=== PATIENT | male | born 1970 | race Caucasian/White ===

== ENCOUNTER 2019-03-28 12:51 | Emergency (ER) | payer OTHER ==
--- NOTE | 2019-03-28 12:56 | ERPHSYRPT ---
- History of Present Illness Time Seen by Provider: 03/28/19 12:56 Source: patient Exam Limitations: no limitations Physician History: 48 y/o white male with h/o multiple sclerosis fell onto to his feet from height of step ladder. pt complains of left lateral lower left pain. hurts to bear weight Method of Injury: fell Occurred: yesterday Quality: constant, aching Severity of Pain-Max: moderate Severity of Pain-Current: moderate Lower Extremities Pain: leg: left Modifying Factors: Improves With: movement Associated Symptoms: other (hurts to bear weight) Allergies/Adverse Reactions: No Known Drug Allergies Allergy (Unverified 03/28/19 13:03) Home Medications: Amlodipine Besylate 10 mg PO DAILY 03/28/19 [History] Dextroamphetamine/Amphetamine [Dextroamp-Amphetamin 15 mg Tab] 15 mg PO DAILY [History] Duloxetine HCl 60 mg PO DAILY 03/28/19 [History] Gabapentin 300 mg PO DAILY 03/28/19 [History] Glatiramer Acetate 40 mg IM WEEKLY 03/28/19 [History] Zolpidem Tartrate 10 mg PO HS 03/28/19 [History] - Review of Systems Constitutional: No Symptoms Eyes: No Symptoms Ears, Nose, & Throat: No Symptoms Respiratory: No Symptoms Cardiac: No Symptoms Abdominal/Gastrointestinal: No Symptoms Genitourinary Symptoms: No Symptoms Musculoskeletal: No Symptoms Skin: No Symptoms Neurological: No Symptoms Psychological: No Symptoms Endocrine: No Symptoms Hematologic/Lymphatic: No Symptoms Immunological/Allergic: No Symptoms All Other Systems: Reviewed and Negative - Past Medical History Pertinent Past Medical History: Yes Neurological History: No Pertinent History ENT History: No Pertinent History Cardiac History: No Pertinent History Respiratory History: No Pertinent History Endocrine Medical History: No Pertinent History Musculoskeletal History: No Pertinent History GI Medical History: No Pertinent History History: No Pertinent History - Past Surgical History Past Surgical History: No Neuro Surgical History: No Pertinent History Cardiac: No Pertinent History Respiratory: No Pertinent History Gastrointestinal: No Pertinent History Genitourinary: No Pertinent History Musculoskeletal: No Pertinent History Male Surgical History: No Pertinent History - Nursing Vital Signs Nursing Vital Signs: Initial Vital Signs Temperature 97.7 F 03/28/19 12:58 Pulse Rate 85 03/28/19 12:58 Respiratory Rate 20 03/28/19 12:58 Blood Pressure 134/85 03/28/19 12:58 O2 Sat by Pulse Oximetry 100 03/28/19 12:58 Pain Scale Pain Intensity 0 - Physical Exam General Appearance: mild distress, alert, anxiety Eyes, Ears, Nose, Throat Exam: normal ENT inspection, moist mucous membranes Neck Exam: normal inspection, non-tender, supple, full range of motion Cardiovascular/Respiratory Exam: chest non-tender Gastrointestinal/Abdominal Exam: non-tender Back Exam: normal inspection, normal range of motion, No CVA tenderness, No vertebral tenderness Hips Exam: bilateral: non-tender, normal inspection, normal range of motion, no evidence of injury Legs Exam: right leg: non-tender, left leg: bone tenderness, soft tissue tenderness, bilateral leg: normal inspection, normal range of motion, no evidence of injury Knees Exam: bilateral knee: non-tender, normal inspection, normal range of motion, no evidence of injury Ankle Exam: bilateral ankle: non-tender, normal inspection, normal range of motion, no evidence of injury Foot Exam: bilateral foot: non-tender, normal inspection, normal range of motion , no evidence of injury Neuro/Tendon Exam: normal sensation, normal motor functions, normal tendon functions, responds to pain Mental Status Exam: alert, oriented x 3, cooperative Skin Exam: normal color, warm, dry SpO2 Interpretation: normal O2 Delivery: Room Air - Course Nursing assessment & vital signs reviewed: Yes Ordered Tests: Active Orders 24 hr Category Date Time Status Crutches STAT Care 03/28/19 14:21 Ordered LOWER LEG Stat Exams 03/28/19 13:11 Completed - Progress Progress: unchanged Progress Note: 03/28/19 14:28 xray left lower leg-no acute fx or dislocation Counseled pt/family regarding: diagnosis, need for follow-up, rad results - Departure Departure Disposition: Home Clinical Impression: Left leg pain Condition: Stable Critical Care Time: No Referrals: DOCTOR,NO FAMILY [Primary Care Provider] - Additional Instructions: ice pack to area 3 times daily for 2 days. ibuprofen 600mg orall tid with food. follow up with primary doctor for persistent symptoms. crutches for comfort but weight bearing as tolerated. Prescriptions: Oxycodone HCl/Acetaminophen [Percocet 5-325 mg Tablet] 1 each PO Q12H PRN PRN # 6 tablet MDD 2 PRN Reason: Pain
--- NOTE | 2019-03-28 13:45 | XRAY ---
Indication: Pain following fall. Comparison: None 2 views of the left lower leg demonstrates spurring of the patella, proximal tibia, and posterior calcaneus. No other bony, articular, or soft tissue abnormalities.
[2019-03-28 14:21] VITALS: BP 108/82; PULSE 82; O2SAT 99
[2019-03-28] MEDS ORDERED: PERCOCET TABLET 5/325MG PO STA (14:21)
[2019-03-28] MEDS ORDERED: PERCOCET TABLET 5/325MG ONE (14:45)
== END 2019-03-28 15:05 | disposition home or self-care (01) ==
LOC: ED 12:51
DX: M79.605 Pain in left leg (principal); G35 Multiple sclerosis; W17.89XA Other fall from one level to another, initial encounter; W11.XXXA Fall on and from ladder, initial encounter
CPT/HCPCS: 73590; 99283; A9270-GY

== ENCOUNTER 2019-09-06 11:31 | Emergency (ER) | payer MEDICARE ==
[2019-09-06] MEDS ORDERED: TORAdol 30 mg Injection IV ONE (11:45)
[2019-09-06] MEDS ORDERED: TORAdol 30 mg Injection ONE (12:05)
[2019-09-06 12:12] LABS: Absolute Neutrophil Ct (ANC) 4.19 (1.4-6.9); BASOPHIL % 0.6 % (0.0-0.4); Basophil (Absolute #) 0.04 (0-0.4); Eosinophil (Absolute #) 0.07 (0-0.5); Hematocrit 42.8 % (42-50); Hemoglobin 14.4 gm/dl (12.5-18.0); Lymphocyte (Absolute #) 1.97 (1.0-4.6); Mean Cell Volume 98.8 fl (78-100); Mean Corpuscular Hemoglobin 33.3 pg (26-32); Mean Corpuscular Hgb Concent. 33.6 g/dl (32-36); Mean Platelet Volume 8.7 fl (7.5-11.0); Monocyte (Absolute #) 0.77 (0.0-1.3); Monocytes % 10.9 % (0.0-12.0); Neutrophil % 59.5 % (36.0-66.0); Platelet Count 379 K/mm3 (150-450); Red Blood Count 4.33 M/mm3 (4.1-5.6); Red Cell Distribution Width 12.7 % (11.5-14.0)
[2019-09-06 12:21] LABS: ALBUMIN 4.5 g/dL (3.5-5.0); ALKALINE PHOSPHATASE 102 U/L (38-126); ANION GAP 12.4 MEQ/L (5-15); BLOOD UREA NITROGEN 14 mg/dL (9-20); CHLORIDE 105 mmol/L (98-107); Carbon Dioxide 29 mmol/L (22-30); Creatinine 1 0.84 mg/dL (0.66-1.25); Glucose 97 mg/dL (74-106); Potassium 5.2 mmol/L (3.5-5.1); SGOT/AST 22 U/L (17-59); SGPT/ALT 16 U/L (0-50); SODIUM 141 mmol/L (137-145); Total Protein 8.1 g/dL (6.3-8.2)
--- NOTE | 2019-09-06 12:37 | XRAY ---
Indication: Right hip pain 6 weeks. No known injury. Comparison: None AP pelvis and 2 views of the right hip demonstrates mild bilateral superior acetabular sclerosis/spurring and a few pelvic phleboliths. No other bony, articular, or soft tissue abnormalities.
--- NOTE | 2019-09-06 12:47 | ERPHSYRPT ---
- History of Present Illness Time Seen by Provider: 09/06/19 12:00 Source: patient Exam Limitations: no limitations Patient Subjective Stated Complaint: Pt has been seeing a neurologist for 2 years and they think he has MS but hasn't given a fore sure diagnosis as of this time, pt has been going to physical therapy for the past 6 weeks and it has caused his right hip to have severe pain that radiates down his entire leg, unable to have a bowel movement due to the leg pain, hx of chemo cancer and did do chemo and radiation in 2013 in the colon, Triage Nursing Assessment: Pt came to the ER from PT, in a hospital wheelchair, unable to get up or ambulate without help, severe pain from his right hip when standing, vitals wnl, pulses normal, krys strength normal, rates pain while laying as 3/10 but upon standing it is a 10/10, pain to right hip with palpatation Physician History: Patient is a 49-year-old male presents to our ED for evaluation of acute on chronic right hip pain. Patient states that he is currently being worked up for multiple sclerosis. The diagnosis has not been confirmed. However patient has been experiencing right hip pain which they believe is related to his possible multiple sclerosis. Patient's hip pain has been becoming more intense and frequent. Patient is currently in physical therapy for his right hip pain pain described as a sharp pain that tends to radiate down his right leg. Pain worse with weightbearing, movement, prolonged sitting posture and Valsalva maneuvers while having a bowel movement. Of note patient has a history of colon cancer previously treated with chemo and radiation. Last chemo was in 2013. Patient denies interval trauma. No fever. No nausea or vomiting. No diarrhea. No abdominal pain. Patient voices no other complaints at this time., Method of Injury: unknown Quality: sharpness Severity of Pain-Max: severe Severity of Pain-Current: severe Lower Extremities Pain: hip: right Modifying Factors: Improves With: immobilization, movement Associated Symptoms: No dizzy, No fainted, No seizure, No snapping sensation, No popping sensation Allergies/Adverse Reactions: No Known Drug Allergies Allergy (Verified 09/06/19 11:56) Home Medications: Amlodipine Besylate 10 mg PO DAILY 03/28/19 [History] Dextroamphetamine/Amphetamine [Dextroamp-Amphetamin 15 mg Tab] 15 mg PO DAILY [History] Duloxetine HCl 60 mg PO DAILY 03/28/19 [History] Gabapentin 900 mg PO TID 03/28/19 [History] Glatiramer Acetate 40 mg IM WEEKLY 03/28/19 [History] Buspirone HCl [Buspar] 15 mg PO TID 09/06/19 [History] Hx Tetanus, Diphtheria Vaccination/Date Given: Yes Hx Influenza Vaccination/Date Given: Yes Hx Pneumococcal Vaccination/Date Given: No - Review of Systems Constitutional: No Fever, No Chills Eyes: No Symptoms Ears, Nose, & Throat: No Symptoms Respiratory: No Cough, No Dyspnea Cardiac: No Symptoms, No Chest Pain, No Edema, No Syncope Abdominal/Gastrointestinal: No Symptoms, No Abdominal Pain, No Nausea, No Vomiting, No Diarrhea Genitourinary Symptoms: No Symptoms, No Dysuria Musculoskeletal: No Symptoms, No Back Pain, No Neck Pain Skin: No Symptoms, No Rash Neurological: No Dizziness, No Focal Weakness, No Sensory Changes Psychological: No Symptoms Endocrine: No Symptoms All Other Systems: Reviewed and Negative - Past Medical History Pertinent Past Medical History: Yes Neurological History: Other ENT History: No Pertinent History Cardiac History: High Cholesterol, Hypertension Respiratory History: No Pertinent History Endocrine Medical History: No Pertinent History Musculoskeletal History: Fibromyalgia, Osteoarthritis GI Medical History: No Pertinent History History: No Pertinent History Other Medical History: History of Colon CA, 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 meningitis - Past Surgical History Past Surgical History: No Neuro Surgical History: No Pertinent History Cardiac: No Pertinent History Respiratory: No Pertinent History Gastrointestinal: Appendectomy Genitourinary: No Pertinent History Musculoskeletal: Orthopedic Surgery Male Surgical History: No Pertinent History Other Surgical History: rt leg. colon. hernia. appendix - Social History Smoking Status: Former smoker Exposure to second hand smoke: No Drug Use: none Patient Lives Alone: Yes - Nursing Vital Signs Nursing Vital Signs: Initial Vital Signs Temperature 98.0 F 09/06/19 11:43 Pulse Rate 77 09/06/19 11:43 Blood Pressure 130/84 09/06/19 11:43 O2 Sat by Pulse Oximetry 99 09/06/19 11:43 Pain Scale Pain Intensity 8 - Physical Exam General Appearance: alert Eyes, Ears, Nose, Throat Exam: moist mucous membranes Neck Exam: non-tender, supple Cardiovascular/Respiratory Exam: chest non-tender, normal breath sounds, regular rate/rhythm, no respiratory distress Gastrointestinal/Abdominal Exam: non-tender, guarding Back Exam: normal inspection, No vertebral tenderness Hips Exam: right: pain, other (Muscular tenderness palpation at the anterolateral aspect of the right hip.) Neuro/Tendon Exam: normal sensation, normal motor functions Mental Status Exam: alert, oriented x 3, cooperative Skin Exam: normal color, warm, dry SpO2 Interpretation: normal SpO2: 99 O2 Delivery: Room Air - Course Nursing assessment & vital signs reviewed: Yes - Radiology Exams Hip X-ray Interpretation: Teleradiologist Report (No acute pathology) - CT Exams Lower Extremity CT Interpretation: Tele-radiologist Report (suggestive of AVN, Rt. hip) Ordered Tests: Active Orders 24 hr Category Date Time Status IV Insertion STAT Care 09/06/19 11:44 Active HIP UNI (2V) INCL PEL IF DONE Stat Exams 09/06/19 11:42 Completed LOWER EXTREMITY WO CONTRAST [CT] Stat Exams 09/06/19 12:57 Completed CBC W DIFF Stat Lab 09/06/19 12:00 Completed CMP Stat Lab 09/06/19 12:00 Completed Erythrocyte Sedimentation Rate Stat Lab 09/06/19 12:00 Completed Medication Summary Discontinued Medications Generic Name Dose Route Start Last Admin Trade Name Freq PRN Reason Stop Dose Admin Dexamethasone Sodium Phosphate 10 mg 09/06/19 14:15 09/06/19 14:26 Decadron 10mg Inj. IV 09/06/19 14:16 Not Given STAT ONE Dexamethasone Sodium Phosphate Confirm 09/06/19 14:21 Decadron 10mg Inj. Administered 09/06/19 14:22 Dose 10 mg .ROUTE .STK-MED ONE Ketorolac Tromethamine 30 mg 09/06/19 11:45 09/06/19 12:08 Toradol 30 Mg Injection IV 09/06/19 11:46 30 mg STAT ONE Administration Ketorolac Tromethamine Confirm 09/06/19 12:05 Toradol 30 Mg Injection Administered 09/06/19 12:06 Dose 30 mg .ROUTE .STK-MED ONE Morphine Sulfate 2 mg 09/06/19 12:58 09/06/19 13:22 Morphine Sulfate 2 Mg Inj IV 09/06/19 12:59 2 mg STAT ONE Administration Morphine Sulfate Confirm 09/06/19 13:21 Morphine Sulfate 2 Mg Inj Administered 09/06/19 13:22 Dose 2 mg .ROUTE .K-MED ONE Lab/Rad Data: Laboratory Result Diagrams 09/06/19 12:00 09/06/19 12:00 Laboratory Results 09/06/19 09/06/19 09/06/19 Range/Units 12:00 12:00 12:00 WBC 7.0 (4.0-10.5) K/mm3 RBC 4.33 (4.1-5.6) M/mm3 Hgb 14.4 (12.5-18.0) gm/dl Hct 42.8 (42-50) % MCV 98.8 (78-100) fl MCH 33.3 H (26-32) pg MCHC 33.6 (32-36) g/dl RDW 12.7 (11.5-14.0) % Plt Count 379 (150-450) K/mm3 MPV 8.7 (7.5-11.0) fl Gran % 59.5 (36.0-66.0) % Eos # (Auto) 0.07 (0-0.5) Absolute Lymphs (auto) 1.97 (1.0-4.6) Absolute Monos (auto) 0.77 (0.0-1.3) Lymphocytes % 28.0 (24.0-44.0) % Monocytes % 10.9 (0.0-12.0) % Eosinophils % 1.0 (0.00-5.0) % Basophils % 0.6 (0.0-0.4) % Absolute Granulocytes 4.19 (1.4-6.9) Basophils # 0.04 (0-0.4) ESR 42 H (0-15) mm/hr Sodium 141 (137-145) mmol/L Potassium 5.2 H (3.5-5.1) mmol/L Chloride 105 (98-107) mmol/L Carbon Dioxide 29 (22-30) mmol/L Anion Gap 12.4 (5-15) MEQ/L BUN 14 (9-20) mg/dL Creatinine 0.84 (0.66-1.25) mg/dL Estimated GFR > 60.0 ML/MIN Glucose 97 (74-106) mg/dL Calcium 10.0 (8.4-10.2) mg/dL Total Bilirubin 0.60 (0.2-1.3) mg/dL AST 22 (17-59) U/L ALT 16 (0-50) U/L Alkaline Phosphatase 102 (38-126) U/L Serum Total Protein 8.1 (6.3-8.2) g/dL Albumin 4.5 (3.5-5.0) g/dL - Progress Progress: improved Progress Note: 09/06/19 14:29 Patient reassessed. Pain much improved after ministration of morphine. CT suggestive of AVN of the right hip. Patient referred to orthopedic clinic. 09/06/19 14:31 Will prescribe a short course of norco Counseled pt/family regarding: lab results, diagnosis, need for follow-up, rad results - Departure Departure Disposition: Home Clinical Impression: AVN (avascular necrosis of bone), Hip pain Condition: Stable Critical Care Time: No Referrals: HARLEEN GO MD [Primary Care Provider] - Additional Instructions: Discharge/Care Plan JALEN MORA was seen on 09/06/19 in the Emergency Room. The patient was counseled regarding Diagnosis,Lab results, Imaging studies, need for follow up and when to return to the Emergency Room. Prescriptions given: Discharge Note I have spoken with the patient and/or caregivers. I have explained the patient' s condition, diagnosis and treatment plan based on the information available to me at this time. I have answered the patient's and/or caregiver's questions and addressed any concerns. The patient and/or caregivers have as good understanding of the patient's diagnosis, condition and treatment plan as can be expected at this point. The vital signs have been stable. The patient's condition is stable and appropriate for discharge from the emergency department. The patient will pursue further outpatient evaluation with the primary care physician or other designated or consulting physician as outlined in the discharge instructions. The patient and/or caregivers are agreeable to this plan of care and follow-up instructions have been explained in detail. The patient and/or caregivers have received these instruction. The patient/and or caregivers are aware that any significant change in condition or worsening of symptoms should prompt an immediate return to this or the closest emergency department or call 911. Prescriptions: Hydrocodone/APAP 5-325 Tab^^^ [Hiram 5-325 Tablet^^^] 1 tab PO Q6HPRN PRN #10 tablet MDD 6 PRN Reason: Pain Outpatient Orders: Ortho Referral Time Frame: 1 Day, Location: ORTHO CLINIC
[2019-09-06] MEDS ORDERED: MORPHINE SULFATE 2 MG INJ IV ONE (12:58)
[2019-09-06] MEDS ORDERED: MORPHINE SULFATE 2 MG INJ ONE (13:21)
--- NOTE | 2019-09-06 13:49 | XRAY ---
Indication: Right hip pain 6 weeks. No known injury. Multiple contiguous axial images obtained through the right hip. Two-dimensional sagittal and coronal reformatted images obtained. Comparison: None Right hip articulation intact without large effusion. Joint space preserved. Anterior superior aspect of the femur head demonstrates subtle subcortical serpiginous sclerotic line as seen in avascular necrosis. No bony remodeling or osseous destructive process. Femur head also demonstrated 8 mm subcortical cyst anteriorly. Superior acetabulum demonstrates mild bony spurring. Minimal vascular calcifications. Remaining visualized noncontrasted soft tissues unremarkable. Impression: 1. Femur head subcortical serpiginous sclerotic line. Rule out avascular necrosis. 2. Tiny femur head subcortical cyst and superior acetabulum bony spurring both presumed degenerative.
[2019-09-06] MEDS ORDERED: DECADRON 10MG INJ. ONE (14:21)
[2019-09-06] MEDS: DECADRON 10MG INJ. IV ONE ×2 (14:23→14:26)
[2019-09-06 14:50] VITALS: BP 157/78; PULSE 88; O2SAT 97
== END 2019-09-06 14:51 | disposition home or self-care (01) ==
LOC: ED 11:31
DX: M87.9 Osteonecrosis, unspecified (principal); M25.551 Pain in right hip; Z85.038 Personal history of other malignant neoplasm of large intestine; Z79.899 Other long term (current) drug therapy; E78.00 Pure hypercholesterolemia, unspecified; I10 Essential (primary) hypertension; M79.7 Fibromyalgia
CPT/HCPCS: 36415; 73502; 73700; 80053; 85025; 85652; 86140; 96374; 96375; 99284; J1100; J1885; J2270

== ENCOUNTER 2021-04-17 05:45 | Day surgery (SDC) | payer MEDICARE ==
[2021-04-17] MEDS ORDERED: Lactated Ringers 1,000 ML IV SCH (07:00)
[2021-04-17] MEDS ORDERED: DIPRIVAN 200 MG/20 ML IV ONE ×2 (07:25→07:56)
--- NOTE | 2021-04-17 09:19 | OP ---
SURGERY DATE/TIME: 04/17/2021 0745 PREOPERATIVE DIAGNOSIS: Prior history of colon cancer. POSTOPERATIVE DIAGNOSIS: Normal colon. PROCEDURE: Diagnostic colonoscopy. SURGEON: Stuart Jones M.D. ANESTHESIA: MAC by Rambo Yepez CRNA. ESTIMATED BLOOD LOSS: None. SPECIMENS: None. DESCRIPTION OF PROCEDURE: After informed written consent was obtained, the patient was taken to the endoscopy suite. He was placed in the left lateral decubitus position. Anesthesia was titrated to desired level of consciousness. Digital rectal exam showed normal sphincter tone and no internal lesions. The scope was inserted into the rectum and sequentially the entire colonic mucosa was traversed. The level of cecum was reached and verified with direct visualization of the ileocecal valve. Upon withdrawal careful mucosal inspection revealed no gross abnormalities, prep was noted to be good. Prior to withdrawal retroflexion was performed and showed no internal lesions. The scope was removed and the patient was transferred to the recovery room in good condition.
[2021-04-17 09:20] VITALS: BP 152/79; PULSE 71; O2SAT 98
== END 2021-04-17 08:57 | disposition home or self-care (01) ==
LOC: SDC 05:45
PROVIDERS: ATTEND Family Medicine
DX: Z08 Encounter for follow-up examination after completed treatment for malignant neoplasm (principal); Z85.038 Personal history of other malignant neoplasm of large intestine; I10 Essential (primary) hypertension; E78.5 Hyperlipidemia, unspecified; F90.9 Attention-deficit hyperactivity disorder, unspecified type; Z79.899 Other long term (current) drug therapy
CPT/HCPCS: J2704

== ENCOUNTER 2021-11-24 12:20 | Observation (INO) | payer MEDICARE ==
[2021-11-24] MEDS ORDERED: Sodium Chloride 0.9% 1000 ML 1,000 ML ONE ×3 (12:45→17:36)
[2021-11-24] MEDS ORDERED: Sodium Chloride 0.9% 1000 ML 1,000 ML IV STA ×2 (12:54→14:55)
[2021-11-24] MEDS ORDERED: Zofran 4 MG/2 ML VIAL IV ONE (12:54)
[2021-11-24] MEDS ORDERED: Hydromorphone 1 mg/ml Injection IV ONE ×2 (12:54→14:55)
[2021-11-24] MEDS ORDERED: PROTONIX 40 MG IV IV ONE ×2 (12:54→12:57)
[2021-11-24] MEDS ORDERED: Zofran 4 MG/2 ML VIAL ONE (12:57)
[2021-11-24] MEDS ORDERED: Hydromorphone 1 mg/ml Injection ONE ×2 (12:58→15:02)
--- NOTE | 2021-11-24 13:07 | ERPHSYRPT ---
- History of Present Illness Time Seen by Provider: 11/24/21 12:29 Historian: patient Exam Limitations: no limitations Patient Subjective Stated Complaint: to er c/o excessive diarrhea/abd pain and back pain with severe weakness noted. Triage Nursing Assessment: pt arrives pale/w/d resp easy, a@ox3. pt denies any vomiting. pt has had 2 moderate diarrhea movements since arrival all clear liquid no blood noted Physician History: 51 years old male presented in the ER with 3 days history of abdominal pain with nausea and multiple episodes of loose stool. Patient reports initially it was dark stool followed by loose watery. Multiple episodes. Not able to hold anything down. He took [id number] Imodium with no significant relief. Pain is more in the left lower quadrant, aggravated with palpation movements and bowel movement. No fever or chills reported. Patient reports generalized weakness fatigue tiredness etc. prior Timing/Duration: day(s) (3), constant, gradual onset, worse Activities at Onset: rest Quality: sharpness Abdominal Pain Onset Location: LLQ, generalized abdomen Pain Radiation: no radiation Severity of Pain-Max: moderate Severity of Pain-Current: moderate Modifying Factors: Worsens With: palpation Associated Symptoms: diarrhea, nausea, No vomiting Previous symptoms: no prior history Allergies/Adverse Reactions: No Known Drug Allergies Allergy (Verified 09/06/19 11:56) Home Medications: Duloxetine HCl 30 mg PO BID 03/28/19 [History] Gabapentin 900 mg PO BID 03/28/19 [History] Atorvastatin Calcium [Lipitor] 40 mg PO DAILY 04/14/21 [History] Lisinopril 20 mg [Zestril 20 MG] 20 mg PO DAILY 04/14/21 [History] Meloxicam 15 mg [Meloxicam 15 MG] 15 mg PO BID 11/24/21 [History] Modafinil 100 mg [Provigil 100MG Tablet] 200 mg PO BID 11/24/21 [History] Hx Tetanus, Diphtheria Vaccination/Date Given: Yes Hx Influenza Vaccination/Date Given: Yes Hx Pneumococcal Vaccination/Date Given: No Travel Risk - International Travel Have you traveled outside of the country in past 3 weeks: No - Coronavirus Screening Are you exhibiting any of the following symptoms?: No Close contact with a COVID-19 positive Pt in past 14-21 Days: No - Vaccine Status Have you recieved a Covid-19 vaccination: Yes [employer]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: [employer] - Review of Systems Constitutional: No Symptoms Eyes: No Symptoms Ears, Nose, & Throat: No Symptoms Respiratory: No Symptoms Cardiac: No Symptoms Abdominal/Gastrointestinal: Abdominal Pain, Nausea, Diarrhea Genitourinary Symptoms: No Symptoms Musculoskeletal: No Symptoms Skin: No Symptoms Neurological: No Symptoms Psychological: No Symptoms Endocrine: No Symptoms Hematologic/Lymphatic: No Symptoms Immunological/Allergic: No Symptoms - Past Medical History Pertinent Past Medical History: Yes Neurological History: Peripheral Neuropathy ENT History: No Pertinent History Cardiac History: High Cholesterol, Hypertension Respiratory History: No Pertinent History Endocrine Medical History: No Pertinent History Musculoskeletal History: Fibromyalgia, Osteoarthritis GI Medical History: Colorectal Cancer History: No Pertinent History Psycho-Social History: No Pertinent History Male Reproductive Disorders: No Pertinent History Other Medical History: History of Colon CA remission, MS - Past Surgical History Past Surgical History: No Neuro Surgical History: No Pertinent History Cardiac: No Pertinent History Respiratory: No Pertinent History Gastrointestinal: Appendectomy, Colon Resection, Hernia Repair Genitourinary: No Pertinent History Musculoskeletal: Joint Replacement, Orthopedic Surgery Male Surgical History: No Pertinent History Other Surgical History: open repair right femur. right hip replacement - Social History Smoking Status: Former smoker Exposure to second hand smoke: No Drug Use: none Patient Lives Alone: Yes - Nursing Vital Signs Nursing Vital Signs: Initial Vital Signs Temperature 98.1 F 11/24/21 12:27 Pulse Rate 73 11/24/21 12:27 Respiratory Rate 16 11/24/21 12:27 Blood Pressure 171/97 11/24/21 12:27 O2 Sat by Pulse Oximetry 99 11/24/21 12:27 Pain Scale Pain Intensity 8 - Physical Exam General Appearance: no apparent distress, alert Eye Exam: PERRL/EOMI Ears, Nose, Throat Exam: normal ENT inspection, pharynx normal Neck Exam: normal inspection, supple, full range of motion Respiratory Exam: normal breath sounds, lungs clear Cardiovascular Exam: regular rate/rhythm, normal heart sounds Gastrointestinal/Abdomen Exam: soft, normal bowel sounds, tenderness (Left lower quadrant), guarding Back Exam: normal inspection, normal range of motion Extremity Exam: normal inspection, normal range of motion, pelvis stable Neurologic Exam: alert, oriented x 3, cooperative Skin Exam: normal color SpO2 Interpretation: normal SpO2: 99 O2 Delivery: Room Air - Course EKG Interpreted by Me: RATE (72), Sinus Rhythm, NORMAL AXIS, NORMAL INTERVALS, NORMAL QRS Ordered Tests: Active Orders 24 hr Category Date Time Status IV Insertion STAT Care 11/24/21 12:54 Active NPO (ED) STAT Care 11/24/21 12:54 Active ABDOMEN AND PELVIS W/0 CONTRAS [CT] Stat Exams 11/24/21 13:18 Taken CBC W DIFF Stat Lab 11/24/21 12:54 Completed CMP Stat Lab 11/24/21 12:54 Completed LIPASE Stat Lab 11/24/21 12:54 Completed Lactic Acid Stat Lab 11/24/21 13:14 Completed UA W/RFX CULTURE Stat Lab 11/24/21 16:02 Ordered Transfer Order Routine Transfer 11/24/21 Ordered Medication Summary Discontinued Medications Generic Name Dose Route Start Last Admin Trade Name Freq PRN Reason Stop Dose Admin Hydromorphone HCl 0.5 mg 11/24/21 12:54 11/24/21 13:03 Hydromorphone 1 Mg/1ml Inj 1 Mg/Ml Syringe IV 11/24/21 12:55 0.5 mg STAT ONE Administration Hydromorphone HCl Confirm 11/24/21 12:58 Hydromorphone 1 Mg/1ml Inj 1 Mg/Ml Syringe Administered 11/24/21 12:59 Dose 1 mg .ROUTE .STK-MED ONE Hydromorphone HCl 1 mg 11/24/21 14:55 11/24/21 15:05 Hydromorphone 1 Mg/1ml Inj 1 Mg/Ml Syringe IV 11/24/21 14:56 1 mg STAT ONE Administration Hydromorphone HCl Confirm 11/24/21 15:02 Hydromorphone 1 Mg/1ml Inj 1 Mg/Ml Syringe Administered 11/24/21 15:03 Dose 1 mg .ROUTE .STK-MED ONE Sodium Chloride Confirm 11/24/21 12:45 Sodium Chloride 0.9% 1000 Ml Administered 11/24/21 12:46 Dose 1,000 mls @ ud .ROUTE .STK-MED ONE Sodium Chloride 1,000 mls @ 999 mls/hr 11/24/21 12:54 11/24/21 14:16 Sodium Chloride 0.9% 1000 Ml IV 11/24/21 13:54 Infused .Q1H1M STA Infusion Sodium Chloride 1,000 mls @ 999 mls/hr 11/24/21 14:55 11/24/21 15:04 Sodium Chloride 0.9% 1000 Ml IV 11/24/21 15:55 999 mls/hr .Q1H1M STA Administration Sodium Chloride Confirm 11/24/21 15:02 Sodium Chloride 0.9% 1000 Ml Administered 11/24/21 15:03 Dose 1,000 mls @ ud .ROUTE .STK-MED ONE Ondansetron HCl 4 mg 11/24/21 12:54 11/24/21 13:04 Ondansetron Hcl 4 Mg/2 Ml Vial IV 11/24/21 12:55 4 mg STAT ONE Administration Ondansetron HCl Confirm 11/24/21 12:57 Ondansetron Hcl 4 Mg/2 Ml Vial Administered 11/24/21 12:58 Dose 4 mg .ROUTE .STK-MED ONE Pantoprazole Sodium 40 mg 11/24/21 12:54 11/24/21 13:03 Pantoprazole 40 Mg Vial IV 11/24/21 12:55 40 mg STAT ONE Administration Pantoprazole Sodium Confirm 11/24/21 12:57 Pantoprazole 40 Mg Vial Administered 11/24/21 12:58 Dose 40 mg IV .STK-MED ONE Lab/Rad Data: Laboratory Result Diagrams 11/24/21 12:54 11/24/21 12:54 Laboratory Results 11/24/21 11/24/21 11/24/21 Range/Units 13:35 13:14 12:54 WBC (4.0-10.5) x10^3/uL RBC (4.1-5.6) x10^6/uL Hgb (12.5-18.0) g/dL Hct (42-50) % MCV (78-100) fL MCH (26-32) pg MCHC (32-36) g/dL RDW (11.5-14.0) % Plt Count (150-450) x10^3/uL MPV (7.5-11.0) fL Gran % (36.0-66.0) % Immature Gran % (Auto) (0.00-0.4) % Nucleat RBC Rel Count (0.00-0.1) % Eos # (Auto) (0-0.5) x10^3/uL Immature Gran # (Auto) (0.00-0.03) x10^3u/L Absolute Lymphs (auto) (1.0-4.6) x10^3/uL Absolute Monos (auto) (0.0-1.3) x10^3/uL Absolute Nucleated RBC (0.00-0.01) x10^3u/L Lymphocytes % (24.0-44.0) % Monocytes % (0.0-12.0) % Eosinophils % (0.00-5.0) % Basophils % (0.0-0.4) % Absolute Granulocytes (1.4-6.9) x10^3/uL Basophils # (0-0.4) x10^3/uL Sodium 140 (137-145) mmol/L Potassium 4.1 (3.5-5.1) mmol/L Chloride 108 H (98-107) mmol/L Carbon Dioxide 25 (22-30) mmol/L Anion Gap 10.6 (5-15) MEQ/L BUN 16 (9-20) mg/dL Creatinine 0.79 (0.66-1.25) mg/dL Estimated GFR > 60.0 ML/MIN Glucose 104 (74-106) mg/dL Lactic Acid 0.8 (0.4-2.0) Calcium 9.3 (8.4-10.2) mg/dL Total Bilirubin 0.30 (0.2-1.3) mg/dL AST 28 (17-59) U/L ALT 27 (0-50) U/L Alkaline Phosphatase 72 (38-126) U/L Serum Total Protein 6.3 (6.3-8.2) g/dL Albumin 3.6 (3.5-5.0) g/dL Lipase 140 (23-300) U/L C. difficile Screen NEGATIVE (NEGATIVE) C.difficile 027-NAP1-B1 PRESUMPTIVE NEGATIVE (NEGATIVE) 11/24/21 Range/Units 12:54 WBC 7.2 (4.0-10.5) x10^3/uL RBC 3.47 L (4.1-5.6) x10^6/uL Hgb 11.5 L (12.5-18.0) g/dL Hct 34.7 L (42-50) % MCV 100.0 (78-100) fL MCH 33.1 H (26-32) pg MCHC 33.1 (32-36) g/dL RDW 13.0 (11.5-14.0) % Plt Count 333 (150-450) x10^3/uL MPV 8.7 (7.5-11.0) fL Gran % 63.5 (36.0-66.0) % Immature Gran % (Auto) 0.3 (0.00-0.4) % Nucleat RBC Rel Count 0.0 (0.00-0.1) % Eos # (Auto) 0.22 (0-0.5) x10^3/uL Immature Gran # (Auto) 0.02 (0.00-0.03) x10^3u/L Absolute Lymphs (auto) 1.83 (1.0-4.6) x10^3/uL Absolute Monos (auto) 0.52 (0.0-1.3) x10^3/uL Absolute Nucleated RBC 0.00 (0.00-0.01) x10^3u/L Lymphocytes % 25.3 (24.0-44.0) % Monocytes % 7.2 (0.0-12.0) % Eosinophils % 3.0 (0.00-5.0) % Basophils % 0.7 (0.0-0.4) % Absolute Granulocytes 4.60 (1.4-6.9) x10^3/uL Basophils # 0.05 (0-0.4) x10^3/uL Sodium (137-145) mmol/L Potassium (3.5-5.1) mmol/L Chloride (98-107) mmol/L Carbon Dioxide (22-30) mmol/L Anion Gap (5-15) MEQ/L BUN (9-20) mg/dL Creatinine (0.66-1.25) mg/dL Estimated GFR ML/MIN Glucose (74-106) mg/dL Lactic Acid (0.4-2.0) Calcium (8.4-10.2) mg/dL Total Bilirubin (0.2-1.3) mg/dL AST (17-59) U/L ALT (0-50) U/L Alkaline Phosphatase (38-126) U/L Serum Total Protein (6.3-8.2) g/dL Albumin (3.5-5.0) g/dL Lipase (23-300) U/L C. difficile Screen (NEGATIVE) C.difficile 027-NAP1-B1 (NEGATIVE) - Progress Progress: improved, pain not gone completely, re-examined Progress Note: 11/24/21 14:54 51 years old is evaluated for abdominal pain with intractable diarrhea for the last 3 days. Patient has multiple episodes of diarrhea while in the ER. Lab work grossly unremarkable, CT finding consistent with enteritis. Given fluids along with symptomatic treatment on reevaluation feeling better. Has negative C. difficile. Discussed with Dr. Soni and patient is being admitted. Plan discussed with patient who understand and agrees with it. Will see patient in: hospital (observation) Counseled pt/family regarding: lab results, diagnosis, rad results - Departure Departure Disposition: Observation Clinical Impression: Acute gastroenteritis Condition: Stable Critical Care Time: No Referrals: NELDA CASTRO MD [Primary Care Provider] - Follow up/PCP as directed
[2021-11-24 13:17] LABS: Basophil (Absolute #) 0.05 x10^3/uL (0-0.4); Eosinophil (Absolute #) 0.22 x10^3/uL (0-0.5); Hematocrit 34.7 % (42-50); Hemoglobin 11.5 g/dL (12.5-18.0); Lymphocyte (Absolute #) 1.83 x10^3/uL (1.0-4.6); Lymphocytes % 25.3 % (24.0-44.0); Mean Corpuscular Hemoglobin 33.1 pg (26-32); Mean Corpuscular Hgb Concent. 33.1 g/dL (32-36); Mean Platelet Volume 8.7 fL (7.5-11.0); Monocyte (Absolute #) 0.52 x10^3/uL (0.0-1.3); Monocytes % 7.2 % (0.0-12.0); Neutrophil % 63.5 % (36.0-66.0); Platelet Count 333 x10^3/uL (150-450); Red Blood Count 3.47 x10^6/uL (4.1-5.6); White Blood Count 7.2 x10^3/uL (4.0-10.5)
[2021-11-24 13:22] LABS: ALBUMIN 3.6 g/dL (3.5-5.0); ALKALINE PHOSPHATASE 72 U/L (38-126); ANION GAP 10.6 MEQ/L (5-15); BLOOD UREA NITROGEN 16 mg/dL (9-20); CHLORIDE 108 mmol/L (98-107); Calcium 9.3 mg/dL (8.4-10.2); Carbon Dioxide 25 mmol/L (22-30); Creatinine 1 0.79 mg/dL (0.66-1.25); EST GLOMERULAR FILTRATION RATE > 60.0 ML/MIN; Glucose 104 mg/dL (74-106); LIPASE 140 U/L (23-300); Potassium 4.1 mmol/L (3.5-5.1); SGOT/AST 28 U/L (17-59); SGPT/ALT 27 U/L (0-50); SODIUM 140 mmol/L (137-145); Total Protein 6.3 g/dL (6.3-8.2)
[2021-11-24 14:27] LABS: 027 TOX PROD PRESUMPTIVE NEGATIVE (NEGATIVE); TOXIGENIC C. DIFF ORG NEGATIVE (NEGATIVE)
[2021-11-24 16:30] LABS: Appearance CLEAR (CLEAR); Bilirubin NEGATIVE (NEGATIVE); Dipstick done @ ? MAIN LAB; Glucose NEGATIVE (NEGATIVE); Ketones NEGATIVE (NEGATIVE); Nitrite NEGATIVE (NEGATIVE); Ph 5.5 (5-6); Protein,Urine Dip NEGATIVE (Negative); RBC NEGATIVE Ery/ul (0-5); Specific Gravity 1.015 (1.005-1.025); Urobilinogen 0.2 mg/dL (0-1)
[2021-11-24 16:34] LABS: RBC NONE SEEN /HPF (0-2); WBC NONE SEEN /HPF (0-5)
[2021-11-24 16:35] LABS: Bacteria NONE SEEN /HPF (NEGATIVE); Urine Cultured Indicated? NO
[2021-11-24] MEDS ORDERED: IMODIUM 2 MG PO ONE (17:04)
[2021-11-24 17:16] LABS: INFLUENZA A NEGATIVE (NEGATIVE); INFLUENZA B NEGATIVE (NEGATIVE); RESPIRATORY SYNCTIAL VIRUS NEGATIVE (Negative); SARS-CoV-2 Xpert Express NEGATIVE (NEGATIVE)
[2021-11-24] MEDS ORDERED: DUONEB 0.5-3 MG/3 ml Neb IH PRN (17:37)
[2021-11-24] MEDS ORDERED: MORPHINE SULFATE 4 MG INJ IV PRN (17:37)
[2021-11-24] MEDS ORDERED: Zofran 4 MG/2 ML VIAL IV PRN (17:37)
[2021-11-24] MEDS: Lomotil PO PRN ×2 (17:50→21:24)
[2021-11-24] MEDS: NEURONTIN PO SCH (18:29)
--- NOTE | 2021-11-24 19:40 | XRAY ---
Indication: Abdomen pain, nausea, and diarrhea. History colon cancer with resection 2013. Multiple contiguous axial images obtained through the abdomen and pelvis without contrast. Comparison: None Lung bases clear. Heart not enlarged. Intact right hip bipolar prosthesis produces beam artifact. Stomach is mildly distended with food/fluid. Noncontrasted stomach and bowel loops appear nonobstructed. Nonvisualization appendix. Intact sigmoid anastomosis. No free fluid/air. Nonobstructing 3 mm left renal calculus. Remaining liver, gallbladder, pancreas, spleen, adrenal glands, kidneys, ureters, and bladder appear unremarkable for noncontrast exam. Minimal aortoiliac calcifications without AAA. Osseous structures intact with minimal degenerative changes throughout the spine and mild levoscoliosis centered at L3. Impression: 1. Right total hip arthroplasty producing beam artifact. Chronic bony findings. 2. Nonobstructing left renal micro-calculus. 3. Remaining CT abdomen/pelvis without contrast exam is negative. Comment: Preliminary interpretation made by [facility]. No critical discrepancy.
[2021-11-24] MEDS: Cymbalta 30 MG Capsule PO SCH (21:24)
[2021-11-24] MEDS ORDERED: Provigil 100MG Tablet PO SCH (22:00)
[2021-11-24] MEDS: Hydromorphone 1 mg/ml Injection IV PRN (22:22)
[2021-11-24] MEDS: Sodium Chloride 0.9% W/ 20 mEq KCl/LITER 1,000 ML IV SCH (23:44)
[2021-11-25] MEDS: Hydromorphone 1 mg/ml Injection IV PRN ×4 (04:32→23:10)
[2021-11-25 05:23] LABS: Basophil (Absolute #) 0.04 x10^3/uL (0-0.4); Eosinophil % 3.9 % (0.00-5.0); Eosinophil (Absolute #) 0.25 x10^3/uL (0-0.5); Hematocrit 30.8 % (42-50); Hemoglobin 10.1 g/dL (12.5-18.0); Lymphocyte (Absolute #) 1.77 x10^3/uL (1.0-4.6); Lymphocytes % 27.8 % (24.0-44.0); Mean Corpuscular Hemoglobin 32.8 pg (26-32); Mean Corpuscular Hgb Concent. 32.8 g/dL (32-36); Mean Platelet Volume 8.7 fL (7.5-11.0); Monocyte (Absolute #) 0.58 x10^3/uL (0.0-1.3); Monocytes % 9.1 % (0.0-12.0); Neutrophil % 58.1 % (36.0-66.0); Platelet Count 285 x10^3/uL (150-450); Red Blood Count 3.08 x10^6/uL (4.1-5.6); White Blood Count 6.4 x10^3/uL (4.0-10.5)
[2021-11-25 05:58] LABS: ALBUMIN 3.1 g/dL (3.5-5.0); ALKALINE PHOSPHATASE 64 U/L (38-126); ANION GAP 7.9 MEQ/L (5-15); BLOOD UREA NITROGEN 13 mg/dL (9-20); CHLORIDE 110 mmol/L (98-107); Calcium 8.4 mg/dL (8.4-10.2); Carbon Dioxide 25 mmol/L (22-30); EST GLOMERULAR FILTRATION RATE > 60.0 ML/MIN; Glucose 85 mg/dL (74-106); Potassium 4.2 mmol/L (3.5-5.1); SGOT/AST 43 U/L (17-59); SGPT/ALT 26 U/L (0-50); SODIUM 139 mmol/L (137-145); Total Protein 5.6 g/dL (6.3-8.2)
[2021-11-25] MEDS: Sodium Chloride 0.9% W/ 20 mEq KCl/LITER 1,000 ML IV SCH ×3 (06:45→20:47)
[2021-11-25] MEDS: Provigil 100MG Tablet PO SCH ×2 (06:46→12:59)
[2021-11-25] MEDS ORDERED: LIPITOR 40MG PO SCH (10:00)
[2021-11-25] MEDS: Lomotil PO PRN (10:21)
[2021-11-25] MEDS: Cymbalta 30 MG Capsule PO SCH ×2 (10:21→21:11)
[2021-11-25] MEDS: ZOCOR 20MG PO SCH (10:21)
[2021-11-25] MEDS: Zestril 20 MG PO SCH (10:21)
[2021-11-25] MEDS: NEURONTIN PO SCH ×2 (10:22→21:11)
[2021-11-25] MEDS: PROTONIX 40 MG IV IV SCH (10:22)
--- NOTE | 2021-11-25 11:04 | PCM.HP ---
History of Present Illness - Chief Complaint Chief Complaint: Acute gastroenteritis History of Present Illness: is a 51 year old male pt of Dr. Jones (sees Adelina Warner) with hx colon ca (2013), MS, peripheral neuropathy, HTN, hyperlipidemia, and OA who was admitted through ER with enteritis. He had 4d of diarrhea, back/abd pain, and weakness. CT showed enteritis. He was neg for c. diff. He has been tolerating full liquid diet; did have episodes of diarrhea in the ER, but none overnight or this morning. Initially he says his stools were very dark, then became light colored. Denies any nausea/vomiting this morning. Right now c/o 7/10 low back pain, approx L4 midline, worse with movement. - Review of Systems Ears, Nose, & Throat: Nose Congestion Abdominal/Gastrointestinal: Abdominal Pain, Nausea, Vomiting, Diarrhea Musculoskeletal: Back Pain Neurological: Dizziness (x 4d), Parasthesia (chronic) All Other Systems: Reviewed and Negative Medications & Allergies Home Medications: Home Medication List Duloxetine HCl 30 mg PO BID 03/28/19 [History Confirmed 11/24/21] Gabapentin 900 mg PO BID 03/28/19 [History Confirmed 11/24/21] Atorvastatin Calcium [Lipitor] 40 mg PO DAILY 04/14/21 [History Confirmed 11/24/21] Lisinopril 20 mg [Zestril 20 MG] 20 mg PO DAILY 04/14/21 [History C onfirmed 11/24/21] Meloxicam 15 mg [Meloxicam 15 MG] 15 mg PO BID 11/24/21 [History Confirmed 11/24/21] Modafinil 100 mg [Provigil 100MG Tablet] 200 mg PO 0700,1300 11/24/21 [History Confirmed 11/24/21] Allergies/Adverse Reactions: Allergies Allergy/AdvReac Type Severity Reaction Status Date / Time No Known Drug Allergies Allergy Verified 09/06/19 11:56 - Past Medical History Past Medical History: Yes Neurological History: Peripheral Neuropathy ENT History: No Pertinent History Cardiac History: High Cholesterol, Hypertension Respiratory History: No Pertinent History Endocrine Medical History: No Pertinent History Musculoskelatal History: Fibromyalgia, Osteoarthritis GI Medical History: Colorectal Cancer History: No Pertinent History Pyscho-Social History: No Pertinent History Male Reproductive Disorders: No Pertinent History Comment: History of Colon CA remission, MS - Past Surgical History Past Surgical History: No Neuro Surgical History: No Pertinent History Cardiac History: No Pertinent History Respiratory Surgery: No Pertinent History GI Surgical History: Appendectomy, Colon Resection, Hernia Repair Genitourinary Surgical Hx: No Pertinent History Musculskeletal Surgical Hx: Joint Replacement, Orthopedic Surgery Male Surgical History: No Pertinent History Other Surgical History: open repair right femur. right hip replacement - Social History Smoking Status: Former smoker Exposure to second hand smoke: No Alcohol: Weekly Drug Use: none - Physical Exam Vital Signs: Vital Signs - 24 hr Temp Pulse Resp BP Pulse Ox 11/25/21 04:00 97.8 F 74 18 134/77 94 L 11/24/21 23:15 97.6 F 64 18 133/61 91 L 11/24/21 19:40 97.9 F 78 18 159/91 97 11/24/21 17:53 97.9 F 78 18 159/91 97 11/24/21 17:04 88 18 127/89 98 11/24/21 16:20 99 11/24/21 14:18 73 19 129/74 97 11/24/21 13:31 73 14 148/141 99 11/24/21 12:27 98.1 F 73 16 171/97 99 General Appearance: no apparent distress, alert Neurologic Exam: oriented x 3, cooperative Eye Exam: eyes nml inspection Ears, Nose, Throat Exam: moist mucous membranes Neck Exam: normal inspection Respiratory Exam: normal breath sounds, lungs clear, No crackles/rales, No rhonchi, No wheezing Cardiovascular Exam: regular rate/rhythm, normal heart sounds, No murmur Gastrointestinal/Abdomen Exam: soft, normal bowel sounds, tenderness (lower abdomen bilat), No distention, No mass, No guarding, No rebound Back Exam: normal inspection, other (the lumbar spine and paraspinal muscles are nttp throughout, no crepitus or lesions.) Extremity Exam: normal inspection, No swelling Skin Exam: normal color, warm, dry, No rash Results - Labs Lab/Micro Results: Lab Results-Last 24 Hours 11/24/21 11/24/21 11/24/21 Range/Units 12:54 12:54 13:14 WBC 7.2 (4.0-10.5) x10^3/uL RBC 3.47 L (4.1-5.6) x10^6/uL Hgb 11.5 L (12.5-18.0) g/dL Hct 34.7 L (42-50) % MCV 100.0 (78-100) fL MCH 33.1 H (26-32) pg MCHC 33.1 (32-36) g/dL RDW 13.0 (11.5-14.0) % Plt Count 333 (150-450) x10^3/uL MPV 8.7 (7.5-11.0) fL Gran % 63.5 (36.0-66.0) % Immature Gran % (Auto) 0.3 (0.00-0.4) % Nucleat RBC Rel Count 0.0 (0.00-0.1) % Eos # (Auto) 0.22 (0-0.5) x10^3/uL Immature Gran # (Auto) 0.02 (0.00-0.03) x10^3u/L Absolute Lymphs (auto) 1.83 (1.0-4.6) x10^3/uL Absolute Monos (auto) 0.52 (0.0-1.3) x10^3/uL Absolute Nucleated RBC 0.00 (0.00-0.01) x10^3u/L Lymphocytes % 25.3 (24.0-44.0) % Monocytes % 7.2 (0.0-12.0) % Eosinophils % 3.0 (0.00-5.0) % Basophils % 0.7 (0.0-0.4) % Absolute Granulocytes 4.60 (1.4-6.9) x10^3/uL Basophils # 0.05 (0-0.4) x10^3/uL Sodium 140 (137-145) mmol/L Potassium 4.1 (3.5-5.1) mmol/L Chloride 108 H (98-107) mmol/L Carbon Dioxide 25 (22-30) mmol/L Anion Gap 10.6 (5-15) MEQ/L BUN 16 (9-20) mg/dL Creatinine 0.79 (0.66-1.25) mg/dL Estimated GFR > 60.0 ML/MIN Glucose 104 (74-106) mg/dL Lactic Acid 0.8 (0.4-2.0) Calcium 9.3 (8.4-10.2) mg/dL Total Bilirubin 0.30 (0.2-1.3) mg/dL AST 28 (17-59) U/L ALT 27 (0-50) U/L Alkaline Phosphatase 72 (38-126) U/L Serum Total Protein 6.3 (6.3-8.2) g/dL Albumin 3.6 (3.5-5.0) g/dL Lipase 140 (23-300) U/L Urinalys Dipstick Clnc Urine Color (YELLOW) Urine Appearance (CLEAR) Urine pH (5-6) Ur Specific [place] (1.005-1.025) POC Urine Protein Conf (Negative) Urine Ketones (NEGATIVE) Urine Nitrite (NEGATIVE) Urine Bilirubin (NEGATIVE) Urine Urobilinogen (0-1) mg/dL Urine Leukocytes (NEGATIVE) Urine WBC (Auto) (0-5) /HPF Urine RBC (Auto) (0-2) /HPF U Epithel Cells (Auto) (FEW) /HPF Urine Bacteria (Auto) (NEGATIVE) /HPF Urine RBC (0-5) Jonny/ul Ur Culture Indicated? Urine Glucose (NEGATIVE) mg/dL C. difficile Screen (NEGATIVE) C.difficile 027-NAP1-B1 (NEGATIVE) Influenza Type A Ag (NEGATIVE) Influenza Type B Ag (NEGATIVE) RSV (PCR) (Negative) SARS-CoV-2 (PCR) (NEGATIVE) 11/24/21 11/24/21 11/24/21 Range/Units 13:35 16:02 Unknown WBC (4.0-10.5) x10^3/uL RBC (4.1-5.6) x10^6/uL Hgb (12.5-18.0) g/dL Hct (42-50) % MCV (78-100) fL MCH (26-32) pg MCHC (32-36) g/dL RDW (11.5-14.0) % Plt Count (150-450) x10^3/uL MPV (7.5-11.0) fL Gran % (36.0-66.0) % Immature Gran % (Auto) (0.00-0.4) % Nucleat RBC Rel Count (0.00-0.1) % Eos # (Auto) (0-0.5) x10^3/uL Immature Gran # (Auto) (0.00-0.03) x10^3u/L Absolute Lymphs (auto) (1.0-4.6) x10^3/uL Absolute Monos (auto) (0.0-1.3) x10^3/uL Absolute Nucleated RBC (0.00-0.01) x10^3u/L Lymphocytes % (24.0-44.0) % Monocytes % (0.0-12.0) % Eosinophils % (0.00-5.0) % Basophils % (0.0-0.4) % Absolute Granulocytes (1.4-6.9) x10^3/uL Basophils # (0-0.4) x10^3/uL Sodium (137-145) mmol/L Potassium (3.5-5.1) mmol/L Chloride (98-107) mmol/L Carbon Dioxide (22-30) mmol/L Anion Gap (5-15) MEQ/L BUN (9-20) mg/dL Creatinine (0.66-1.25) mg/dL Estimated GFR ML/MIN Glucose (74-106) mg/dL Lactic Acid (0.4-2.0) Calcium (8.4-10.2) mg/dL Total Bilirubin (0.2-1.3) mg/dL AST (17-59) U/L ALT (0-50) U/L Alkaline Phosphatase (38-126) U/L Serum Total Protein (6.3-8.2) g/dL Albumin (3.5-5.0) g/dL Lipase (23-300) U/L Urinalys Dipstick Clnc MAIN LAB Urine Color YELLOW (YELLOW) Urine Appearance CLEAR (CLEAR) Urine pH 5.5 (5-6) Ur Specific [place] 1.015 (1.005-1.025) POC Urine Protein Conf NEGATIVE (Negative) Urine Ketones NEGATIVE (NEGATIVE) Urine Nitrite NEGATIVE (NEGATIVE) Urine Bilirubin NEGATIVE (NEGATIVE) Urine Urobilinogen 0.2 (0-1) mg/dL Urine Leukocytes NEGATIVE (NEGATIVE) Urine WBC (Auto) NONE SEEN (0-5) /HPF Urine RBC (Auto) NONE SEEN (0-2) /HPF U Epithel Cells (Auto) NONE (FEW) /HPF Urine Bacteria (Auto) NONE SEEN (NEGATIVE) /HPF Urine RBC NEGATIVE (0-5) Jonny/ul Ur Culture Indicated? NO Urine Glucose NEGATIVE (NEGATIVE) mg/dL C. difficile Screen NEGATIVE (NEGATIVE) C.difficile 027-NAP1-B1 PRESUMPTIVE NEGATIVE (NEGATIVE) Influenza Type A Ag NEGATIVE (NEGATIVE) Influenza Type B Ag NEGATIVE (NEGATIVE) RSV (PCR) NEGATIVE (Negative) SARS-CoV-2 (PCR) NEGATIVE (NEGATIVE) 11/25/21 11/25/21 Range/Units 04:20 04:20 WBC 6.4 (4.0-10.5) x10^3/uL RBC 3.08 L (4.1-5.6) x10^6/uL Hgb 10.1 L (12.5-18.0) g/dL Hct 30.8 L (42-50) % MCV 100.0 (78-100) fL MCH 32.8 H (26-32) pg MCHC 32.8 (32-36) g/dL RDW 13.0 (11.5-14.0) % Plt Count 285 (150-450) x10^3/uL MPV 8.7 (7.5-11.0) fL Gran % 58.1 (36.0-66.0) % Immature Gran % (Auto) 0.5 H (0.00-0.4) % Nucleat RBC Rel Count 0.0 (0.00-0.1) % Eos # (Auto) 0.25 (0-0.5) x10^3/uL Immature Gran # (Auto) 0.03 (0.00-0.03) x10^3u/L Absolute Lymphs (auto) 1.77 (1.0-4.6) x10^3/uL Absolute Monos (auto) 0.58 (0.0-1.3) x10^3/uL Absolute Nucleated RBC 0.00 (0.00-0.01) x10^3u/L Lymphocytes % 27.8 (24.0-44.0) % Monocytes % 9.1 (0.0-12.0) % Eosinophils % 3.9 (0.00-5.0) % Basophils % 0.6 (0.0-0.4) % Absolute Granulocytes 3.70 (1.4-6.9) x10^3/uL Basophils # 0.04 (0-0.4) x10^3/uL Sodium 139 (137-145) mmol/L Potassium 4.2 (3.5-5.1) mmol/L Chloride 110 H (98-107) mmol/L Carbon Dioxide 25 (22-30) mmol/L Anion Gap 7.9 (5-15) MEQ/L BUN 13 (9-20) mg/dL Creatinine 0.80 (0.66-1.25) mg/dL Estimated GFR > 60.0 ML/MIN Glucose 85 (74-106) mg/dL Lactic Acid (0.4-2.0) Calcium 8.4 (8.4-10.2) mg/dL Total Bilirubin 0.30 (0.2-1.3) mg/dL AST 43 (17-59) U/L ALT 26 (0-50) U/L Alkaline Phosphatase 64 (38-126) U/L Serum Total Protein 5.6 L (6.3-8.2) g/dL Albumin 3.1 L (3.5-5.0) g/dL Lipase (23-300) U/L Urinalys Dipstick Clnc Urine Color (YELLOW) Urine Appearance (CLEAR) Urine pH (5-6) Ur Specific [place] (1.005-1.025) POC Urine Protein Conf (Negative) Urine Ketones (NEGATIVE) Urine Nitrite (NEGATIVE) Urine Bilirubin (NEGATIVE) Urine Urobilinogen (0-1) mg/dL Urine Leukocytes (NEGATIVE) Urine WBC (Auto) (0-5) /HPF Urine RBC (Auto) (0-2) /HPF U Epithel Cells (Auto) (FEW) /HPF Urine Bacteria (Auto) (NEGATIVE) /HPF Urine RBC (0-5) Jonny/ul Ur Culture Indicated? Urine Glucose (NEGATIVE) mg/dL C. difficile Screen (NEGATIVE) C.difficile 027-NAP1-B1 (NEGATIVE) Influenza Type A Ag (NEGATIVE) Influenza Type B Ag (NEGATIVE) RSV (PCR) (Negative) SARS-CoV-2 (PCR) (NEGATIVE) - Radiology Impressions Radiology Exams & Impressions: Radiology Procedures Category Date Time Status ABDOMEN AND PELVIS W/0 CONTRAS [CT] Stat Exams 11/24/21 13:18 Completed Assessment/Plan (1) Enteritis Current Visit: Yes Status: Acute Assessment & Plan: unsure etiology, but he is responding well to tx, including antibiotics, so will continue current course. C. diff was neg. Try advancing diet slowly. Code(s): K52.9 - NONINFECTIVE GASTROENTERITIS AND COLITIS, UNSPECIFIED (2) Low back pain Current Visit: Yes Status: Acute Qualifiers: Chronicity: acute Back pain laterality: midline Sciatica presence: unspecified whether sciatica present Qualified Code(s): M54.50 - Low back pain, unspecified Assessment & Plan: will try lidoderm patch. Code(s): M54.50 - LOW BACK PAIN, UNSPECIFIED (3) HTN (hypertension) Current Visit: Yes Status: Chronic Qualifiers: Hypertension type: primary hypertension Qualified Code(s): I10 - Essential (primary) hypertension Code(s): I10 - ESSENTIAL (PRIMARY) HYPERTENSION (4) History of colon cancer Current Visit: Yes Status: Chronic Assessment & Plan: 2013 Code(s): Z85.038 - PERSONAL HISTORY OF MALIGNANT NEOPLASM OF LARGE INTESTINE (5) Multiple sclerosis Current Visit: Yes Status: Chronic Code(s): G35 - MULTIPLE SCLEROSIS
[2021-11-25] MEDS: Lidoderm Patch 5% TOP SCH (14:00)
[2021-11-25] MEDS: Acidophilus TABLET PO SCH ×2 (14:05→21:11)
[2021-11-26] MEDS: Hydromorphone 1 mg/ml Injection IV PRN ×2 (03:12→08:22)
[2021-11-26] MEDS: Provigil 100MG Tablet PO SCH (07:19)
[2021-11-26] MEDS: Sodium Chloride 0.9% W/ 20 mEq KCl/LITER 1,000 ML IV SCH ×2 (07:39→10:18)
[2021-11-26 08:12] VITALS: BP 160/99; PULSE 75; O2SAT 95
[2021-11-26] MEDS: ZOCOR 20MG PO SCH (08:57)
[2021-11-26] MEDS: Zestril 20 MG PO SCH (08:57)
[2021-11-26] MEDS: Cymbalta 30 MG Capsule PO SCH (08:57)
[2021-11-26] MEDS: PROTONIX 40 MG IV IV SCH (08:58)
[2021-11-26] MEDS: Acidophilus TABLET PO SCH (08:58)
[2021-11-26] MEDS: NEURONTIN PO SCH (08:58)
[2021-11-26] MEDS: Lidoderm Patch 5% TOP SCH ×2 (08:58→09:00)
--- NOTE | 2021-11-26 09:40 | PCM.DS ---
Discharge Summary Date of Admission: 11/24/21 17:33 Admitting Physician: GABE PARIS DO Primary Care Provider: NELDA CASTRO Allergies Allergies No Known Drug Allergies Allergy (Verified 09/06/19 11:56) Hospital Summary - Hospital Course Hospital Course: patient admitted with diarrhea, abd pain and back pain. he has spent a great deal of time in bed due to his back pain. he is now tolerating regular diet with no diarrhea. will be discharged to home - Vitals & Intake/Output Vital Signs: Vital Signs Temperature 97.9 F 11/26/21 08:00 Pulse Rate 75 11/26/21 08:00 Respiratory Rate 16 11/26/21 08:00 Blood Pressure 160/99 11/26/21 08:00 O2 Sat by Pulse Oximetry 95 11/26/21 08:00 Intake & Output: Intake & Output 11/23/21 11/24/21 11/25/21 11/26/21 11:59 11:59 11:59 11:59 Intake Total 2338 1901 Output Total 900 2150 Balance 1438 -249 Weight 90.9 kg 91.1 kg - Lab Result Diagrams: 11/25/21 04:20 11/25/21 04:20 - Radiology Exams Ordered Rad Exams-Entire Visit: Radiology Procedures Category Date Time Status ABDOMEN AND PELVIS W/0 CONTRAS [CT] Stat Exams 11/24/21 13:18 Completed Discharge Exam General Appearance: no apparent distress, alert Neurologic Exam: alert, oriented x 3 Respiratory Exam: normal breath sounds, lungs clear, No respiratory distress Cardiovascular Exam: regular rate/rhythm, normal heart sounds Gastrointestinal/Abdomen Exam: soft, No tenderness, No mass Skin Exam: normal color, warm, dry Final Diagnosis/Problem List - Final Discharge Diagnosis/Problem (1) Acute gastroenteritis Current Visit: Yes Status: Acute Assessment & Plan: recommend bland diet at home, push fluids Code(s): K52.9 - NONINFECTIVE GASTROENTERITIS AND COLITIS, UNSPECIFIED (2) Low back pain Current Visit: Yes Status: Acute Assessment & Plan: gave norco 5/325 12 tabs for home due to pain in back Code(s): M54.50 - LOW BACK PAIN, UNSPECIFIED - Discharge Disposition: Home, Self-Care Condition: Stable Prescriptions: New Hydrocodone/Acetaminophen [Hydrocodone-Acetamin 5-325 mg] 1 tab PO Q6HPRN PRN #12 tablet MDD 4 PRN Reason: Pain Continue Gabapentin 900 mg PO BID Duloxetine HCl 30 mg PO BID Lisinopril 20 mg [Zestril 20 MG] 20 mg PO DAILY Atorvastatin Calcium [Lipitor] 40 mg PO DAILY Modafinil 100 mg [Provigil 100MG Tablet] 200 mg PO 0700,1300 Meloxicam 15 mg [Meloxicam 15 MG] 15 mg PO BID Follow up with: NELDA CASTRO MD [Primary Care Provider] -
== END 2021-11-26 10:25 | disposition home or self-care (01) ==
LOC: ED 12:20 → MED SURG 17:33
PROVIDERS: ADMIT Family Medicine; ATTEND Family Medicine
DX: K52.9 Noninfective gastroenteritis and colitis, unspecified (principal); M54.50 Low back pain, unspecified; G35 Multiple sclerosis; I10 Essential (primary) hypertension; E78.5 Hyperlipidemia, unspecified; Z85.038 Personal history of other malignant neoplasm of large intestine; Z79.899 Other long term (current) drug therapy; Z20.828 Contact with and (suspected) exposure to other viral communicable diseases
CPT/HCPCS: 0241U; 36415; 74176; 80053; 81015; 83605; 83690; 85025; 87493; 96360; 96374; 96375; 96376; 99285; G0378; J1170; J2270; J2405; A9270-GY

== ENCOUNTER 2022-02-23 21:51 | Emergency (ER) | payer MEDICARE ==
[2022-02-23] MEDS ORDERED: Sodium Chloride 0.9% 1000 ML 1,000 ML ONE ×3 (22:17→23:32)
--- NOTE | 2022-02-23 22:24 | ERPHSYRPT ---
- History of Present Illness Time Seen by Provider: 02/23/22 22:24 Historian: patient Exam Limitations: no limitations Physician History: This is a 51-year-old white male patient of Dr. Castro who complains of 2 days of nausea diarrhea intermittently and bilateral lower quadrant abdominal pain. Prior to the abdominal pain occurring he had constipation but since that time he has had diarrhea. Patient has a history of colorectal cancer. He has a history of hypertension, peripheral neuropathy, multiple sclerosis hyperlipidemia as well as history of spinal cord issues in the distant past which have resolved. Patient denies chest pain. He denies abdominal pain. He is felt nauseated but no vomiting. Timing/Duration: day(s) Activities at Onset: none Quality: aching Abdominal Pain Onset Location: RLQ, LLQ Pain Radiation: no radiation Severity of Pain-Max: moderate Severity of Pain-Current: moderate Modifying Factors: Improves With: nothing Associated Symptoms: diarrhea, nausea, No vomiting Previous symptoms: same symptoms as today (In the distant past) Allergies/Adverse Reactions: No Known Drug Allergies Allergy (Verified 02/23/22 22:28) Home Medications: Duloxetine HCl 30 mg PO BID 03/28/19 [History] Gabapentin 900 mg PO BID 03/28/19 [History] Atorvastatin Calcium [Lipitor] 40 mg PO DAILY 04/14/21 [History] Lisinopril 20 mg [Zestril 20 MG] 20 mg PO DAILY 04/14/21 [History] Meloxicam 15 mg [Meloxicam 15 MG] 15 mg PO BID 11/24/21 [History] Modafinil 100 mg [Provigil 100MG Tablet] 200 mg PO 0700,1300 11/24/21 [History] Hx Tetanus, Diphtheria Vaccination/Date Given: Yes Hx Influenza Vaccination/Date Given: Yes Hx Pneumococcal Vaccination/Date Given: No Travel Risk - International Travel Have you traveled outside of the country in past 3 weeks: No - Coronavirus Screening Are you exhibiting any of the following symptoms?: No Close contact with a COVID-19 positive Pt in past 14-21 Days: No - Vaccine Status Have you recieved a Covid-19 vaccination: Yes Sponge Maker: [place] - Review of Systems Constitutional: No Symptoms Eyes: No Symptoms Ears, Nose, & Throat: No Symptoms Respiratory: No Symptoms Cardiac: No Symptoms Abdominal/Gastrointestinal: Abdominal Pain (Bilateral lower quadrant), Nausea, Diarrhea, No Vomiting, No Constipation Genitourinary Symptoms: No Symptoms Musculoskeletal: No Symptoms Skin: No Symptoms Neurological: No Symptoms Psychological: No Symptoms Endocrine: No Symptoms Hematologic/Lymphatic: No Symptoms Immunological/Allergic: No Symptoms All Other Systems: Reviewed and Negative - Past Medical History Pertinent Past Medical History: Yes Neurological History: Peripheral Neuropathy, Other ENT History: No Pertinent History Cardiac History: High Cholesterol Respiratory History: No Pertinent History Endocrine Medical History: Other Musculoskeletal History: Arthritis, Fractures GI Medical History: Colorectal Cancer History: No Pertinent History Psycho-Social History: No Pertinent History Male Reproductive Disorders: No Pertinent History Other Medical History: MS-Relapse Remitting. 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 Pt notes complete loss of LE motor and sensation as well as bowel and bladder. Pt notes doctors were not able to definitively dx this issue. Pt also notes colon CA in remission curerntly. R MAY 2019 - Past Surgical History Past Surgical History: No Neuro Surgical History: No Pertinent History Cardiac: No Pertinent History Respiratory: No Pertinent History Gastrointestinal: Appendectomy, Colon Resection, Hernia Repair Genitourinary: No Pertinent History Musculoskeletal: Joint Replacement, Orthopedic Surgery Male Surgical History: No Pertinent History Other Surgical History: open repair right femur. right hip replacement - Social History Smoking Status: Former smoker Exposure to second hand smoke: No Drug Use: none Patient Lives Alone: Yes - Nursing Vital Signs Nursing Vital Signs: Initial Vital Signs Temperature 98.1 F 02/23/22 22:13 Pulse Rate 116 H 02/23/22 22:13 Respiratory Rate 22 02/23/22 22:13 Blood Pressure 82/45 02/23/22 22:13 O2 Sat by Pulse Oximetry 97 02/23/22 22:13 Pain Scale Pain Intensity 6 - Physical Exam General Appearance: mild distress, alert, anxiety Eye Exam: PERRL/EOMI, eyes nml inspection Ears, Nose, Throat Exam: normal ENT inspection, moist mucous membranes, tonsillar exudate Neck Exam: normal inspection, non-tender, supple Respiratory Exam: normal breath sounds, lungs clear, airway intact, other, No chest tenderness, No respiratory distress Cardiovascular Exam: normal heart sounds, normal peripheral pulses, tachycardia Gastrointestinal/Abdomen Exam: soft, normal bowel sounds, tenderness (Bilateral lower quadrants), guarding (Bilateral lower quadrants), rebound (Bilateral lower quadrants) Rectal Exam: not done Back Exam: normal inspection, normal range of motion, No CVA tenderness, No vertebral tenderness Extremity Exam: normal inspection Neurologic Exam: alert, oriented x 3, cooperative, manager 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-XII nml as tested, nor mal mood/affect, nml cerebellar function, nml station & gait, sensation nml Skin Exam: normal color, warm, dry Lymphatic Exam: No adenopathy SpO2 Interpretation: normal O2 Delivery: Room Air - Course Nursing assessment & vital signs reviewed: Yes EKG Interpreted by Me: RATE (104), Sinus Tach, NORMAL AXIS, NORMAL INTERVALS, NORMAL QRS, NORMAL ST-T, Other Ordered Tests: Active Orders 24 hr Category Date Time Status EKG-ER Only STAT Care 02/24/22 00:55 Active Godinez [Catheter-[place] Godinez] STAT Care 02/23/22 22:43 Active IV Insertion STAT Care 02/23/22 22:28 Active IV Insertion-2nd Peripheral STAT Care 02/23/22 22:28 Active ABDOMEN AND PELVIS W/0 CONTRAS [CT] Stat Exams 02/23/22 22:44 Taken AMYLASE Stat Lab 02/23/22 22:30 Completed BLOOD CULTURE Stat Lab 02/23/22 22:55 Received BMP Stat Lab 02/24/22 00:23 Ordered CBC W DIFF Stat Lab 02/23/22 22:30 Completed CMP Stat Lab 02/23/22 22:30 Completed LIPASE Stat Lab 02/23/22 22:30 Completed Lactic Acid Stat Lab 02/23/22 22:43 Completed TROPONIN Q4H Lab 02/24/22 01:00 Ordered TROPONIN Q4H Lab 02/24/22 05:00 Ordered TROPONIN Q4H Lab 02/24/22 09:00 Ordered UA W/RFX CULTURE Stat Lab 02/23/22 22:57 Completed Medication Summary Generic Name Dose Route Start Last Admin Trade Name Freq PRN Reason Stop Dose Admin Sodium Chloride 1,000 mls @ 999 mls/hr 02/24/22 00:32 02/24/22 00:38 Sodium Chloride 0.9% 1000 Ml IV 02/24/22 01:32 999 mls/hr .Q1H1M STA Administration Norepinephrine/Dextrose 8 mg in 250 mls @ 15 mls/hr 02/24/22 00:46 02/24/22 01:02 Norepinephrine 8 Mg/250 Ml-D5w IV 03/26/22 00:45 5 mcg/min .[id number] PRN 9.375 mls/hr HYPOTENSION Administration Protocol 8 MCG/MIN Discontinued Medications Generic Name Dose Route Start Last Admin Trade Name Nikki PRN Reason Stop Dose Admin Acetaminophen 650 mg 02/24/22 00:32 02/24/22 00:38 Acetaminophen 325 Mg Tablet PO 02/24/22 00:33 650 mg STAT STA Administration Acetaminophen Confirm 02/24/22 00:36 Acetaminophen 325 Mg Tablet Administered 02/24/22 00:37 Dose 650 mg .ROUTE .STK-MED ONE Sodium Chloride Confirm 02/23/22 22:17 Sodium Chloride 0.9% 1000 Ml Administered 02/23/22 22:18 Dose 1,000 mls @ ud .ROUTE .STK-MED ONE Sodium Chloride 1,000 mls @ 999 mls/hr 02/23/22 22:42 02/23/22 23:31 Sodium Chloride 0.9% 1000 Ml IV 02/23/22 23:42 Infused .Q1H1M STA Infusion Sodium Chloride 1,000 mls @ 999 mls/hr 02/23/22 22:43 02/24/22 00:21 Sodium Chloride 0.9% 1000 Ml IV 02/23/22 23:43 Infused .Q1H1M STA Infusion Sodium Chloride Confirm 02/23/22 22:47 Sodium Chloride 0.9% 1000 Ml Administered 02/23/22 22:48 Dose 1,000 mls @ ud .ROUTE .STK-MED ONE Sodium Chloride 1,000 mls @ 999 mls/hr 02/23/22 23:24 02/23/22 23:35 Sodium Chloride 0.9% 1000 Ml IV 02/24/22 00:24 999 mls/hr .Q1H1M STA Administration Piperacillin Sod/Tazobactam 100 mls @ 200 mls/hr 02/23/22 23:24 02/23/22 23: 35 Sod 3.375 gm/ Sodium Chloride IV 02/23/22 23:53 200 mls/hr STAT ONE Administration Sodium Chloride Confirm 02/23/22 23:32 Sodium Chloride 0.9% 1000 Ml Administered 02/23/22 23:33 Dose 1,000 mls @ ud .ROUTE .STK-MED ONE Sodium Chloride Confirm 02/23/22 23:33 Sodium Chloride 100ml Mini-Bag Plus Administered 02/23/22 23:34 Dose 100 mls @ ud IV .STK-MED ONE Sodium Chloride Confirm 02/24/22 00:36 Sodium Chloride 0.9% 1000 Ml Administered 02/24/22 00:37 Dose 1,000 mls @ ud .ROUTE .STK-MED ONE Lidocaine HCl Confirm 02/23/22 22:32 Lidocaine Hcl 20 Mg/Ml Jelly Uro-Jet Administered 02/23/22 22:33 Dose 200 mg .ROUTE .STK-MED ONE Lidocaine HCl 200 mg 02/23/22 22:42 02/23/22 22:45 Lidocaine Hcl 20 Mg/Ml Jelly Uro-Jet TOP 02/23/22 22:43 200 mg STAT ONE Administration Ondansetron HCl 4 mg 02/23/22 22:43 02/23/22 22:49 Ondansetron Hcl 4 Mg/2 Ml Vial IV 02/23/22 22:44 4 mg STAT ONE Administration Ondansetron HCl Confirm 02/23/22 22:47 Ondansetron Hcl 4 Mg/2 Ml Vial Administered 02/23/22 22:48 Dose 4 mg .ROUTE .STK-MED ONE Piperacillin Sod/Tazobactam Sod Confirm 02/23/22 23:32 Piperacillin/Tazobactam Sodium 3.375 Gm Vial Administered 02/23/22 23:33 Dose 3.375 gm IV .STK-MED ONE Lab/Rad Data: Laboratory Result Diagrams 02/23/22 22:30 02/23/22 22:30 Laboratory Results 02/23/22 02/23/22 02/23/22 Range/Units 22:57 22:43 22:30 WBC (4.0-10.5) x10^3/uL RBC (4.1-5.6) x10^6/uL Hgb (12.5-18.0) g/dL Hct (42-50) % MCV (78-100) fL MCH (26-32) pg MCHC (32-36) g/dL RDW (11.5-14.0) % Plt Count (150-450) x10^3/uL MPV (7.5-11.0) fL Gran % (36.0-66.0) % Immature Gran % (Auto) (0.00-0.4) % Nucleat RBC Rel Count (0.00-0.1) % Eos # (Auto) (0-0.5) x10^3/uL Immature Gran # (Auto) (0.00-0.03) x10^3u/L Absolute Lymphs (auto) (1.0-4.6) x10^3/uL Absolute Monos (auto) (0.0-1.3) x10^3/uL Absolute Nucleated RBC (0.00-0.01) x10^3u/L Lymphocytes % (24.0-44.0) % Monocytes % (0.0-12.0) % Eosinophils % (0.00-5.0) % Basophils % (0.0-0.4) % Absolute Granulocytes (1.4-6.9) x10^3/uL Basophils # (0-0.4) x10^3/uL Sodium 132 L (137-145) mmol/L Potassium 3.8 (3.5-5.1) mmol/L Chloride 95 L (98-107) mmol/L Carbon Dioxide 18 L (22-30) mmol/L Anion Gap 23.2 H (5-15) MEQ/L BUN 55 H (9-20) mg/dL Creatinine 6.82 H (0.66-1.25) mg/dL Estimated GFR 9.1 ML/MIN Glucose 124 H (74-106) mg/dL Lactic Acid 1.7 (0.4-2.0) Calcium 9.6 (8.4-10.2) mg/dL Total Bilirubin 0.90 (0.2-1.3) mg/dL AST 81 H (17-59) U/L ALT 40 (0-50) U/L Alkaline Phosphatase 96 (38-126) U/L Serum Total Protein 8.4 H (6.3-8.2) g/dL Albumin 5.0 (3.5-5.0) g/dL Amylase 97 (30-110) U/L Lipase 60 (23-300) U/L Urinalys Dipstick Clnc MAIN LAB Urine Color JOSEPH (YELLOW) Urine Appearance SLIGHTLY CLOUDY (CLEAR) Urine pH 5.0 (5-6) Ur Specific [place] >=1.030 (1.005-1.025) POC Urine Protein Conf 30 (Negative) Urine Ketones TRACE (NEGATIVE) Urine Nitrite NEGATIVE (NEGATIVE) Urine Bilirubin SMALL (NEGATIVE) Urine Urobilinogen 0.2 (0-1) mg/dL Urine Leukocytes NEGATIVE (NEGATIVE) Urine WBC (Auto) 6-10 (0-5) /HPF Urine RBC (Auto) 6-10 (0-2) /HPF U Epithel Cells (Auto) NONE (FEW) /HPF Urine Bacteria (Auto) NONE (NEGATIVE) /HPF Urine RBC TRACE NON-HEM (0-5) Jonny/ul Unidentified Crystals 2-5 (NEGATIVE) /HPF Urine Mucus (Auto) SLIGHT (NEGATIVE) /HPF Urine Sperm (Auto) PRESENT (NEGATIVE) /HPF Ur Culture Indicated? NO Urine Glucose NEGATIVE (NEGATIVE) mg/dL Slides for Path Review 02/23/22 Range/Units 22:30 WBC 18.4 H (4.0-10.5) x10^3/uL RBC 3.70 L (4.1-5.6) x10^6/uL Hgb 12.2 L (12.5-18.0) g/dL Hct 36.5 L (42-50) % MCV 98.6 (78-100) fL MCH 33.0 H (26-32) pg MCHC 33.4 (32-36) g/dL RDW 13.8 (11.5-14.0) % Plt Count 392 (150-450) x10^3/uL MPV 9.1 (7.5-11.0) fL Gran % 78.5 H (36.0-66.0) % Immature Gran % (Auto) 0.7 H (0.00-0.4) % Nucleat RBC Rel Count 0.0 (0.00-0.1) % Eos # (Auto) 0.03 (0-0.5) x10^3/uL Immature Gran # (Auto) 0.12 H (0.00-0.03) x10^3u/L Absolute Lymphs (auto) 2.02 (1.0-4.6) x10^3/uL Absolute Monos (auto) 1.72 H (0.0-1.3) x10^3/uL Absolute Nucleated RBC 0.00 (0.00-0.01) x10^3u/L Lymphocytes % 11.0 L (24.0-44.0) % Monocytes % 9.3 (0.0-12.0) % Eosinophils % 0.2 (0.00-5.0) % Basophils % 0.3 (0.0-0.4) % Absolute Granulocytes 14.47 H (1.4-6.9) x10^3/uL Basophils # 0.05 (0-0.4) x10^3/uL Sodium (137-145) mmol/L Potassium (3.5-5.1) mmol/L Chloride (98-107) mmol/L Carbon Dioxide (22-30) mmol/L Anion Gap (5-15) MEQ/L BUN (9-20) mg/dL Creatinine (0.66-1.25) mg/dL Estimated GFR ML/MIN Glucose (74-106) mg/dL Lactic Acid (0.4-2.0) Calcium (8.4-10.2) mg/dL Total Bilirubin (0.2-1.3) mg/dL AST (17-59) U/L ALT (0-50) U/L Alkaline Phosphatase (38-126) U/L Serum Total Protein (6.3-8.2) g/dL Albumin (3.5-5.0) g/dL Amylase (30-110) U/L Lipase (23-300) U/L Urinalys Dipstick Clnc Urine Color (YELLOW) Urine Appearance (CLEAR) Urine pH (5-6) Ur Specific [place] (1.005-1.025) POC Urine Protein Conf (Negative) Urine Ketones (NEGATIVE) Urine Nitrite (NEGATIVE) Urine Bilirubin (NEGATIVE) Urine Urobilinogen (0-1) mg/dL Urine Leukocytes (NEGATIVE) Urine WBC (Auto) (0-5) /HPF Urine RBC (Auto) (0-2) /HPF U Epithel Cells (Auto) (FEW) /HPF Urine Bacteria (Auto) (NEGATIVE) /HPF Urine RBC (0-5) Jonny/ul Unidentified Crystals (NEGATIVE) /HPF Urine Mucus (Auto) (NEGATIVE) /HPF Urine Sperm (Auto) (NEGATIVE) /HPF Ur Culture Indicated? Urine Glucose (NEGATIVE) mg/dL Slides for Path Review YES - Progress Progress: unchanged Progress Note: 02/24/22 01:07 CAT scan of the abdomen pelvis shows sigmoid colitis. There is no evidence of free air or intra-abdominal fluid. Medical decision making: This patient has sepsis and and colitis. There is evidence of dehydration. Patient has leukocytosis and hypotension. I reviewed the patient history and the results of the patient's lab work-up and CAT scan of the abdomen pelvis with Dr. Almaraz. Patient was started on low-dose Levophed. No other recommendations were given by Dr. Almaraz who I am transferring care of this patient to at [facility] in [facility]. Counseled pt/family regarding: lab results, diagnosis, need for follow-up, rad results - Departure Departure Disposition: Transfer Clinical Impression: Sepsis, Hypotension, Colitis, Dehydration, Tachycardia, Leukocytosis, Acute renal failure Condition: Serious Critical Care Time: Yes Critical Care Time(excluding separately billable procedures): Critical 30-74 mins (45 minutes) Referrals: NELDA CASTRO MD [Primary Care Provider] - Follow up/PCP as directed
[2022-02-23] MEDS ORDERED: XYLOCAINE 2% Uro-Jet ONE (22:32)
[2022-02-23] MEDS ORDERED: XYLOCAINE 2% Uro-Jet TOP ONE (22:42)
[2022-02-23] MEDS ORDERED: Sodium Chloride 0.9% 1000 ML 1,000 ML IV STA ×3 (22:42→23:24)
[2022-02-23] MEDS ORDERED: Zofran 4 MG/2 ML VIAL IV ONE (22:43)
[2022-02-23] MEDS ORDERED: Zofran 4 MG/2 ML VIAL ONE (22:47)
[2022-02-23 22:50] LABS: Absolute Neutrophil Ct (ANC) 14.47 x10^3/uL (1.4-6.9); Basophil (Absolute #) 0.05 x10^3/uL (0-0.4); Eosinophil % 0.2 % (0.00-5.0); Eosinophil (Absolute #) 0.03 x10^3/uL (0-0.5); Hematocrit 36.5 % (42-50); Hemoglobin 12.2 g/dL (12.5-18.0); Lymphocyte (Absolute #) 2.02 x10^3/uL (1.0-4.6); Mean Cell Volume 98.6 fL (78-100); Mean Corpuscular Hgb Concent. 33.4 g/dL (32-36); Mean Platelet Volume 9.1 fL (7.5-11.0); Monocyte (Absolute #) 1.72 x10^3/uL (0.0-1.3); Monocytes % 9.3 % (0.0-12.0); Neutrophil % 78.5 % (36.0-66.0); Platelet Count 392 x10^3/uL (150-450); Red Cell Distribution Width 13.8 % (11.5-14.0); White Blood Count 18.4 x10^3/uL (4.0-10.5)
[2022-02-23 23:00] LABS: ANION GAP 23.2 MEQ/L (5-15); BILIRUBIN,TOTAL 0.9 mg/dL (0.2-1.3); Calcium 9.6 mg/dL (8.4-10.2); Creatinine 1 6.82 mg/dL (0.66-1.25); EST GLOMERULAR FILTRATION RATE 9.1 ML/MIN; Potassium 3.8 mmol/L (3.5-5.1); Total Protein 8.4 g/dL (6.3-8.2)
[2022-02-23 23:07] LABS: Appearance SLIGHTLY CLOUDY (CLEAR); Bilirubin SMALL (NEGATIVE); Dipstick done @ ? MAIN LAB; Glucose NEGATIVE (NEGATIVE); Ketones TRACE (NEGATIVE); Nitrite NEGATIVE (NEGATIVE); Protein,Urine Dip 30 (Negative); RBC TRACE NON-HEM Ery/ul (0-5); Specific Gravity >=1.030 (1.005-1.025); Urobilinogen 0.2 mg/dL (0-1)
[2022-02-23 23:14] LABS: Mucus SLIGHT /HPF (NEGATIVE); Sperm PRESENT /HPF (NEGATIVE)
[2022-02-23 23:16] LABS: Urine Cultured Indicated? NO
[2022-02-23] MEDS ORDERED: PIPERACILLIN/TAZOBACTAM 3.375 GM in Sodium Chloride 100ML MINI-BAG PLUS 100 ML IV ONE (23:24)
[2022-02-23] MEDS ORDERED: PIPERACILLIN/TAZOBACTAM IV ONE (23:32)
[2022-02-23] MEDS ORDERED: Sodium Chloride 100ML MINI-BAG PLUS 100 ML IV ONE (23:33)
[2022-02-24] MEDS ORDERED: Sodium Chloride 0.9% 1000 ML 1,000 ML IV STA (00:32)
[2022-02-24] MEDS ORDERED: TYLENOL 325 MG PO STA (00:32)
[2022-02-24] MEDS ORDERED: Sodium Chloride 0.9% 1000 ML 1,000 ML ONE (00:36)
[2022-02-24] MEDS ORDERED: TYLENOL 325 MG ONE (00:36)
[2022-02-24] MEDS ORDERED: NOREPINEPHRINE 8 MG/250 ML-D5W 8 MG/250 ML PLAST..BAG IV PRN (00:46)
[2022-02-24] MEDS ORDERED: NOREPINEPHRINE 8 MG/250 ML-D5W 8 MG/250 ML PLAST..BAG IV ONE (00:55)
[2022-02-24 00:58] LABS: Slide Review 1 YES
[2022-02-24 00:59] LABS: ANION GAP 16.5 MEQ/L (5-15); Creatinine 1 5.99 mg/dL (0.66-1.25); EST GLOMERULAR FILTRATION RATE 10.6 ML/MIN; Potassium 3.7 mmol/L (3.5-5.1)
[2022-02-24 01:08] LABS: Calcium 7.7 mg/dL (8.4-10.2)
[2022-02-24 01:17] LABS: INFLUENZA A NEGATIVE (NEGATIVE); INFLUENZA B NEGATIVE (NEGATIVE); RESPIRATORY SYNCTIAL VIRUS NEGATIVE (Negative); SARS-CoV-2 Xpert Express NEGATIVE (NEGATIVE)
[2022-02-24 01:33] VITALS: O2SAT 100
[2022-02-24 02:09] VITALS: BP 74/39; PULSE 108
--- NOTE | 2022-02-24 09:09 | XRAY ---
Indication: Right lower quadrant pain, weakness, and nausea. Multiple contiguous axial images obtained through the abdomen and pelvis without contrast. Comparison: November 24, 2021 Lung bases remain clear. Heart not enlarged. Noncontrasted stomach and bowel loops nonobstructed. Again appendix not visualized. There is now moderate fecal debris predominantly in the ascending and transverse colon. Intact sigmoid anastomosis. Urinary bladder is empty with new Godinez balloon catheter. No free fluid/air. Again nonobstructing left renal micro-calculus. Remaining liver, gallbladder, pancreas, spleen, adrenal glands, kidneys, and ureters appear unremarkable for noncontrast exam. Again minimal scattered aortoiliac calcifications without AAA. Osseous structures intact again with mild degenerative changes throughout the spine, mild levoscoliosis, and right total hip arthroplasty. Impression: 1. New right hemicolon fecal stasis. 2. Chronic findings including nonobstructed left renal micro-calculus, arteriosclerotic disease, and chronic bony findings. Comment: Preliminary interpretation made by [facility] who reports sigmoid colitis which I do not appreciate.
== END 2022-02-24 02:02 | disposition short-term general hospital (02) ==
LOC: ED 21:51
DX: A41.9 Sepsis, unspecified organism (principal); K52.9 Noninfective gastroenteritis and colitis, unspecified; R65.20 Severe sepsis without septic shock; N17.9 Acute kidney failure, unspecified; I95.9 Hypotension, unspecified; E86.0 Dehydration; R00.0 Tachycardia, unspecified; D72.829 Elevated white blood cell count, unspecified; R11.0 Nausea; R10.31 Right lower quadrant pain; R10.32 Left lower quadrant pain; I10 Essential (primary) hypertension; E78.5 Hyperlipidemia, unspecified; Z79.899 Other long term (current) drug therapy
CPT/HCPCS: 0241U; 36000; 36415; 51702; 74176; 80048; 80053; 81015; 82150; 83605; 83690; 84484; 85025; 87040; 93005; 96360; 96361; 96365; 96374; 99285; 99291; J2405; A9270-GY

== ENCOUNTER 2022-04-20 15:45 | Emergency (ER) | payer MEDICARE ==
--- NOTE | 2022-04-20 15:49 | ERPHSYRPT ---
- History of Present Illness Time Seen by Provider: 04/20/22 15:49 Source: patient Exam Limitations: no limitations Physician History: This is a 51-year-old white male patient of Dr. Castro who has frequent headaches. This last headache has been present for over a week. Patient has had prescriptions in the past for hydrocodone. He is out of his hydrocodone. Patient does not have a neurologist. He has no pain specialist that he sees. Patient states that he has been diagnosed with "brain lesions" and might have multiple sclerosis. Patient denies any head trauma recently. Patient also has a history of hypertension, hyperlipidemia and gastroesophageal reflux disease. Timing/Duration: week(s) (Over 1 week) Quality: throbbing Head Pain Location: global Severity of Pain-Max: moderate Severity of Pain-Current: moderate Recent Head Trauma: frequent headaches, chronic headaches Modifying Factors: Improves With: movement. Worsens With: exposure to light, noise Associated Symptoms: nausea/vomiting, No light-headedness, No loss of consciousness, No neck pain, No numbness in legs/feet, No sensitive to light Previous symptoms: same symptoms as today, no recent treatment Allergies/Adverse Reactions: No Known Drug Allergies Allergy (Verified 04/20/22 15:57) Home Medications: Duloxetine HCl 30 mg PO BID 03/28/19 [History] Atorvastatin Calcium [Lipitor] 40 mg PO DAILY 04/14/21 [History] Lisinopril 20 mg [Zestril 20 MG] 40 mg PO DAILY 04/14/21 [History] Dextroamphetamine/Amphetamine [Adderall Xr 30 mg Capsule] 1 ea DAILY 04/20/22 [History] Pantoprazole Sodium [Protonix] 40 mg PO DAILY 04/20/22 [History] Prazosin HCl [Minipress] 20 mg PO DAILY 04/20/22 [History] Tamsulosin HCl 0.4 mg [Flomax 0.4 MG] 0.4 mg PO DAILY 04/20/22 [History] Hx Tetanus, Diphtheria Vaccination/Date Given: Yes Hx Influenza Vaccination/Date Given: Yes Hx Pneumococcal Vaccination/Date Given: No Travel Risk - International Travel Have you traveled outside of the country in past 3 weeks: No - Coronavirus Screening Are you exhibiting any of the following symptoms?: No Close contact with a COVID-19 positive Pt in past 14-21 Days: No - Vaccine Status Have you recieved a Covid-19 vaccination: Yes 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: [place] - Review of Systems Constitutional: No Symptoms Eyes: No Symptoms Ears, Nose, & Throat: No Symptoms Respiratory: No Symptoms Cardiac: No Symptoms Abdominal/Gastrointestinal: No Symptoms Genitourinary Symptoms: No Symptoms Musculoskeletal: No Symptoms Skin: No Symptoms Neurological: Headache Psychological: No Symptoms Endocrine: No Symptoms Hematologic/Lymphatic: No Symptoms Immunological/Allergic: No Symptoms All Other Systems: Reviewed and Negative - Past Medical History Pertinent Past Medical History: Yes Neurological History: Peripheral Neuropathy, Other ENT History: No Pertinent History Cardiac History: High Cholesterol Respiratory History: No Pertinent History Endocrine Medical History: Other Musculoskeletal History: Arthritis, Fractures GI Medical History: Colorectal Cancer History: No Pertinent History Psycho-Social History: No Pertinent History Male Reproductive Disorders: No Pertinent History Other Medical History: MS-Relapse Remitting. 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 Pt notes complete loss of LE motor and sensation as well as bowel and bladder. Pt notes doctors were not able to definitively dx this issue. Pt also notes colon CA in remission curerntly. R MAY 2019 - Past Surgical History Past Surgical History: No Neuro Surgical History: No Pertinent History Cardiac: No Pertinent History Respiratory: No Pertinent History Gastrointestinal: Appendectomy, Colon Resection, Hernia Repair Genitourinary: No Pertinent History Musculoskeletal: Joint Replacement, Orthopedic Surgery Male Surgical History: No Pertinent History Other Surgical History: open repair right femur. right hip replacement - Social History Smoking Status: Former smoker Exposure to second hand smoke: No Drug Use: none Patient Lives Alone: Yes - Nursing Vital Signs Nursing Vital Signs: Initial Vital Signs Temperature 97.2 F 04/20/22 15:52 Pulse Rate 86 04/20/22 15:52 Respiratory Rate 18 04/20/22 15:52 Blood Pressure 138/93 04/20/22 15:52 O2 Sat by Pulse Oximetry 99 04/20/22 15:52 Pain Scale Pain Intensity 7 - Physical Exam General Appearance: no apparent distress, alert, anxiety Eye Exam: PERRL/EOMI, eyes nml inspection Ears, Nose, Throat Exam: normal ENT inspection, moist mucous membranes Neck Exam: normal inspection, non-tender, supple, full range of motion Respiratory Exam: airway intact, No chest tenderness, No respiratory distress Gastrointestinal/Abdominal Exam: No tenderness Back Exam: normal inspection, normal range of motion, No CVA tenderness, No vertebral tenderness Extremity Exam: normal inspection, normal range of motion, pelvis stable Mental Status Exam: alert, oriented x 3, 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 Blood Culture(s) Obtained: No Antibiotics given: No Counseled pt/family regarding: diagnosis, need for follow-up, rad results - Departure Departure Disposition: Home Clinical Impression: Recurrent headache Condition: Stable Critical Care Time: No Referrals: NELDA CASTRO MD [Primary Care Provider] - Follow up/PCP as directed Additional Instructions: Call your primary care doctor's office tomorrow to make arranges for a follow-up appointment for further evaluation and management and for referral to a neurologist and pain specialist for chronic pain control
--- NOTE | 2022-04-20 16:40 | XRAY ---
Indication: Headache, blurred vision, nausea. Multiple contiguous axial images obtained through the head without contrast. Comparison: None Normal appearing brain parenchyma, ventricles, and bony calvarium for patient's age. Visualized paranasal sinuses and mastoid air cells are clear. Impression: Normal CT head without contrast exam.
[2022-04-20] MEDS ORDERED: Hydromorphone 1 mg/ml Injection IM ONE (16:59)
[2022-04-20] MEDS ORDERED: Compazine 10 MG/2 ML IM ONE (17:00)
[2022-04-20] MEDS ORDERED: TORAdol 30 mg Injection IM ONE (17:00)
[2022-04-20] MEDS ORDERED: Compazine 10 MG/2 ML ONE (17:08)
[2022-04-20] MEDS ORDERED: TORAdol 30 mg Injection ONE (17:08)
[2022-04-20] MEDS ORDERED: Hydromorphone 1 mg/ml Injection ONE (17:08)
[2022-04-20 18:12] VITALS: BP 129/85; PULSE 90; O2SAT 97
== END 2022-04-20 18:12 | disposition home or self-care (01) ==
LOC: ED 15:45
DX: R51.9 Headache, unspecified (principal); I10 Essential (primary) hypertension; E78.5 Hyperlipidemia, unspecified; G35 Multiple sclerosis; Z79.899 Other long term (current) drug therapy
CPT/HCPCS: 70450; 96372; 99283; J1170; J1885

== ENCOUNTER 2022-08-25 13:38 | Emergency (ER) | payer MEDICARE ==
--- NOTE | 2022-08-25 14:04 | ERPHSYRPT ---
- History of Present Illness Time Seen by Provider: 08/25/22 14:04 Source: patient Exam Limitations: no limitations Physician History: This a 52-year-old white male who has history of recurrent migraine headaches. This episode of headache is severe and it has been lasting 5 days. Patient states he has seen her neurologist and they have adjusted the medication without any benefit per his report. He stated that Dr. Castro has him on Imitrex and [place] and that does not seem to be touching this pain. Patient did not suffer any head injury. Patient states that noise and bright lights bother him during the current episode Head Pain Location: global Severity of Pain-Max: moderate Severity of Pain-Current: moderate Recent Head Trauma: no recent headache/trauma, frequent headaches Modifying Factors: Improves With: exposure to light, movement, noise Associated Symptoms: No facial pain, No neck pain, No seizures, No stiff neck Previous symptoms: same symptoms as today, no recent treatment Allergies/Adverse Reactions: No Known Drug Allergies Allergy (Verified 08/25/22 14:04) Home Medications: Duloxetine HCl 30 mg PO BID 03/28/19 [History] Atorvastatin Calcium [Lipitor] 40 mg PO DAILY 04/14/21 [History] Lisinopril 20 mg [Zestril 20 MG] 40 mg PO DAILY 04/14/21 [History] Dextroamphetamine/Amphetamine [Adderall Xr 30 mg Capsule] 1 ea PO DAILY 04/20/22 [History] Pantoprazole Sodium [Protonix] 40 mg PO DAILY 04/20/22 [History] Tamsulosin HCl 0.4 mg [Flomax 0.4 MG] 0.4 mg PO DAILY 04/20/22 [History] Hydrocodone/Acetaminophen [Hydrocodone-Acetamin 5-325 mg] 1 tab PO Q6HPRN PRN MDD 4 08/25/22 [History] Sumatriptan Succinate [Imitrex] 100 mg PO DAILY PRN 08/25/22 [History] Hx Tetanus, Diphtheria Vaccination/Date Given: Yes Hx Influenza Vaccination/Date Given: Yes Hx Pneumococcal Vaccination/Date Given: No Travel Risk - International Travel Have you traveled outside of the country in past 3 weeks: No - Coronavirus Screening Are you exhibiting any of the following symptoms?: No Close contact with a COVID-19 positive Pt in past 14-21 Days: No - Vaccine Status Have you recieved a Covid-19 vaccination: Yes [employer]: [place] - Review of Systems Constitutional: No Symptoms Eyes: No Symptoms Ears, Nose, & Throat: No Symptoms Respiratory: No Symptoms Cardiac: No Symptoms Abdominal/Gastrointestinal: No Symptoms Genitourinary Symptoms: No Symptoms Musculoskeletal: No Symptoms Skin: No Symptoms Neurological: Headache Psychological: No Symptoms Endocrine: No Symptoms Hematologic/Lymphatic: No Symptoms Immunological/Allergic: No Symptoms All Other Systems: Reviewed and Negative - Past Medical History Pertinent Past Medical History: Yes Neurological History: Peripheral Neuropathy, Other ENT History: No Pertinent History Cardiac History: High Cholesterol Respiratory History: No Pertinent History Endocrine Medical History: Other Musculoskeletal History: Arthritis, Fractures GI Medical History: Colorectal Cancer History: No Pertinent History Psycho-Social History: No Pertinent History Male Reproductive Disorders: No Pertinent History Other Medical History: MS-Relapse Remitting. 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 Pt notes complete loss of LE motor and sensation as well as bowel and bladder. Pt notes doctors were not able to definitively dx this issue. Pt also notes colon CA in remission curerntly. R MAY 2019 - Past Surgical History Past Surgical History: No Neuro Surgical History: No Pertinent History Cardiac: No Pertinent History Respiratory: No Pertinent History Gastrointestinal: Appendectomy, Colon Resection, Hernia Repair Genitourinary: No Pertinent History Musculoskeletal: Joint Replacement, Orthopedic Surgery Male Surgical History: No Pertinent History Other Surgical History: open repair right femur. right hip replacement - Social History Smoking Status: Former smoker Exposure to second hand smoke: No Drug Use: none Patient Lives Alone: Yes - Nursing Vital Signs Nursing Vital Signs: Initial Vital Signs Temperature 97.7 F 08/25/22 14:10 Pulse Rate 89 08/25/22 14:10 Respiratory Rate 18 08/25/22 14:10 Blood Pressure 170/100 08/25/22 14:10 O2 Sat by Pulse Oximetry 97 08/25/22 14:10 Pain Scale Pain Intensity 9 - Physical Exam General Appearance: no apparent distress, alert, anxiety Eye Exam: PERRL/EOMI, eyes nml inspection Ears, Nose, Throat Exam: normal ENT inspection, moist mucous membranes Neck Exam: normal inspection, non-tender, supple, full range of motion Respiratory Exam: airway intact, No chest tenderness, No respiratory distress Gastrointestinal/Abdominal Exam: No tenderness Back Exam: normal inspection, normal range of motion, No CVA tenderness, No vertebral tenderness Extremity Exam: normal inspection, normal range of motion, pelvis stable Mental Status Exam: alert, oriented x 3, 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 Exam: normal hearing, normal speech, PERRL, tongue midline Coordination/Gait Exam: normal finger to nose, normal gait, normal cerebellar function Motor/Sensory Exam: no motor deficit, no sensory deficit, no pronator drift Skin Exam: normal color, warm, dry Lymphatic Exam: No adenopathy SpO2 Interpretation: normal O2 Delivery: Room Air - Course Nursing assessment & vital signs reviewed: Yes Ordered Tests: Active Orders 24 hr Category Date Time Status HEAD WITHOUT CONTRAST [CT] Stat Exams 08/25/22 14:26 Completed - Progress Progress: improved, re-examined Air Movement: good Progress Note: 08/25/22 15:27 CT scan of the head without contrast shows a normal study without any evidence of intracranial abnormality. This patient has a medical issue that is of low to moderate complexity. Patient has chronic recurring migraine headaches. The work-up was based on review of the patient's past medical history, physical findings on examination. CAT scan of the head without contrast was performed. The results of the study shows no evidence of any intracranial abnormality. We will provide the patient with injections for controlling his acute headache. He is to continue his other medications as an outpatient and follow-up with his primary care provider and neurologist for further evaluation and management Blood Culture(s) Obtained: No Antibiotics given: No Counseled pt/family regarding: diagnosis, need for follow-up, rad results Medical Desision Making - Discussion of managment Reviewed:: Test results Agreed on:: Treatment plan, need for follow-up - Diagnostic Testing Diagnostic test were ordered, analyzed, and reviewed by me: Yes Radiological Interpretation: Reviewed by me, Teleradiologist Report - Risk of complications Low Risk: Low risk of morbidity from additional dx testing or treatment The pt has a mod risk of morbidity or mortality based on: Need for prescription drug management (As an outpatient to be controlled by his outpatient physicians) - Departure Departure Disposition: Home Clinical Impression: Migraine headache Condition: Stable Critical Care Time: No Referrals: NELDA CASTRO MD [Primary Care Provider] - Follow up/PCP as directed Additional Instructions: Follow-up with your prescribing provider and neurologist later today or tomorrow morning for further evaluation and management including management of your pain.
--- NOTE | 2022-08-25 15:17 | XRAY ---
Indication: Headache. Multiple contiguous axial images obtained through the head without contrast. Comparison: April 20, 2022 Normal appearing brain parenchyma, ventricles, and bony calvarium. Visualized paranasal sinuses and mastoid air cells are clear. Impression: Continued normal CT head without contrast exam.
[2022-08-25] MEDS ORDERED: Hydromorphone 1 mg/ml Injection IM ONE (15:31)
[2022-08-25] MEDS ORDERED: BENADRYL 50 MG/ML IM ONE (15:31)
[2022-08-25] MEDS ORDERED: TORAdol 30 mg Injection IM ONE (15:31)
[2022-08-25 15:32] VITALS: PULSE 88
[2022-08-25] MEDS ORDERED: ZOFRAN ODT 4 MG PO ONE (15:32)
[2022-08-25] MEDS ORDERED: Hydromorphone 1 mg/ml Injection ONE (15:34)
[2022-08-25] MEDS ORDERED: BENADRYL 50 MG/ML ONE (15:34)
[2022-08-25] MEDS ORDERED: ZOFRAN ODT 4 MG ONE (15:35)
[2022-08-25] MEDS ORDERED: TORAdol 30 mg Injection ONE (15:35)
[2022-08-25 16:03] VITALS: BP 135/89; O2SAT 97
== END 2022-08-25 16:11 | disposition home or self-care (01) ==
LOC: ED 13:38
DX: G43.909 Migraine, unspecified, not intractable, without status migrainosus (principal); E78.5 Hyperlipidemia, unspecified; G35 Multiple sclerosis; Z79.891 Long term (current) use of opiate analgesic; Z79.899 Other long term (current) drug therapy
CPT/HCPCS: 70450; 96372; 99284; J1170; J1200; J1885; Q0162

== ENCOUNTER 2022-12-09 15:27 | Day surgery (SDC) | payer MEDICARE ==
[2022-12-09] MEDS ORDERED: LIDOCAINE HCL 1% 50 MG/5 ML VL PF IJ ONE (15:28)
[2022-12-09] MEDS ORDERED: BUPIVACAINE 0.5% VIAL IJ ONE (15:28)
[2022-12-09] MEDS ORDERED: Depo-Medrol 40 MG/ML IM ONE (15:28)
--- NOTE | 2022-12-09 19:00 | XRAY ---
Indication: Left knee injection. Intraoperative fluoroscopy provided for 6 seconds. Single digital spot image submitted for interpretation demonstrates needle tip projecting over the left femur intercondylar notch. Small amount of contrast injected for needle tip placement. Correlate with intraoperative findings/report.
--- NOTE | 2022-12-10 09:48 | XRAY ---
6 seconds of fluoroscopy was used in surgery for a left intra-articular knee injection.
== END 2022-12-09 18:08 | disposition home or self-care (01) ==
LOC: SDC-PAIN 15:27
PROVIDERS: ATTEND Psychiatry & Neurology Pain Medicine
DX: M17.12 Unilateral primary osteoarthritis, left knee (principal); Z79.899 Other long term (current) drug therapy
CPT/HCPCS: 20610; 73560; 77002; J1030; J2001; Q9966

== ENCOUNTER 2023-10-18 16:41 | Emergency (ER) | payer MEDICARE ==
[2023-10-18 17:04] VITALS: RESP 18; TEMP 97.9
[2023-10-18] MEDS ORDERED: BENADRYL 50 MG/ML ONE (17:37)
[2023-10-18] MEDS ORDERED: Sodium Chloride 0.9% 1000 ML 1,000 ML ONE (17:38)
[2023-10-18] MEDS ORDERED: Hydromorphone 1 mg/ml Injection ONE (17:38)
[2023-10-18] MEDS ORDERED: Compazine 10 MG/2 ML ONE (17:38)
[2023-10-18] MEDS: BENADRYL 50 MG/ML IM ONE (17:41)
[2023-10-18] MEDS: Compazine 10 MG/2 ML IM ONE (17:42)
[2023-10-18] MEDS: Hydromorphone 1 mg/ml Injection IM ONE (17:43)
[2023-10-18] MEDS: Sodium Chloride 0.9% 1000 ML 1,000 ML IV STA (17:45)
--- NOTE | 2023-10-18 18:18 | ERPHSYRPT ---
- History of Present Illness Time Seen by Provider: 10/18/23 17:00 Source: patient Exam Limitations: no limitations Patient Subjective Stated Complaint: Headache for the last 4 days. Triage Nursing Assessment: Patient reports to ER with complaints of severe headache and neck pain x 4 days. Patient reports he has a history of migraines and that he has taken imitrex and tylenol at home daily the last 3 days which were ineffective. Patient is lying down in bed and requesting the lights be out due to light sensitivity. Patient also reports dizziness, nausea, and feeling off balance. Patient vitals wnl and is a&o x 3. PERRL, no facial droop, hand bankruptcy assistant equal. Physician History: Patient is a 53-year-old white male who has a history of migraine headaches for which he takes Imitrex and Tylenol. He has had this headache however for 4 days and there is no relief with the Imitrex and Tylenol he is also had nausea and vomiting he has severe photophobia he denies any fever chills or sweats. Timing/Duration: day(s) (4) Quality: throbbing Head Pain Location: global Severity of Pain-Max: severe Severity of Pain-Current: mild Modifying Factors: Improves With: exposure to light, noise Associated Symptoms: sensitive to light Previous symptoms: same symptoms as today Allergies/Adverse Reactions: No Known Drug Allergies Allergy (Verified 10/18/23 16:46) Home Medications: Atorvastatin Calcium [Lipitor] 40 mg PO DAILY 04/14/21 [History] Tamsulosin HCl 0.4 mg [Flomax 0.4 MG] 0.4 mg PO DAILY 04/20/22 [History] Sumatriptan Succinate [Imitrex] 100 mg PO DAILY PRN 08/25/22 [History] Amlodipine Besylate 5 mg [Norvasc 5 mg] 5 mg PO BID 10/18/23 [History] Modafinil 100 mg [Provigil 100MG Tablet] 200 mg PO BID 10/18/23 [History] Venlafaxine HCl [Venlafaxine HCl ER] 300 mg PO HS 10/18/23 [History] Hx Tetanus, Diphtheria Vaccination/Date Given: Yes Hx Influenza Vaccination/Date Given: Yes Hx Pneumococcal Vaccination/Date Given: No Immunizations Up to Date: Yes Travel Risk - International Travel Have you traveled outside of the country in past 3 weeks: No - Emerging Infectious Disease Are you exhibiting symptoms associated with any current EIDs: No - Review of Systems Constitutional: No Fever, No Chills Eyes: Photophobia Ears, Nose, & Throat: No Symptoms Respiratory: No Cough, No Dyspnea Cardiac: No Chest Pain, No Edema, No Syncope Abdominal/Gastrointestinal: Nausea, Vomiting, No Abdominal Pain, No Diarrhea Genitourinary Symptoms: No Dysuria Musculoskeletal: No Back Pain, No Neck Pain Skin: No Rash Neurological: Headache, No Dizziness, No Focal Weakness, No Sensory Changes Psychological: No Symptoms Endocrine: No Symptoms All Other Systems: Reviewed and Negative - Past Medical History Pertinent Past Medical History: Yes Neurological History: Migraines ENT History: No Pertinent History Cardiac History: High Cholesterol, Hypertension Respiratory History: No Pertinent History Endocrine Medical History: No Pertinent History Musculoskeletal History: Arthritis, Fractures GI Medical History: Colorectal Cancer History: No Pertinent History Psycho-Social History: Depression Male Reproductive Disorders: No Pertinent History Other Medical History: MS, 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 - Past Surgical History Past Surgical History: Yes Neuro Surgical History: No Pertinent History Cardiac: No Pertinent History Respiratory: No Pertinent History Gastrointestinal: Appendectomy, Colon Resection, Hernia Repair Genitourinary: No Pertinent History Musculoskeletal: Joint Replacement, Orthopedic Surgery Male Surgical History: No Pertinent History Other Surgical History: open repair right femur. right hip replacement - Social History Smoking Status: Former smoker Exposure to second hand smoke: No Drug Use: none Patient Lives Alone: Yes - Nursing Vital Signs Nursing Vital Signs: Initial Vital Signs Temperature 97.9 F 10/18/23 16:51 Pulse Rate 88 10/18/23 16:51 Respiratory Rate 18 10/18/23 16:51 Blood Pressure 138/87 10/18/23 16:51 O2 Sat by Pulse Oximetry 98 10/18/23 16:51 Pain Scale Pain Intensity 10 - Physical Exam General Appearance: moderate distress Eye Exam: PERRL/EOMI Ears, Nose, Throat Exam: normal ENT inspection, moist mucous membranes Neck Exam: normal inspection, supple, full range of motion, No meningismus Respiratory Exam: normal breath sounds, lungs clear Cardiovascular Exam: regular rate/rhythm, normal heart sounds Gastrointestinal/Abdominal Exam: soft, No tenderness, No distention Back Exam: normal inspection, normal range of motion Mental Status Exam: alert, oriented x 3, 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 Exam: normal speech, PERRL, No facial droop Coordination/Gait Exam: normal cerebellar function Motor/Sensory Exam: no motor deficit, no sensory deficit Skin Exam: normal color, warm, dry, No rash SpO2: 98 - Course Nursing assessment & vital signs reviewed: Yes Ordered Tests: Medication Summary Generic Name Dose Route Start Last Admin Trade Name Freq PRN Reason Stop Dose Admin Sodium Chloride 1,000 mls @ 999 mls/hr 10/18/23 17:44 10/18/23 17:45 Sodium Chloride 0.9% 1000 Ml IV 10/18/23 18:44 999 mls/hr .Q1H1M STA Administration Discontinued Medications Generic Name Dose Route Start Last Admin Trade Name Freq PRN Reason Stop Dose Admin Diphenhydramine HCl 50 mg 10/18/23 17:30 10/18/23 17:41 Diphenhydramine Hcl 50 Mg/Ml Vial IM 10/18/23 17:31 50 mg STAT ONE Administration Diphenhydramine HCl Confirm 10/18/23 17:37 Diphenhydramine Hcl 50 Mg/Ml Vial Administered 10/18/23 17:38 Dose 50 mg .ROUTE .STK-MED ONE Hydromorphone HCl 1 mg 10/18/23 17:30 10/18/23 17:43 Hydromorphone 1 Mg/1ml Inj IM 10/18/23 17:31 1 mg STAT ONE Administration Hydromorphone HCl Confirm 10/18/23 17:38 Hydromorphone 1 Mg/1ml Inj Administered 10/18/23 17:39 Dose 1 mg .ROUTE .STK-MED ONE Sodium Chloride Confirm 10/18/23 17:38 Sodium Chloride 0.9% 1000 Ml Administered 10/18/23 17:39 Dose 1,000 mls @ ud .ROUTE .STK-MED ONE Prochlorperazine Edisylate 5 mg 10/18/23 17:30 10/18/23 17:42 Prochlorperazine Edisylate 10 Mg/2 Ml Vial IM 10/18/23 17:31 5 mg ONCE ONE Administration Prochlorperazine Edisylate Confirm 10/18/23 17:38 Prochlorperazine Edisylate 10 Mg/2 Ml Vial Administered 10/18/23 17:39 Dose 10 mg .ROUTE .STK-MED ONE - Progress Progress: improved Air Movement: good Blood Culture(s) Obtained: No Antibiotics given: No Medical Desision Making - Risk of complications Low Risk: Low risk of morbidity from additional dx testing or treatment - Departure Departure Disposition: Home Clinical Impression: Migraine headache Condition: Stable Critical Care Time: No Referrals: NELDA CASTRO MD [Primary Care Provider] - Follow up/PCP as directed Instructions: Headache, Adult (DC)
[2023-10-18 18:49] VITALS: BP 138/82; PULSE 70; O2SAT 97
== END 2023-10-18 18:49 | disposition home or self-care (01) ==
LOC: ED 16:41
DX: G43.909 Migraine, unspecified, not intractable, without status migrainosus (principal); R11.2 Nausea with vomiting, unspecified; H53.149 Visual discomfort, unspecified; E78.5 Hyperlipidemia, unspecified; I10 Essential (primary) hypertension; Z79.899 Other long term (current) drug therapy
CPT/HCPCS: 96372; 99283; J1170; J1200

== ENCOUNTER 2024-03-10 19:12 | Observation (INO) | payer MEDICARE ==
--- NOTE | 2024-03-10 19:46 | ERPHSYRPT ---
- History of Present Illness Time Seen by Provider: 03/10/24 19:35 Historian: patient, family Exam Limitations: no limitations Patient Subjective Stated Complaint: c/o of abdominal pain Triage Nursing Assessment: Pt brought to ED by mother with the c/o of abdominal pain that started last night on 03/09/2024. Rates 9/10 pain in the left lower quad with palpation. Pt states "the pain feels like I pulled an ab." Nausea and diarrhea present, denies bloody stools, bowel sounds present in all 4 quads, last BM today, last oral intake this morning. Vitals wnl, skin w/n/d, brought in by wheelchair, pt doesn't appear to be in any distress at this time. Physician History: 53-year-old male with history of multiple sclerosis not taking any medications, hypertension, hyperlipidemia, anxiety/depression, rectal cancer status post resection and anastomosis/chemoradiation 2013 currently in remission presented in the ER with complaint of increasing pain left abdomen with associated nausea and multiple episodes of loose watery stool. Patient is not able to hold much down. Patient reports 9/10 intensity pain in the left, aggravated with palpation and movements. Denies hematochezia. No fever or chills reported. Feels weak fatigued tired and dehydrated. Allergies/Adverse Reactions: No Known Drug Allergies Allergy (Verified 03/10/24 19:42) Home Medications: Atorvastatin Calcium [Lipitor] 40 mg PO DAILY 04/14/21 [History] Tamsulosin HCl 0.4 mg [Flomax 0.4 MG] 0.4 mg PO DAILY 04/20/22 [History] Sumatriptan Succinate [Imitrex] 100 mg PO DAILY PRN 08/25/22 [History] Amlodipine Besylate 5 mg [Norvasc 5 mg] 5 mg PO BID 10/18/23 [History] Modafinil 100 mg [Provigil 100MG Tablet] 200 mg PO BID 10/18/23 [History] Hx Tetanus, Diphtheria Vaccination/Date Given: Yes Hx Influenza Vaccination/Date Given: Yes Hx Pneumococcal Vaccination/Date Given: No Travel Risk - International Travel Have you traveled outside of the country in past 3 weeks: No - Emerging Infectious Disease Are you exhibiting symptoms associated with any current EIDs: Yes Symptoms: Abdominal Pain, Diarrhea, Headaches/Body Aches/ - Review of Systems Constitutional: Fatigue, Weakness Eyes: No Symptoms Ears, Nose, & Throat: No Symptoms Respiratory: No Symptoms Cardiac: No Symptoms Abdominal/Gastrointestinal: Abdominal Pain, Nausea, Diarrhea Genitourinary Symptoms: No Symptoms Musculoskeletal: No Symptoms Psychological: Anxiety Endocrine: No Symptoms Hematologic/Lymphatic: No Symptoms Immunological/Allergic: No Symptoms - Past Medical History Pertinent Past Medical History: Yes Neurological History: Migraines ENT History: No Pertinent History Cardiac History: High Cholesterol, Hypertension Respiratory History: No Pertinent History Endocrine Medical History: No Pertinent History Musculoskeletal History: Arthritis, Fractures GI Medical History: Colorectal Cancer History: No Pertinent History Psycho-Social History: Depression Male Reproductive Disorders: No Pertinent History Other Medical History: MS, 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 - Past Surgical History Past Surgical History: Yes Neuro Surgical History: No Pertinent History Cardiac: No Pertinent History Respiratory: No Pertinent History Gastrointestinal: Appendectomy, Colon Resection, Hernia Repair Genitourinary: No Pertinent History Musculoskeletal: Joint Replacement, Orthopedic Surgery Male Surgical History: No Pertinent History Other Surgical History: open repair right femur. right hip replacement - Social History Smoking Status: Former smoker Exposure to second hand smoke: No Drug Use: none Patient Lives Alone: Yes - Social Determinants of Health Will the patient participate in the screening: Yes Do you worry about a steady place to live?: No Do you have any problems with any of the following?: No known problems In the past 12 months,have you had to go without utilities?: No Transportation Issues: No Has anyone in your support network made you feel unsafe?: No Have you or anyone in your house had to go without enough: No - Nursing Vital Signs Nursing Vital Signs: Initial Vital Signs Temperature 97.7 F 03/10/24 19:26 Pulse Rate 79 03/10/24 19:26 Blood Pressure 126/79 03/10/24 19:26 Pain Scale Pain Intensity 7 - Physical Exam General Appearance: no apparent distress, alert Eye Exam: PERRL/EOMI Ears, Nose, Throat Exam: normal ENT inspection Neck Exam: normal inspection, supple, full range of motion Respiratory Exam: normal breath sounds, lungs clear Cardiovascular Exam: regular rate/rhythm, normal heart sounds Gastrointestinal/Abdomen Exam: soft, normal bowel sounds, tenderness, guarding (Left half) Back Exam: normal inspection Extremity Exam: normal inspection, normal range of motion Neurologic Exam: alert, oriented x 3, cooperative Skin Exam: normal color SpO2 Interpretation: normal SpO2: 98 O2 Delivery: Room Air Ordered Tests: Active Orders 24 hr Category Date Time Status Bedrest ROUTINE Activity 03/10/24 23:00 Active Up With Assistance ROUTINE Activity 03/10/24 23:00 Active Call Admit Doctor for Orders ON ADMISSION Care 03/10/24 23:00 Active Code Status Order ROUTINE Care 03/10/24 23:00 Active Fall Protocol Q1H Care 03/10/24 23:00 Active IV Insertion STAT Care 03/10/24 19:42 Completed NPO (ED) STAT Care 03/10/24 19:[address] in Observation ROUTINE Care 03/10/24 23:00 Active ABDOMEN AND PELVIS W CONTRAST [CT] Stat Exams 03/10/24 19:43 Completed CBC W DIFF Stat Lab 03/10/24 19:46 Completed CMP Stat Lab 03/10/24 19:46 Completed LIPASE Stat Lab 03/10/24 19:46 Completed Lactic Acid Stat Lab 03/10/24 19:45 Completed UA W/RFX UR CULTURE Stat Lab 03/10/24 21:45 Completed Pulse Oximetry CONTINUOUS RT 03/10/24 23:00 Active Transfer Order Routine Transfer 03/10/24 Completed Medication Summary Generic Name Dose Route Start Last Admin Trade Name Freq PRN Reason Stop Dose Admin Morphine Sulfate 2 mg 03/10/24 23:10 03/10/24 23:13 Morphine Sulfate 2 Mg/Ml Inj IV 03/15/24 23:09 2 mg Q3H PRN PRN Administration PAIN Discontinued Medications Generic Name Dose Route Start Last Admin Trade Name Freq PRN Reason Stop Dose Admin Sodium Chloride 1,000 mls @ 999 mls/hr 03/10/24 19:42 03/10/24 21:07 Sodium Chloride 0.9% 1000 Ml IV 03/10/24 20:42 Infused .Q1H1M STA Infusion Sodium Chloride Confirm 03/10/24 20:00 Sodium Chloride 0.9% 1000 Ml Administered 03/10/24 20:01 Dose 1,000 mls @ ud .ROUTE .STK-MED ONE Morphine Sulfate 4 mg 03/10/24 19:42 03/10/24 20:10 Morphine Sulfate 4 Mg/Ml Injection IV 03/10/24 19:43 4 mg STAT ONE Administration Morphine Sulfate Confirm 03/10/24 20:00 Morphine Sulfate 4 Mg/Ml Injection Administered 03/10/24 20:01 Dose 4 mg .ROUTE .STK-MED ONE Ondansetron HCl 4 mg 03/10/24 19:42 03/10/24 20:08 Ondansetron Hcl 4 Mg/2 Ml Vial IV 03/10/24 19:43 4 mg STAT ONE Administration Ondansetron HCl Confirm 03/10/24 20:00 Ondansetron Hcl 4 Mg/2 Ml Vial Administered 03/10/24 20:01 Dose 4 mg .ROUTE .STK-MED ONE Lab/Rad Data: Laboratory Result Diagrams 03/10/24 19:46 03/10/24 19:46 Laboratory Results 03/10/24 03/10/24 03/10/24 Range/Units 21:45 19:46 19:46 WBC 8.5 (4.23-9.07) x10^3/uL RBC 4.16 L (4.63-6.08) x10^6/uL Hgb 13.5 L (13.7-17.5) g/dL Hct 40.1 (40.1-51.0) % MCV 96.4 H (79.0-92.2) fL MCH 32.5 H (25.7-32.2) pg MCHC 33.7 (32.3-36.5) g/dL RDW 12.7 (11.6-14.4) % Plt Count 357 H (163-337) x10^3/uL MPV 8.4 L (9.4-12.4) fL Gran % 69.6 H (34.0-67.9) % Immature Gran % (Auto) 0.5 H (0.001-0.429) % Nucleat RBC Rel Count 0.0 (0.00-0.2) % Eos # (Auto) 0.10 (0.04-0.54) x10^3/uL Immature Gran # (Auto) 0.04 H (0.001-0.031) x10^3u/L Absolute Lymphs (auto) 1.83 (1.32-3.57) x10^3/uL Absolute Monos (auto) 0.59 (0.30-0.82) x10^3/uL Absolute Nucleated RBC 0.00 (0.00-0.012) x10^3u/L Lymphocytes % 21.4 L (21.8-53.1) % Monocytes % 6.9 (5.3-12.2) % Eosinophils % 1.2 (0.8-7.0) % Basophils % 0.4 (0.2-1.2) % Absolute Granulocytes 5.95 H (1.78-5.38) x10^3/uL Basophils # 0.03 (0.01-0.08) x10^3/uL Sodium 138 (135-145) mmol/L Potassium 3.7 (3.5-5.1) mmol/L Chloride 103 (98-107) mmol/L Carbon Dioxide 29 (22-30) mmol/L Anion Gap 9.7 (5-15) MEQ/L BUN 13 (9-20) mg/dL Creatinine 0.80 (0.66-1.25) mg/dL Estimated GFR 105.2 ML/MIN Glucose 81 (74-106) mg/dL Lactic Acid (0.4-2.0) Calcium 9.3 (8.4-10.2) mg/dL Total Bilirubin 0.10 L (0.2-1.3) mg/dL AST 27 (17-59) U/L ALT 19 (0-50) U/L Alkaline Phosphatase 91 (38-126) U/L Serum Total Protein 6.4 (6.3-8.2) g/dL Albumin 3.8 (3.5-5.0) g/dL Lipase 34 (23-300) U/L Urine Color Yellow (Yellow) Urine Appearance Clear (Clear) Urine pH 7.0 (4.6-8.0) Ur Specific [place] >=1.030 A (1.005-1.030) Urine Protein Negative (Negative) Urine Glucose (UA) Negative (Negative) mg/dL Urine Ketones Negative (Negative) Urine Blood Negative (Negative) Urine Nitrite Negative (Negative) Urine Bilirubin Negative (Negative) Urine Urobilinogen 0.2 (0.2) mg/dL Ur Leukocyte Esterase Negative (Negative) U Hyaline Cast (Auto) NONE SEEN (0-2) /LPF Urine Microscopic RBC 0-2 (0-5) /HPF Urine Microscopic WBC 0-2 (0-5) /HPF Ur Epithelial Cells None Seen (None Seen) /HPF Urine Bacteria None Seen (None Seen) /HPF Urine Culture Reflexed NO (NO) 03/10/24 Range/Units 19:45 WBC (4.23-9.07) x10^3/uL RBC (4.63-6.08) x10^6/uL Hgb (13.7-17.5) g/dL Hct (40.1-51.0) % MCV (79.0-92.2) fL MCH (25.7-32.2) pg MCHC (32.3-36.5) g/dL RDW (11.6-14.4) % Plt Count (163-337) x10^3/uL MPV (9.4-12.4) fL Gran % (34.0-67.9) % Immature Gran % (Auto) (0.001-0.429) % Nucleat RBC Rel Count (0.00-0.2) % Eos # (Auto) (0.04-0.54) x10^3/uL Immature Gran # (Auto) (0.001-0.031) x10^3u/L Absolute Lymphs (auto) (1.32-3.57) x10^3/uL Absolute Monos (auto) (0.30-0.82) x10^3/uL Absolute Nucleated RBC (0.00-0.012) x10^3u/L Lymphocytes % (21.8-53.1) % Monocytes % (5.3-12.2) % Eosinophils % (0.8-7.0) % Basophils % (0.2-1.2) % Absolute Granulocytes (1.78-5.38) x10^3/uL Basophils # (0.01-0.08) x10^3/uL Sodium (135-145) mmol/L Potassium (3.5-5.1) mmol/L Chloride (98-107) mmol/L Carbon Dioxide (22-30) mmol/L Anion Gap (5-15) MEQ/L BUN (9-20) mg/dL Creatinine (0.66-1.25) mg/dL Estimated GFR ML/MIN Glucose (74-106) mg/dL Lactic Acid 2.0 (0.4-2.0) Calcium (8.4-10.2) mg/dL Total Bilirubin (0.2-1.3) mg/dL AST (17-59) U/L ALT (0-50) U/L Alkaline Phosphatase (38-126) U/L Serum Total Protein (6.3-8.2) g/dL Albumin (3.5-5.0) g/dL Lipase (23-300) U/L Urine Color (Yellow) Urine Appearance (Clear) Urine pH (4.6-8.0) Ur Specific [place] (1.005-1.030) Urine Protein (Negative) Urine Glucose (UA) (Negative) mg/dL Urine Ketones (Negative) Urine Blood (Negative) Urine Nitrite (Negative) Urine Bilirubin (Negative) Urine Urobilinogen (0.2) mg/dL Ur Leukocyte Esterase (Negative) U Hyaline Cast (Auto) (0-2) /LPF Urine Microscopic RBC (0-5) /HPF Urine Microscopic WBC (0-5) /HPF Ur Epithelial Cells (None Seen) /HPF Urine Bacteria (None Seen) /HPF Urine Culture Reflexed (NO) - Progress Progress: improved Progress Note: 03/10/24 22:42 53-year-old with history of multiple sclerosis, rectal cancer status post resection and anastomosis is evaluated in the ER for left-sided abdominal pain with nausea and diarrhea since yesterday. Patient has significant tenderness during initial evaluation. He is given fluids and symptomatic treatment, on reevaluation his pain is better but still have tenderness in the left half. Workup showed normal white count, fairly unremarkable chemistries. CT abdomen pelvis with contrast consistent with diffuse enteritis with no free air but small amount of abdominal pelvic fluid. Patient had multiple episodes of loose stool while in the ER where patient gets dizzy lightheaded and as if he is going to pass out. I believe patient is dehydrated and will benefit with IV hydration and symptomatic treatment for pain. Patient has no recent antibiotics intake, diarrhea started yesterday, if it continues may need evaluation for C. difficile. Discussed results of workup with patient and family, recommended observation admission which they agree. I have discussed with Dr. Izaguirre, reviewed history, workup and patient is accepted for admission. Counseled pt/family regarding: lab results, diagnosis, need for follow-up, rad results Medical Desision Making - Independent Historian Additional History obtained from: Mother - Discussion of managment Care discussed with:: hospitalist Reviewed:: Test results Agreed on:: Treatment plan Will see patient: in ED - Diagnostic Testing Diagnostic test were ordered, analyzed, and reviewed by me: Yes Radiological Interpretation: Reviewed by me - Risk of complications The pt has a mod risk of morbidity or mortality based on: Need for prescription drug management The pt has a high risk of morbidity or mortality based on: Decision regarding hospitilization or escalation of hosp level of care - Departure Departure Disposition: Observation Clinical Impression: Enteritis Condition: Stable Critical Care Time: No
[2024-03-10 19:48] LABS: Absolute Neutrophil Ct (ANC) 5.95 x10^3/uL (1.78-5.38); BASOPHIL % 0.4 % (0.2-1.2); Basophil (Absolute #) 0.03 x10^3/uL (0.01-0.08); Eosinophil % 1.2 % (0.8-7.0); Hematocrit 40.1 % (40.1-51.0); Hemoglobin 13.5 g/dL (13.7-17.5); IMMATURE GRAN # 0.04 x10^3u/L (0.001-0.031); IMMATURE GRAN % 0.5 % (0.001-0.429); Lymphocyte (Absolute #) 1.83 x10^3/uL (1.32-3.57); Lymphocytes % 21.4 % (21.8-53.1); Mean Cell Volume 96.4 fL (79.0-92.2); Mean Corpuscular Hemoglobin 32.5 pg (25.7-32.2); Mean Corpuscular Hgb Concent. 33.7 g/dL (32.3-36.5); Mean Platelet Volume 8.4 fL (9.4-12.4); Monocyte (Absolute #) 0.59 x10^3/uL (0.30-0.82); Monocytes % 6.9 % (5.3-12.2); Neutrophil % 69.6 % (34.0-67.9); Platelet Count 357 x10^3/uL (163-337); Red Blood Count 4.16 x10^6/uL (4.63-6.08); Red Cell Distribution Width 12.7 % (11.6-14.4); White Blood Count 8.5 x10^3/uL (4.23-9.07)
[2024-03-10 19:57] LABS: ALBUMIN 3.8 g/dL (3.5-5.0); ANION GAP 9.7 MEQ/L (5-15); BILIRUBIN,TOTAL 0.1 mg/dL (0.2-1.3); Calcium 9.3 mg/dL (8.4-10.2); Creatinine 1 0.8 mg/dL (0.66-1.25); EST GLOMERULAR FILTRATION RATE 105.2 ML/MIN; Potassium 3.7 mmol/L (3.5-5.1); Total Protein 6.4 g/dL (6.3-8.2)
[2024-03-10] MEDS ORDERED: MORPHINE SULFATE 4 MG INJ ONE (20:00)
[2024-03-10] MEDS ORDERED: Sodium Chloride 0.9% 1000 ML 1,000 ML ONE (20:00)
[2024-03-10] MEDS ORDERED: Zofran 4 MG/2 ML VIAL ONE (20:00)
[2024-03-10] MEDS: Sodium Chloride 0.9% 1000 ML 1,000 ML IV STA (20:06)
[2024-03-10] MEDS: Zofran 4 MG/2 ML VIAL IV ONE (20:08)
[2024-03-10] MEDS: MORPHINE SULFATE 4 MG INJ IV ONE (20:10)
[2024-03-10 21:56] LABS: Appearance Clear (Clear); Bacteria None Seen /HPF (None Seen); Bilirubin Negative (Negative); Blood Negative (Negative); Epithelial Cells None Seen /HPF (None Seen); Glucose, Urine Negative (Negative); Hyaline Casts NONE SEEN /LPF (0-2); Ketones Negative (Negative); Leukocyte Esterase Negative (Negative); Nitrite Negative (Negative); Protein,Urine Dip Negative (Negative); RBC 0-2 /HPF (0-5); Specific Gravity >=1.030 (1.005-1.030); Urobilinogen 0.2 mg/dL (0.2); WBC 0-2 /HPF (0-5)
[2024-03-10 21:58] LABS: ADD URINE CULTURE? NO (NO)
--- NOTE | 2024-03-10 22:23 | XRAY ---
Indication: Abdominal pain. Nausea and diarrhea. History rectal cancer. Multiple contiguous axial images obtained through the abdomen and pelvis using 80 cc Isovue 370 contrast. Comparison: February 23, 2022 Lung bases remain clear. Heart is not enlarged. Noncontrasted stomach and bowel loops appear nonobstructed. New mild/moderate diffuse fluid distended small bowel loops with air-fluid leveling and circumferential wall thickening favoring enteritis. Also new small abdominal/pelvic free fluid presumed reactive. No walled off fluid collection or free air. Again intact sigmoid anastomosis. Remaining liver, gallbladder, pancreas, spleen, adrenal glands, kidneys, ureters, and bladder are normal in CT appearance and attenuation. Again minimal scattered aortoiliac calcifications. No AAA or pathologic retroperitoneal lymphadenopathy. Osseous structures intact again with mild degenerative changes throughout spine, minimal lumbar levoscoliosis, and right total hip arthroplasty. No suspicious bony lesions. Impression: 1. New CT findings favoring diffuse enteritis. Small abdominal/pelvic free fluid presumed reactive. No free air. 2. Again chronic findings including arteriosclerotic disease and chronic bony findings.
[2024-03-10] MEDS ORDERED: MORPHINE SULFATE 2 MG INJ ONE (23:12)
[2024-03-10] MEDS: MORPHINE SULFATE 2 MG INJ IV PRN (23:13)
[2024-03-11] MEDS ORDERED: Zofran 4 MG/2 ML VIAL IV PRN (00:55)
[2024-03-11] MEDS ORDERED: APRESOLINE 20 MG/ML INJ IV PRN (00:58)
--- NOTE | 2024-03-11 01:06 | PCM.HP ---
History of Present Illness - Chief Complaint Chief Complaint: enteritis Date: 03/11/24 History of Present Illness: Mr. Harp is a 53 year-old gentleman with MS (not on medication), HTN, HLD, and rectal cancer s/p resection + XRT who presents with belly pain. He admits to both carmpy and sharp left sided belly pain that started last night - crampy + sharp; 7-9/10; no radiation; associated with diarrhea, nausea, and vomiting. The only thing he at yesterday was a watermelon and there have been no changes to his diet in the last seven days. Upon arrival to [place], laboratory data was fairly unremarkable, and his belly imaging revealed enteritis. On my examination, he continues to have 5/10 belly pain denying any current fevers, chills, nausea, vomiting, diarrhea, syncope, presyncope, visual changes, orthopnea, PND, odynophagia, dysphagia, chest pain, shortness of breath, dysuria, hematuria, melena, hematochezia, or neurological changes. All other systems were reviewed and were negative. - Review of Systems Constitutional: Other ( PER HPI) Medications & Allergies Home Medications: Home Medication List Atorvastatin Calcium [Lipitor] 40 mg PO DAILY 04/14/21 [History Confirmed 03/10/24] Tamsulosin HCl 0.4 mg [Flomax 0.4 MG] 0.4 mg PO DAILY 04/20/22 [History Confirmed 03/10/24] Sumatriptan Succinate [Imitrex] 100 mg PO DAILY PRN 08/25/22 [History Confirmed 03/10/24] Amlodipine Besylate 5 mg [Norvasc 5 mg] 5 mg PO BID 10/18/23 [History Confirmed 03/10/24] Modafinil 100 mg [Provigil 100MG Tablet] 200 mg PO BID 10/18/23 [History Confirmed 03/10/24] Allergies/Adverse Reactions: Allergies Allergy/AdvReac Type Severity Reaction Status Date / Time No Known Drug Allergies Allergy Verified 03/10/24 19:42 - Past Medical History Past Medical History: Yes Neurological History: Migraines ENT History: No Pertinent History Cardiac History: High Cholesterol, Hypertension Respiratory History: No Pertinent History Endocrine Medical History: No Pertinent History Musculoskelatal History: Arthritis, Fractures GI Medical History: Colorectal Cancer History: No Pertinent History Pyscho-Social History: Depression Male Reproductive Disorders: No Pertinent History Comment: MS, 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 - Past Surgical History Past Surgical History: Yes Neuro Surgical History: No Pertinent History Cardiac History: No Pertinent History Respiratory Surgery: No Pertinent History GI Surgical History: Appendectomy, Colon Resection, Hernia Repair Genitourinary Surgical Hx: No Pertinent History Musculskeletal Surgical Hx: Joint Replacement, Orthopedic Surgery Male Surgical History: No Pertinent History Other Surgical History: open repair right femur. right hip replacement Significant Family History: no pertinent family hx - Social History Smoking Status: Former smoker Exposure to second hand smoke: No Alcohol: Rarely Drug Use: none - Social Determinants of Health Will the patient participate in the screening: Yes Do you worry about a steady place to live?: No Do you have any problems with any of the following?: No known problems In the past 12 months,have you had to go without utilities?: No Have you or anyone in your house had to go without enough: No Transportation Issues: No Has anyone in your support network made you feel unsafe?: No Does the patient want assistance with any of the above?: No - Physical Exam Vital Signs: Vital Signs - 24 hr Temp Pulse Resp BP BP Pulse Ox 03/10/24 23:39 98 03/10/24 23:00 98.4 F 74 18 136/81 99 03/10/24 22:00 80 19 129/79 100 03/10/24 21:30 80 16 131/82 100 03/10/24 21:00 77 19 139/86 100 03/10/24 20:32 76 16 143/91 100 03/10/24 20:00 79 18 120/78 100 03/10/24 19:30 79 18 118/80 100 03/10/24 19:26 97.7 F 79 126/79 General Appearance: no apparent distress, alert Neurologic Exam: alert, oriented x 3, cooperative, normal mood/affect, nml cerebellar function, nml station & gait, sensation nml, No motor deficits Eye Exam: PERRL/EOMI, eyes nml inspection Ears, Nose, Throat Exam: normal ENT inspection, TMs normal, pharynx normal, moist mucous membranes Neck Exam: normal inspection, non-tender, supple, full range of motion Respiratory Exam: normal breath sounds, lungs clear, No respiratory distress Cardiovascular Exam: regular rate/rhythm, normal heart sounds, normal peripheral pulses Gastrointestinal/Abdomen Exam: soft, tenderness, other (TTP WITH PALPATION; HYPOACTIVE BS) Back Exam: normal inspection, normal range of motion, No CVA tenderness, No vertebral tenderness Extremity Exam: normal inspection, normal range of motion, pelvis stable Skin Exam: normal color, warm, dry, No rash Lymphatic Exam: No adenopathy Results - Labs Lab/Micro Results: Lab Results-Last 24 Hours 03/10/24 03/10/24 03/10/24 Range/Units 19:45 19:46 19:46 WBC 8.5 (4.23-9.07) x10^3/uL RBC 4.16 L (4.63-6.08) x10^6/uL Hgb 13.5 L (13.7-17.5) g/dL Hct 40.1 (40.1-51.0) % MCV 96.4 H (79.0-92.2) fL MCH 32.5 H (25.7-32.2) pg MCHC 33.7 (32.3-36.5) g/dL RDW 12.7 (11.6-14.4) % Plt Count 357 H (163-337) x10^3/uL MPV 8.4 L (9.4-12.4) fL Gran % 69.6 H (34.0-67.9) % Immature Gran % (Auto) 0.5 H (0.001-0.429) % Nucleat RBC Rel Count 0.0 (0.00-0.2) % Eos # (Auto) 0.10 (0.04-0.54) x10^3/uL Immature Gran # (Auto) 0.04 H (0.001-0.031) x10^3u/L Absolute Lymphs (auto) 1.83 (1.32-3.57) x10^3/uL Absolute Monos (auto) 0.59 (0.30-0.82) x10^3/uL Absolute Nucleated RBC 0.00 (0.00-0.012) x10^3u/L Lymphocytes % 21.4 L (21.8-53.1) % Monocytes % 6.9 (5.3-12.2) % Eosinophils % 1.2 (0.8-7.0) % Basophils % 0.4 (0.2-1.2) % Absolute Granulocytes 5.95 H (1.78-5.38) x10^3/uL Basophils # 0.03 (0.01-0.08) x10^3/uL Sodium 138 (135-145) mmol/L Potassium 3.7 (3.5-5.1) mmol/L Chloride 103 (98-107) mmol/L Carbon Dioxide 29 (22-30) mmol/L Anion Gap 9.7 (5-15) MEQ/L BUN 13 (9-20) mg/dL Creatinine 0.80 (0.66-1.25) mg/dL Estimated GFR 105.2 ML/MIN Glucose 81 (74-106) mg/dL Lactic Acid 2.0 (0.4-2.0) Calcium 9.3 (8.4-10.2) mg/dL Total Bilirubin 0.10 L (0.2-1.3) mg/dL AST 27 (17-59) U/L ALT 19 (0-50) U/L Alkaline Phosphatase 91 (38-126) U/L Serum Total Protein 6.4 (6.3-8.2) g/dL Albumin 3.8 (3.5-5.0) g/dL Lipase 34 (23-300) U/L Urine Color (Yellow) Urine Appearance (Clear) Urine pH (4.6-8.0) Ur Specific Pitman (1.005-1.030) Urine Protein (Negative) Urine Glucose (UA) (Negative) mg/dL Urine Ketones (Negative) Urine Blood (Negative) Urine Nitrite (Negative) Urine Bilirubin (Negative) Urine Urobilinogen (0.2) mg/dL Ur Leukocyte Esterase (Negative) U Hyaline Cast (Auto) (0-2) /LPF Urine Microscopic RBC (0-5) /HPF Urine Microscopic WBC (0-5) /HPF Ur Epithelial Cells (None Seen) /HPF Urine Bacteria (None Seen) /HPF Urine Culture Reflexed (NO) 09/13/24 Range/Units 21:45 WBC (4.23-9.07) x10^3/uL RBC (4.63-6.08) x10^6/uL Hgb (13.7-17.5) g/dL Hct (40.1-51.0) % MCV (79.0-92.2) fL MCH (25.7-32.2) pg MCHC (32.3-36.5) g/dL RDW (11.6-14.4) % Plt Count (163-337) x10^3/uL MPV (9.4-12.4) fL Gran % (34.0-67.9) % Immature Gran % (Auto) (0.001-0.429) % Nucleat RBC Rel Count (0.00-0.2) % Eos # (Auto) (0.04-0.54) x10^3/uL Immature Gran # (Auto) (0.001-0.031) x10^3u/L Absolute Lymphs (auto) (1.32-3.57) x10^3/uL Absolute Monos (auto) (0.30-0.82) x10^3/uL Absolute Nucleated RBC (0.00-0.012) x10^3u/L Lymphocytes % (21.8-53.1) % Monocytes % (5.3-12.2) % Eosinophils % (0.8-7.0) % Basophils % (0.2-1.2) % Absolute Granulocytes (1.78-5.38) x10^3/uL Basophils # (0.01-0.08) x10^3/uL Sodium (135-145) mmol/L Potassium (3.5-5.1) mmol/L Chloride (98-107) mmol/L Carbon Dioxide (22-30) mmol/L Anion Gap (5-15) MEQ/L BUN (9-20) mg/dL Creatinine (0.66-1.25) mg/dL Estimated GFR ML/MIN Glucose (74-106) mg/dL Lactic Acid (0.4-2.0) Calcium (8.4-10.2) mg/dL Total Bilirubin (0.2-1.3) mg/dL AST (17-59) U/L ALT (0-50) U/L Alkaline Phosphatase (38-126) U/L Serum Total Protein (6.3-8.2) g/dL Albumin (3.5-5.0) g/dL Lipase (23-300) U/L Urine Color Yellow (Yellow) Urine Appearance Clear (Clear) Urine pH 7.0 (4.6-8.0) Ur Specific Pitman >=1.030 A (1.005-1.030) Urine Protein Negative (Negative) Urine Glucose (UA) Negative (Negative) mg/dL Urine Ketones Negative (Negative) Urine Blood Negative (Negative) Urine Nitrite Negative (Negative) Urine Bilirubin Negative (Negative) Urine Urobilinogen 0.2 (0.2) mg/dL Ur Leukocyte Esterase Negative (Negative) U Hyaline Cast (Auto) NONE SEEN (0-2) /LPF Urine Microscopic RBC 0-2 (0-5) /HPF Urine Microscopic WBC 0-2 (0-5) /HPF Ur Epithelial Cells None Seen (None Seen) /HPF Urine Bacteria None Seen (None Seen) /HPF Urine Culture Reflexed NO (NO) Microbiology 03/11/24 Unknown Stool Culture Result 1 - Final Stool Not Reportable Stool Culture Result 2 - Final Not Reportable Stool Culture Result 3 - Final Not Reportable Stool Culture Result 4 - Final Not Reportable Stool Culture Organism Suscept - Final Not Reportable Campylobacter Result 1 - Final Not Reportable Campylobacter Result 2 - Final Not Reportable Campylobactor Result 3 - Final Not Reportable Campylobacter Result 4 - Final Not Reportable Campylobactor Susceptibility - Final Not Reportable - Radiology Impressions Radiology Exams & Impressions: Radiology Procedures Category Date Time Status ABDOMEN AND PELVIS W CONTRAST [CT] Stat Exams 03/10/24 19:43 Completed Assessment/Plan (1) Acute gastroenteritis Current Visit: No Status: Acute Assessment & Plan: ANTIBIOTICS AND STEROIDS Ciprofloxacin Flagyl ASSESSMENT 1. Acute Gastroenteritis 2. Nausea and Vomiting 3. Diarrhea 4. Hypertension 5. Hyperlipidemia 6. Multiple Sclerosis 7. Rectal Cancer s/p Resection + XRT PLAN 1. Fluids 2. Morphine for pain control 3. Cipro + Flagyl 4. Zofran 5. PPI 6. Stool studies: cultures, O&P, Cdiff SCDs/PPI The entirety of this encounter was done via telemedicine with audio and visual. Consent was obtained for a telemedicine encounter. Artemio Izaguirre MD Pulmonary and Critical Care Medicine Code(s): K52.9 - NONINFECTIVE GASTROENTERITIS AND COLITIS, UNSPECIFIED Telemedicine Encounter - Telemedicine Encounter Telemedicine Encounter: "The entirety of this encounter was performed via Telemedicine" This visit was performed using real-time audio and video connection between my location and thepatients locationwith the assistance of a surrogateat the patients location. Written or verbal consent was obtained from the patient/guardian to perform this visit using[facility] technology. Any patient questions regarding the telemedicine interaction were answered.
[2024-03-11] MEDS ORDERED: FLAGYL 500 MG IVPB 500 MG/100 ML BAG IV SCH ×2 (01:09→06:00)
[2024-03-11] MEDS ORDERED: FLAGYL 500 MG IVPB 500 MG/100 ML BAG IV ONE (01:11)
[2024-03-11] MEDS: Lactated Ringers 1,000 ML IV SCH (01:14)
[2024-03-11] MEDS: Levofloxacin 500MG/100ML D5W 500 MG/100 ML BAG IV SCH ×2 (01:15→21:29)
[2024-03-11] MEDS: MORPHINE SULFATE 2 MG INJ IV PRN (01:38)
[2024-03-11] MEDS: PROTONIX 40 MG IV IV SCH ×2 (01:39→09:51)
[2024-03-11] MEDS: FLAGYL 500 MG IVPB 500 MG/100 ML BAG IV SCH (02:25)
[2024-03-11] MEDS: Hydromorphone 1 mg/ml Injection IV ONE (04:09)
[2024-03-11 05:58] LABS: Absolute Neutrophil Ct (ANC) 7.14 x10^3/uL (1.78-5.38); BASOPHIL % 0.3 % (0.2-1.2); Basophil (Absolute #) 0.03 x10^3/uL (0.01-0.08); Eosinophil % 1.4 % (0.8-7.0); Eosinophil (Absolute #) 0.13 x10^3/uL (0.04-0.54); Hematocrit 38.6 % (40.1-51.0); Hemoglobin 12.8 g/dL (13.7-17.5); IMMATURE GRAN # 0.03 x10^3u/L (0.001-0.031); IMMATURE GRAN % 0.3 % (0.001-0.429); Lymphocyte (Absolute #) 1.28 x10^3/uL (1.32-3.57); Lymphocytes % 13.7 % (21.8-53.1); Mean Cell Volume 97.5 fL (79.0-92.2); Mean Corpuscular Hemoglobin 32.3 pg (25.7-32.2); Mean Corpuscular Hgb Concent. 33.2 g/dL (32.3-36.5); Mean Platelet Volume 8.7 fL (9.4-12.4); Monocyte (Absolute #) 0.76 x10^3/uL (0.30-0.82); Monocytes % 8.1 % (5.3-12.2); Neutrophil % 76.2 % (34.0-67.9); Platelet Count 337 x10^3/uL (163-337); Red Blood Count 3.96 x10^6/uL (4.63-6.08); White Blood Count 9.4 x10^3/uL (4.23-9.07)
[2024-03-11 06:27] LABS: ALBUMIN 3.5 g/dL (3.5-5.0); ANION GAP 7.3 MEQ/L (5-15); BILIRUBIN,TOTAL 0.3 mg/dL (0.2-1.3); Creatinine 1 0.88 mg/dL (0.66-1.25); EST GLOMERULAR FILTRATION RATE 102.2 ML/MIN; Potassium 4.2 mmol/L (3.5-5.1); Total Protein 6.1 g/dL (6.3-8.2)
[2024-03-11] MEDS: MORPHINE SULFATE 4 MG INJ IV PRN (09:52)
[2024-03-11] MEDS ORDERED: Levofloxacin 500MG/100ML D5W 500 MG/100 ML BAG IV SCH (10:00)
[2024-03-11 21:19] LABS: Barbiturate,Urine NEGATIVE (NEGATIVE); Benzodiazepine,Urine NEGATIVE (NEGATIVE); Cocaine,Urine NEGATIVE (NEGATIVE); Methadone,Urine NEGATIVE (NEGATIVE); Opiate,Urine POSITIVE (NEGATIVE); PCP,Urine NEGATIVE (NEGATIVE); THC,Urine NEGATIVE (NEGATIVE)
[2024-03-11 21:45] LABS: Amphetamine,Urine POSITIVE (NEGATIVE)
[2024-03-12 05:20] LABS: Hematocrit 34.8 % (40.1-51.0); Hemoglobin 11.9 g/dL (13.7-17.5); Mean Cell Volume 96.7 fL (79.0-92.2); Mean Corpuscular Hemoglobin 33.1 pg (25.7-32.2); Mean Corpuscular Hgb Concent. 34.2 g/dL (32.3-36.5); Mean Platelet Volume 8.5 fL (9.4-12.4); Platelet Count 281 x10^3/uL (163-337); Red Cell Distribution Width 12.5 % (11.6-14.4); White Blood Count 4.6 x10^3/uL (4.23-9.07)
[2024-03-12 05:53] LABS: ALBUMIN 3.2 g/dL (3.5-5.0); ANION GAP 8.4 MEQ/L (5-15); BILIRUBIN,TOTAL 0.3 mg/dL (0.2-1.3); Calcium 8.9 mg/dL (8.4-10.2); Creatinine 1 0.8 mg/dL (0.66-1.25); EST GLOMERULAR FILTRATION RATE 105.2 ML/MIN; Potassium 3.7 mmol/L (3.5-5.1); Total Protein 5.7 g/dL (6.3-8.2)
[2024-03-12] MEDS: Flomax 0.4 MG PO SCH (06:28)
[2024-03-12] MEDS ORDERED: SUMATRIPTAN SUCCINATE 50 MG PO PRN (08:06)
[2024-03-12] MEDS ORDERED: MEDICATION INTERVENTION MC SCH (08:15)
--- NOTE | 2024-03-12 08:17 | PCM.DS ---
Discharge Summary Date of Admission: 03/10/24 22:54 Date of Discharge: 03/12/24 Admitting Physician: SHAD RESENDEZ MD Consults: Consults on Case 03/10/24 23:37 Nutritional Consult ROUTINE 03/11/24 09:28 Consult Surgery ROUTINE Primary Care Provider: NELDA CASTRO Allergies Allergies No Known Drug Allergies Allergy (Verified 03/10/24 19:42) Hospital Summary - Hospital Course Hospital Course: 03/12/24 Mr. Harp is a 53 year-old gentleman with MS (not on medication), HTN, HLD, and rectal cancer s/p resection + XRT. He presented with belly pain on 03/11. He admits to both carmpy and sharp left sided belly pain that started the previous night; 7-03/07; no radiation; associated with diarrhea, nausea, and vomiting. The only thing he at yesterday was a watermelon and there have been no changes to his diet in the last seven days. Upon arrival to [place], laboratory data was fairly unremarkable, and his belly imaging revealed enteritis. Yesterday he continued to have 10/10 belly pain and his pain was out of proportion to his CT findings so general surgery consulted. physician came to see him and explained he will do colonscopy Wednesday or Wednesday. Diet was changed to clears by yesterday. Pt states he feels better today and would like to go home. He does not want to do prep for colonoscopy IP. He would rather do this OP. He states he has been up all night as his room was very warm and it was loud out at the nurses station. it appears he had a temp of 99 twice last night. BC x2 ordered. Pt feels it was because his room was so hot. Discussed pt's noise complaint and room temp with dry house worker. She did offer to move pt to another room but if he wants to leave today this would not be necessary. He continues to have some abd pain of LLQ but it has improved. UDS + for meth. Discussed this with pt and asked if he wanted treatment OP. He refuses and states, "I only did this twice so I could stay awake as I sleep 16-18 hours a day because of my MS." " I do not have a problem and I can stop doing it." Advised cessation and explained there are prescription medications for this. He stated he has taken meds for this before such as modafinil and this was not helpful and he still slept. Explained that dosing could be increased if start dose was not helpful, however he could not be doing drugs as a provider would not prescribe. He again wants to go home and is irritable. He told nursing staff he is leaving today. Pt reported he follows for PCP Dr. Castro and wants him to do his colonoscopy OP. Since it is Wednesday pt advised to call tomorrow and make f/u OP appointment to discuss this with him. Pt agreeable. - Vitals & Intake/Output Vital Signs: Vital Signs Temperature 98.3 F 03/12/24 06:19 Pulse Rate 80 03/12/24 06:19 Respiratory Rate 28 H 03/12/24 06:19 Blood Pressure 134/82 03/12/24 06:19 O2 Sat by Pulse Oximetry 99 03/12/24 06:19 Intake & Output: Intake & Output 03/09/24 03/10/24 03/11/24 03/12/24 11:59 11:59 11:59 11:59 Intake Total 465 2436 Output Total 325 2150 Balance 140 286 Weight 83.3 kg 84 kg - Lab Result Diagrams: 03/12/24 05:05 03/12/24 05:05 Lab Results-Last 24 Hrs: Lab Results-Last 24 Hours 03/11/24 03/12/24 03/12/24 Range/Units 20:59 05:05 05:05 WBC 4.6 (4.23-9.07) x10^3/uL RBC 3.60 L (4.63-6.08) x10^6/uL Hgb 11.9 L (13.7-17.5) g/dL Hct 34.8 L (40.1-51.0) % MCV 96.7 H (79.0-92.2) fL MCH 33.1 H (25.7-32.2) pg MCHC 34.2 (32.3-36.5) g/dL RDW 12.5 (11.6-14.4) % Plt Count 281 (163-337) x10^3/uL MPV 8.5 L (9.4-12.4) fL Sodium 135 (135-145) mmol/L Potassium 3.7 (3.5-5.1) mmol/L Chloride 104 (98-107) mmol/L Carbon Dioxide 27 (22-30) mmol/L Anion Gap 8.4 (5-15) MEQ/L BUN 7 L (9-20) mg/dL Creatinine 0.80 (0.66-1.25) mg/dL Estimated GFR 105.2 ML/MIN Glucose 91 (74-106) mg/dL Calcium 8.9 (8.4-10.2) mg/dL Total Bilirubin 0.30 (0.2-1.3) mg/dL AST 23 (17-59) U/L ALT 14 (0-50) U/L Alkaline Phosphatase 89 (38-126) U/L Serum Total Protein 5.7 L (6.3-8.2) g/dL Albumin 3.2 L (3.5-5.0) g/dL Urine Opiates Level POSITIVE A (NEGATIVE) Ur Methadone NEGATIVE (NEGATIVE) Urine Barbiturates NEGATIVE (NEGATIVE) Ur Phencyclidine (PCP) NEGATIVE (NEGATIVE) Urine Amphetamine POSITIVE A (NEGATIVE) U Benzodiazepine Level NEGATIVE (NEGATIVE) Urine Cocaine NEGATIVE (NEGATIVE) Urine Marijuana (THC) NEGATIVE (NEGATIVE) Micro Results-Entire Visit: Microbiology 03/11/24 Unknown Stool Culture Result 1 - Final Stool Not Reportable Stool Culture Result 2 - Final Not Reportable Stool Culture Result 3 - Final Not Reportable Stool Culture Result 4 - Final Not Reportable Stool Culture Organism Suscept - Final Not Reportable Campylobacter Result 1 - Final Not Reportable Campylobacter Result 2 - Final Not Reportable Campylobactor Result 3 - Final Not Reportable Campylobacter Result 4 - Final Not Reportable Campylobactor Susceptibility - Final Not Reportable - Radiology Exams Ordered Rad Exams-Entire Visit: Radiology Procedures Category Date Time Status ABDOMEN AND PELVIS W CONTRAST [CT] Stat Exams 03/10/24 19:43 Completed - Procedures and Test Procedures and Tests throughout Hospitalization: Therapy Orders & Screens 03/13/24 09:00 OT Screen per Nursing Assess ONCE Comment: Protocol Order Physician Instructions: Greater than 3 points order OT Admission Screening Reason For Exam: Triggered on Admission Diagnosis: enteritis Open Wound/Cellutlitis/Pressure Ulcers: No Acute Fx/ORIF/Change in wt bearing status: No Severe MUSCULOSKELETAL pain: No ADL Dysfunction: Yes Acute CVA w/Hemiparesis/Hemiplegia: No Decreased Functional Mobility/Strength: Yes Sprain/Strain: No Acute Post-op Mobility Dysfunction: No Total Points: 4 PT Screen per Nursing Assess ONCE Comment: Protocol Order Physician Instructions: Greater than 3 points order PT Admission Screenin Reason For Exam: Triggered on Admission Diagnosis: enteritis Open Wound/Cellutlitis/Pressure Ulcers: No Acute Fx/ORIF/Change in wt bearing status: No Severe MUSCULOSKELETAL pain: No ADL Dysfunction: Yes Acute CVA w/Hemiparesis/Hemiplegia: No Decreased Functional Mobility/Strength: Yes Sprain/Strain: No Acute Post-op Mobility Dysfunction: No Total Points: 4 Discharge Exam General Appearance: no apparent distress, alert Neurologic Exam: alert, oriented x 3, cooperative, normal mood/affect, nml cerebellar function, sensation nml, No motor deficits Eye Exam: PERRL, EOMI, eyes nml inspection Ears, Nose, Throat Exam: normal ENT inspection, pharynx normal, moist mucous membranes Neck Exam: normal inspection, non-tender, supple, full range of motion Respiratory Exam: normal breath sounds, lungs clear, No respiratory distress Cardiovascular Exam: regular rate/rhythm, normal heart sounds Gastrointestinal/Abdomen Exam: soft, tenderness (LLQ), No mass Male Genitalia Exam: deferred Rectal Exam: deferred Back Exam: normal inspection, normal range of motion, No CVA tenderness, No vertebral tenderness Extremity Exam: normal inspection, normal range of motion Skin Exam: normal color, warm, dry Final Diagnosis/Problem List - Final Discharge Diagnosis/Problem (1) Enteritis Current Visit: Yes Status: Acute Assessment & Plan: - Flagyl and Levaquin - Morphine IV for pain - Zofran for N/V - IVF - Tele - GS consult- recs Colonoscopy Wednesday or Wednesday - Diet changed to clear liquid 03/11/24 - Temp 99 x2 last night - BC x2 today - IV pain meds changed to PO narcotic pain med Code(s): K52.9 - NONINFECTIVE GASTROENTERITIS AND COLITIS, UNSPECIFIED (2) BPH (benign prostatic hyperplasia) Current Visit: Yes Status: Acute Assessment & Plan: - Flomax- restarted 03/11/24 per verbal order Code(s): N40.0 - BENIGN PROSTATIC HYPERPLASIA WITHOUT LOWER URINRY TRACT SYMP (3) HTN (hypertension) Current Visit: Yes Status: Acute Assessment & Plan: - BP stable- trend - Continue amlodipine Code(s): I10 - ESSENTIAL (PRIMARY) HYPERTENSION (4) Methamphetamine abuse Current Visit: Yes Status: Acute Assessment & Plan: - advised cessation - refuses treatment Code(s): F15.10 - OTHER STIMULANT ABUSE, UNCOMPLICATED - Discharge Discharge Date: 03/12/24 Disposition: Home, Self-Care Condition: Stable Prescriptions: New Tramadol HCl 50 mg [Ultram 50 mg] 50 mg PO QID PRN PRN 3 Days #12 tablet PRN Reason: Pain Continue Atorvastatin Calcium [Lipitor] 40 mg PO DAILY Tamsulosin HCl 0.4 mg [Flomax 0.4 MG] 0.4 mg PO DAILY Sumatriptan Succinate [Imitrex] 100 mg PO DAILY PRN PRN Reason: Headache Modafinil 100 mg [Provigil 100MG Tablet] 200 mg PO BID Amlodipine Besylate 5 mg [Norvasc 5 mg] 5 mg PO BID Additional Instructions: Patient is to follow up with for a colonoscopy as outpatient. Call office on wednesday03/13/24 and get an appt. Follow up with: NELDA CASTRO MD [Primary Care Provider] - Call for Appointment
[2024-03-12] MEDS: Provigil 100MG Tablet PO SCH (08:56)
[2024-03-12] MEDS: ZOCOR 20MG PO SCH (08:57)
[2024-03-12] MEDS: NORVASC 5 MG PO SCH (08:58)
[2024-03-12] MEDS: ULTRAM 50 MG PO PRN (08:59)
[2024-03-12] MEDS ORDERED: Flomax 0.4 MG PO SCH (10:00)
[2024-03-12 11:23] VITALS: BP 132/80; PULSE 76; RESP 20; TEMP 97.7; O2SAT 93
--- NOTE | 2024-03-13 08:27 | CONS ---
HISTORY: The patient presented through the night. He had been ill for 3 or 4 days. He is 53 years old. He is attended by a relative, who does not live with him but checks on him quite a bit. He lived in [place] until about 5 years ago. Ten years ago he had a colon resection in [place], and he did have 6 months of chemotherapy afterwards and then, about 5, 6 years ago he was told he had MS. He had a major episode but he did recover and now he has been suffering intermittently with his MS. He is tired, run down and difficult to be totally productive. Despite this, he has been getting along. He has never had bad GI episodes. He did have a little bit of diarrhea a few months ago, but the last 3 or 4 days he had killer diarrhea. It has let off now that he is in the hospital. They do have a prescription for stools but there have not been any stools since he has been in the hospital and it has been requested, so there are no stool samples yet. The relative was quite concerned, said he was really run down, has not been eating, taking anything for 3 days. He is obviously majorly dehydrated. His belly is moderately distended, it is mildly firm. He has some abdominal incisions that are well healed. He has no palpable mass. His CT scan suggests diffuse small bowel enteritis. IMPRESSION: 1) He did have colon cancer 10 years ago. He did not have any recent scopes in 7 or 8 years, so he does deserve to have a colonoscopy either this admission or shortly. 2) He has been diagnosed with major multiple sclerosis. 3) I think he does have an enteritis. Nobody else is ill in the family. He did eat some hot dogs that were a little interesting that day. We will see how this clears up and we will probably do a colonoscopy on him. INDICATIONS: See the operative chart.
== END 2024-03-12 12:30 | disposition home or self-care (01) ==
LOC: ED 19:12 → MED SURG 22:54
PROVIDERS: ADMIT Internal Medicine Critical Care Medicine; ATTEND Internal Medicine Critical Care Medicine
DX: K52.9 Noninfective gastroenteritis and colitis, unspecified (principal); R10.9 Unspecified abdominal pain; E86.0 Dehydration; R51.9 Headache, unspecified; I10 Essential (primary) hypertension; F15.10 Other stimulant abuse, uncomplicated; G35 Multiple sclerosis; Z85.048 Personal history of other malignant neoplasm of rectum, rectosigmoid junction, and anus; Z79.899 Other long term (current) drug therapy; N40.0 Benign prostatic hyperplasia without lower urinary tract symptoms
CPT/HCPCS: 36000; 36415; 74177; 80053; 80307; 81001; 83605; 83690; 83735; 85025; 85027; 87040; 96374; 96375; 99284; G0378; Q3014; J1170; J1956; J2270; J2405; A9270-GY

== ENCOUNTER 2024-05-24 06:03 | Day surgery (SDC) | payer MEDICARE ==
[2024-05-24 06:35] LABS: Absolute Neutrophil Ct (ANC) 5.55 x10^3/uL (1.78-5.38); BASOPHIL % 0.6 % (0.2-1.2); Basophil (Absolute #) 0.05 x10^3/uL (0.01-0.08); Eosinophil % 1.5 % (0.8-7.0); Eosinophil (Absolute #) 0.13 x10^3/uL (0.04-0.54); Hematocrit 41.1 % (40.1-51.0); Hemoglobin 14.1 g/dL (13.7-17.5); IMMATURE GRAN # 0.02 x10^3u/L (0.001-0.031); IMMATURE GRAN % 0.2 % (0.001-0.429); Lymphocytes % 24.5 % (21.8-53.1); Mean Cell Volume 94.7 fL (79.0-92.2); Mean Corpuscular Hemoglobin 32.5 pg (25.7-32.2); Mean Corpuscular Hgb Concent. 34.3 g/dL (32.3-36.5); Mean Platelet Volume 8.5 fL (9.4-12.4); Monocyte (Absolute #) 0.72 x10^3/uL (0.30-0.82); Monocytes % 8.4 % (5.3-12.2); Neutrophil % 64.8 % (34.0-67.9); Platelet Count 341 x10^3/uL (163-337); Red Blood Count 4.34 x10^6/uL (4.63-6.08); Red Cell Distribution Width 13.2 % (11.6-14.4); White Blood Count 8.6 x10^3/uL (4.23-9.07)
[2024-05-24 06:38] VITALS: RESP 18; O2SAT 97
[2024-05-24 06:49] LABS: ANION GAP 13.5 MEQ/L (5-15); Creatinine 1 0.88 mg/dL (0.66-1.25); EST GLOMERULAR FILTRATION RATE 102.2 ML/MIN
[2024-05-24 06:54] LABS: Calcium 9.7 mg/dL (8.4-10.2)
[2024-05-24] MEDS ORDERED: DIPRIVAN 200 MG/20 ML IV ONE (07:58)
[2024-05-24] MEDS ORDERED: Versed 2 MG/2 ML Injection ONE (07:59)
[2024-05-24] MEDS ORDERED: PHENYLEPHRINE HCL ONE (08:30)
[2024-05-24 09:24] VITALS: BP 117/77; PULSE 69; TEMP 98
--- NOTE | 2024-05-26 11:17 | OP ---
SURGERY DATE/TIME: 05/24/2024 [id number] PREOPERATIVE DIAGNOSIS: Personal history of colon cancer. POSTOPERATIVE DIAGNOSIS: Normal colon. PROCEDURE: Colonoscopy. SURGEON: Stuart Jones MD. ANESTHESIA: MAC by Vicente Puga CRNA. ESTIMATED BLOOD LOSS: None. SPECIMENS: None. DESCRIPTION OF PROCEDURE AND FINDINGS: After informed written consent was obtained, the patient was taken to the endoscopy suite. He was placed in the left lateral decubitus position and anesthesia was titrated to the desired level of consciousness. Digital rectal exam showed normal sphincter tone and no internal lesions. The scope was inserted in the rectum, and sequentially the entire colonic mucosa was traversed. The level of the cecum was reached and verified with direct visualization of the ileocecal valve. Upon withdrawal, careful mucosal inspection revealed no gross abnormalities, there were no masses, no polyps or evidence of any recurrence. Prior to withdrawal, retroflexion was performed and showed no internal lesions. Scope was removed. Patient was transferred to the recovery room in good condition.
== END 2024-05-24 09:24 | disposition home or self-care (01) ==
LOC: SDC 06:03
PROVIDERS: ATTEND Family Medicine
DX: Z08 Encounter for follow-up examination after completed treatment for malignant neoplasm (principal); Z85.038 Personal history of other malignant neoplasm of large intestine
CPT/HCPCS: 36415; 80048; 85025; 93005; J2250; J2371; J2704

== ENCOUNTER 2024-08-12 10:20 | Emergency (ER) | payer MEDICARE ==
[2024-08-12 10:33] VITALS: TEMP 99.9
--- NOTE | 2024-08-12 11:02 | ERPHSYRPT ---
- History of Present Illness Time Seen by Provider: 08/12/24 10:37 Source: patient Exam Limitations: no limitations Patient Subjective Stated Complaint: pt here for cough, aches, headache with possible fever,vomiting . has not taken tylenol or advil. Triage Nursing Assessment: pt alert, moaning out at times, resp easy, occ cough, skin w/d/p. moves all ext well, face mask in place Physician History: 54-year-old male with history of anxiety, hypertension, hyperlipidemia, migraine presented in the ER with complaints of aches and pains all over, headache, nonproductive cough, sore throat, sinus/nasal congestion. Denies any difficulty breathing. Reports nausea and 1 episode of vomiting earlier today. No abdominal pain. Subjective feeling of fever and chills. Allergies/Adverse Reactions: No Known Drug Allergies Allergy (Verified 08/12/24 10:41) Home Medications: Atorvastatin Calcium [Lipitor] 40 mg PO DAILY 04/14/21 [History] Tamsulosin HCl 0.4 mg [Flomax 0.4 MG] 0.4 mg PO DAILY 04/20/22 [History] Sumatriptan Succinate [Imitrex] 100 mg PO DAILY PRN 08/25/22 [History] Amlodipine Besylate 5 mg [Norvasc 5 mg] 5 mg PO BID 10/18/23 [History] Modafinil 100 mg [Provigil 100MG Tablet] 200 mg PO BID 10/18/23 [History] Pregabalin 75 mg PO BID 04/21/24 [History] Venlafaxine HCl ER 75 mg [Effexor XR 75 MG] 75 mg PO DAILY 04/21/24 [History] Hx Tetanus, Diphtheria Vaccination/Date Given: No Hx Influenza Vaccination/Date Given: Yes Hx Pneumococcal Vaccination/Date Given: No Immunizations Up to Date: Yes Travel Risk - International Travel Have you traveled outside of the country in past 3 weeks: No - Emerging Infectious Disease Are you exhibiting symptoms associated with any current EIDs: Yes Symptoms: Cough: New Onset, Vomitting - Review of Systems Constitutional: Fever, Chills, Fatigue Eyes: No Symptoms Ears, Nose, & Throat: Nose Congestion, Throat Pain Respiratory: Cough Cardiac: No Symptoms Abdominal/Gastrointestinal: Nausea, Vomiting Genitourinary Symptoms: No Symptoms Musculoskeletal: Myalgias Skin: No Symptoms Neurological: Headache Endocrine: No Symptoms Hematologic/Lymphatic: No Symptoms Immunological/Allergic: No Symptoms - Past Medical History Pertinent Past Medical History: Yes Neurological History: Migraines ENT History: No Pertinent History Cardiac History: High Cholesterol, Hypertension Respiratory History: No Pertinent History Endocrine Medical History: No Pertinent History Musculoskeletal History: Arthritis, Fractures GI Medical History: Colorectal Cancer History: No Pertinent History Psycho-Social History: Depression Male Reproductive Disorders: No Pertinent History Other Medical History: MS, 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 - Past Surgical History Past Surgical History: Yes Neuro Surgical History: No Pertinent History Cardiac: No Pertinent History Respiratory: No Pertinent History Gastrointestinal: Appendectomy, Colon Resection, Hernia Repair Genitourinary: No Pertinent History Musculoskeletal: Joint Replacement, Orthopedic Surgery Male Surgical History: No Pertinent History Other Surgical History: open repair right femur. right hip replacement. left knee replacement Significant Family History: no pertinent family hx - Social History Smoking Status: Former smoker Exposure to second hand smoke: No Drug Use: none - Social Determinants of Health Will the patient participate in the screening: Yes Do you worry about a steady place to live?: No Do you have any problems with any of the following?: No known problems In the past 12 months,have you had to go without utilities?: No Transportation Issues: No Has anyone in your support network made you feel unsafe?: No Have you or anyone in your house had to go w/o enough food: No - Nursing Vital Signs Nursing Vital Signs: Initial Vital Signs Pulse Rate 89 08/12/24 10:30 Respiratory Rate 17 08/12/24 10:30 Blood Pressure 147/87 08/12/24 10:30 O2 Sat by Pulse Oximetry 97 08/12/24 10:30 Pain Scale Pain Intensity 8 - Physical Exam General Appearance: no apparent distress, alert Eye Exam: PERRL/EOMI Ears, Nose, Throat Exam: moist mucous membranes, pharyngeal erythema Neck Exam: normal inspection, non-tender, supple, full range of motion Respiratory Exam: normal breath sounds, lungs clear Cardiovascular Exam: regular rate/rhythm, normal heart sounds Gastrointestinal/Abdomen Exam: soft, normal bowel sounds, No tenderness Back Exam: normal inspection Extremity Exam: normal inspection, normal range of motion Neurologic Exam: alert, oriented x 3, cooperative Skin Exam: normal color SpO2 Interpretation: normal SpO2: 97 O2 Delivery: Room Air Ordered Tests: Active Orders 24 hr Category Date Time Status CHEST 1 VIEW (PORTABLE) Stat Exams 08/12/24 10:57 Taken Medication Summary Discontinued Medications Generic Name Dose Route Start Last Admin Trade Name Nikki PRN Reason Stop Dose Admin Acetaminophen 975 mg 08/12/24 10:58 08/12/24 11:13 Acetaminophen 325 Mg Tablet PO 08/12/24 10:59 975 mg STAT STA Administration Acetaminophen Confirm 08/12/24 11:11 Acetaminophen 325 Mg Tablet Administered 08/12/24 11:12 Dose 975 mg .ROUTE .K-MED ONE Lab/Rad Data: Laboratory Results 08/12/24 Range/Units 11:30 Influenza Type A Ag POSITIVE A (NEGATIVE) Influenza Type B Ag NEGATIVE (NEGATIVE) RSV (PCR) NEGATIVE (NEGATIVE) SARS-CoV-2 (PCR) NEGATIVE (NEGATIVE) - Progress Progress: improved, re-examined Air Movement: good Progress Note: 08/12/24 13:12 54-year-old is evaluated in the ER for flulike symptoms. He is given Tylenol for symptomatic relief. Lungs clear to auscultation, not in any distress. Has positive influenza A, discussed with patient about Tamiflu and will send the prescription to the pharmacy. Chest x-ray negative for any acute cardiopulmonary findings reviewed by me, official report is pending. Recommended taking Tylenol/ibuprofen as needed, increase hydration and outp atient follow-up. Discussed signs symptoms of worsening needing return to ER which he seems understanding. Stable for discharge. Blood Culture(s) Obtained: No Antibiotics given: No Counseled pt/family regarding: lab results, diagnosis, rad results Medical Desision Making - Diagnostic Testing Diagnostic test were ordered, analyzed, and reviewed by me: Yes Radiological Interpretation: Interpreted by me, Reviewed by me - Risk of complications The pt has a mod risk of morbidity or mortality based on: Need for prescription drug management - Departure Departure Disposition: Home Clinical Impression: Influenza A Condition: Stable Critical Care Time: No Referrals: NELDA CASTRO MD [Primary Care Provider] - Follow up with PCP 1 day Instructions: Flu in adults - Discharge instructions Additional Instructions: Take Tylenol/ibuprofen as needed. Follow-up with primary care for reevaluation. Return to ER for any worsening. Prescriptions: Oseltamivir 75 mg [Tamiflu 75MG Capsule] 75 mg PO BID #10 cap
[2024-08-12] MEDS ORDERED: TYLENOL 325 MG ONE (11:11)
[2024-08-12] MEDS: TYLENOL 325 MG PO STA (11:13)
[2024-08-12 12:48] LABS: INFLUENZA B NEGATIVE (NEGATIVE); RESPIRATORY SYNCTIAL VIRUS NEGATIVE (NEGATIVE); SARS-CoV-2 Xpert Express NEGATIVE (NEGATIVE)
[2024-08-12 13:07] LABS: INFLUENZA A POSITIVE (NEGATIVE)
[2024-08-12 13:14] VITALS: O2SAT 97
[2024-08-12 13:17] VITALS: BP 128/82; PULSE 89; RESP 21
--- NOTE | 2024-08-12 23:35 | XRAY ---
Indication: Cough. Comparison: None Portable chest hyperinflated and clear. Heart not enlarged. Bony thorax intact with mild degenerative changes. No acute findings.
== END 2024-08-12 13:23 | disposition home or self-care (01) ==
LOC: ED 10:20
DX: J10.1 Influenza due to other identified influenza virus with other respiratory manifestations (principal); M79.10 Myalgia, unspecified site; R51.9 Headache, unspecified; R05.9 Cough, unspecified; R09.81 Nasal congestion; R11.2 Nausea with vomiting, unspecified; E78.5 Hyperlipidemia, unspecified; I10 Essential (primary) hypertension; Z79.899 Other long term (current) drug therapy
CPT/HCPCS: 0241U; 71045; 99284; 99283; A9270-GY

== ENCOUNTER 2024-09-26 13:07 | Emergency (ER) | payer MEDICARE ==
--- NOTE | 2024-09-26 13:09 | ERPHSYRPT ---
- History of Present Illness Time Seen by Provider: 09/26/24 13:08 Source: patient Exam Limitations: clinical condition Physician History: This is a 54-year-old white male patient of Dr. Castro who was brought to the emergency department by the nursing staff in the infusion center here at [facility]. Patient was receiving his first infusion of rituximab. He only received approximately 100 cc of the medication intravenously when he began complaining of chest tightness, shortness of breath and back pain. The patient was premedicated with Tylenol, IV steroids and 25 mg of intravenous Benadryl prior to receiving the medication. 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 He was receiving the medication to treat this condition. Patient has a history of hyperlipidemia, prostate issues, migraine headaches, hypertension, osteoarthritis and a history of colorectal cancer in the past. Timing/Duration: today Severity: moderate Associated Symptoms: shortness of breath, chest pain, other (Back pain) Allergies/Adverse Reactions: rituximab Allergy (Verified 09/26/24 13:10) Tightness in Chest Home Medications: Atorvastatin Calcium [Lipitor] 40 mg PO DAILY 04/14/21 [History] Tamsulosin HCl 0.4 mg [Flomax 0.4 MG] 0.4 mg PO DAILY 04/20/22 [History] Sumatriptan Succinate [Imitrex] 100 mg PO DAILY PRN 08/25/22 [History] Amlodipine Besylate 5 mg [Norvasc 5 mg] 5 mg PO BID 10/18/23 [History] Modafinil 100 mg [Provigil 100MG Tablet] 200 mg PO BID 10/18/23 [History] Pregabalin 75 mg PO BID 04/21/24 [History] Venlafaxine HCl ER 75 mg [Effexor XR 75 MG] 75 mg PO DAILY 04/21/24 [History] Hx Tetanus, Diphtheria Vaccination/Date Given: No Hx Influenza Vaccination/Date Given: Yes Hx Pneumococcal Vaccination/Date Given: No Travel Risk - International Travel Have you traveled outside of the country in past 3 weeks: No - Emerging Infectious Disease Are you exhibiting symptoms associated with any current EIDs: Yes Symptoms: Cough: New Onset, Vomitting - Review of Systems Constitutional: No Symptoms Eyes: No Symptoms Ears, Nose, & Throat: No Symptoms Respiratory: Dyspnea Cardiac: Chest Pain Abdominal/Gastrointestinal: No Symptoms Genitourinary Symptoms: No Symptoms Musculoskeletal: No Symptoms, Back Pain Skin: No Symptoms Neurological: No Symptoms Psychological: No Symptoms Endocrine: No Symptoms Hematologic/Lymphatic: No Symptoms Immunological/Allergic: No Symptoms All Other Systems: Reviewed and Negative - Past Medical History Pertinent Past Medical History: Yes Neurological History: Other ENT History: No Pertinent History Cardiac History: High Cholesterol, Hypertension Respiratory History: No Pertinent History Endocrine Medical History: Other Musculoskeletal History: Osteoarthritis GI Medical History: Colorectal Cancer History: No Pertinent History Psycho-Social History: Depression Male Reproductive Disorders: No Pertinent History Other Medical History: COLON CANCER, MOGAD, 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 5 SPINAL TAPS. 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 STOPPED SMOKING IN 2013. MRI AT [facility]. R MAY, L TKA. - Past Surgical History Past Surgical History: Yes Neuro Surgical History: No Pertinent History Cardiac: No Pertinent History Respiratory: No Pertinent History Gastrointestinal: Appendectomy, Colon Resection, Hernia Repair Genitourinary: No Pertinent History Musculoskeletal: Joint Replacement, Orthopedic Surgery Male Surgical History: No Pertinent History Other Surgical History: open repair right femur. right hip replacement. left knee replacement Significant Family History: no pertinent family hx - Social History Smoking Status: Former smoker Drug Use: none - Social Determinants of Health Will the patient participate in the screening: Yes Do you worry about a steady place to live?: No In the past 12 months,have you had to go without utilities?: No Transportation Issues: No Has anyone in your support network made you feel unsafe?: No Have you or anyone in your house had to go w/o enough food: No - Nursing Vital Signs Nursing Vital Signs: Initial Vital Signs Pulse Rate 100 H 09/26/24 13:04 Respiratory Rate 22 09/26/24 13:04 Blood Pressure 122/80 09/26/24 13:04 O2 Sat by Pulse Oximetry 100 09/26/24 13:04 Pain Scale Pain Intensity 10 - Physical Exam General Appearance: mild distress, alert, anxiety Eye Exam: PERRL/EOMI, eyes nml inspection Ears, Nose, Throat Exam: normal ENT inspection, moist mucous membranes Neck Exam: normal inspection, non-tender, supple, full range of motion Respiratory Exam: normal breath sounds, chest tenderness (Described as a tightness), lungs clear, airway intact, No respiratory distress Cardiovascular Exam: regular rate/rhythm, normal heart sounds, normal peripheral pulses Gastrointestinal/Abdomen Exam: soft, normal bowel sounds, No tenderness Rectal Exam: not done Back Exam: normal inspection, normal range of motion, No CVA tenderness, No vertebral tenderness Extremity Exam: normal inspection, normal range of motion, pelvis stable Neurologic Exam: alert, oriented x 3, cooperative, industrial photographer II-XII nml as tested, sensation nml Skin Exam: normal color, warm, dry Lymphatic Exam: No adenopathy SpO2 Interpretation: normal O2 Delivery: Room Air - Course Nursing assessment & vital signs reviewed: Yes EKG Interpreted by Me: RATE (96), Sinus Rhythm, NORMAL AXIS, NORMAL INTERVALS, NORMAL QRS, NORMAL ST-T, Other (QTc is 432. No acute ischemia on today's twelve-lead EKG) Ordered Tests: Active Orders 24 hr Category Date Time Status EKG-ER Only STAT Care 09/26/24 13:28 Active IV Insertion STAT Care 09/26/24 13:28 Active Pulse Oximetry (ED) STAT Care 09/26/24 13:28 Active CBC W DIFF Stat Lab 09/26/24 13:45 Completed CMP Stat Lab 09/26/24 13:45 Completed MAGNESIUM Stat Lab 09/26/24 13:45 Completed TROPONIN Q4H Lab 09/26/24 13:45 Completed TROPONIN Q4H Lab 09/26/24 17:30 Ordered TROPONIN Q4H Lab 09/26/24 21:30 Ordered Respiratory Therapy Assessment DAILY RT 09/26/24 13:23 Active Medication Summary Generic Name Dose Route Start Last Admin Trade Name Freq PRN Reason Stop Dose Admin Sodium Chloride 1,000 mls @ 100 mls/hr 09/26/24 13:30 09/26/24 14:11 Sodium Chloride 0.9% 1000 Ml IV 10/26/24 13:29 200 mls/hr .Q10H SANTIAGO Infusion Discontinued Medications Generic Name Dose Route Start Last Admin Trade Name Freq PRN Reason Stop Dose Admin Albuterol/Ipratropium Confirm 09/26/24 13:21 Ipratropium/Albuterol Sulfate 3 Ml Ampul.Neb Administered 09/26/24 13:22 Dose 3 ml IH .STK-MED ONE Albuterol/Ipratropium 3 ml 09/26/24 13:24 09/26/24 13:25 Ipratropium/Albuterol Sulfate 3 Ml Ampul.Neb IH 09/26/24 13:25 3 ml STAT ONE Administration Diphenhydramine HCl 50 mg 09/26/24 13:28 09/26/24 13:43 Diphenhydramine Hcl 50 Mg/Ml Vial IV 09/26/24 13:29 50 mg STAT ONE Administration Diphenhydramine HCl Confirm 09/26/24 13:32 Diphenhydramine Hcl 50 Mg/Ml Vial Administered 09/26/24 13:33 Dose 50 mg .ROUTE .STK-MED ONE Famotidine 40 mg 09/26/24 13:28 09/26/24 13:45 Famotidine 20 Mg/1 Vial IV 09/26/24 13:29 40 mg STAT ONE Administration Famotidine Confirm 09/26/24 13:32 Famotidine 20 Mg/1 Vial Administered 09/26/24 13:33 Dose 40 mg IV .STK-MED ONE Hydrocortisone Sodium Succinate 100 mg 09/26/24 13:28 09/26/24 13:47 Hydrocortisone Sod Succinate 100 Mg/Vial Vial IV 09/26/24 13:29 100 mg STAT ONE Administration Hydrocortisone Sodium Succinate Confirm 09/26/24 13:32 Hydrocortisone Sod Succinate 100 Mg/Vial Vial Administered 09/26/24 13:33 Dose 100 mg .ROUTE .STK-MED ONE Hydromorphone HCl 1 mg 09/26/24 14:29 09/26/24 14:34 Hydromorphone 1 Mg/1ml Inj IV 09/26/24 14:30 1 mg STAT ONE Administration Hydromorphone HCl Confirm 09/26/24 14:32 Hydromorphone 1 Mg/1ml Inj Administered 09/26/24 14:33 Dose 1 mg .ROUTE .STK-MED ONE Morphine Sulfate 4 mg 09/26/24 13:44 Morphine Sulfate 4 Mg/Ml Injection IV 09/26/24 13:45 STAT ONE Ondansetron HCl 4 mg 09/26/24 13:28 09/26/24 13:42 Ondansetron Hcl 4 Mg/2 Ml Vial IV 09/26/24 13:29 4 mg STAT ONE Administration Ondansetron HCl Confirm 09/26/24 13:32 Ondansetron Hcl 4 Mg/2 Ml Vial Administered 09/26/24 13:33 Dose 4 mg .ROUTE .[employer]-MED ONE Sterile Water Confirm 09/26/24 13:38 Water For Injection,Sterile 10 Ml Vial Administered 09/26/24 13:39 Dose 10 ml IJ .[employer] GreenK-MED ONE Lab/Rad Data: Laboratory Result Diagrams 09/26/24 13:45 09/26/24 13:45 Laboratory Results 09/26/24 09/26/24 09/26/24 Range/Units 13:45 13:45 13:45 WBC 11.0 H (4.23-9.07) x10^3/uL RBC 4.13 L (4.63-6.08) x10^6/uL Hgb 13.4 L (13.7-17.5) g/dL Hct 38.4 L (40.1-51.0) % MCV 93.0 H (79.0-92.2) fL MCH 32.4 H (25.7-32.2) pg MCHC 34.9 (32.3-36.5) g/dL RDW 13.0 (11.6-14.4) % Plt Count 275 (163-337) x10^3/uL MPV 9.1 L (9.4-12.4) fL Gran % 92.5 H (34.0-67.9) % Immature Gran % (Auto) 0.4 (0.001-0.429) % Nucleat RBC Rel Count 0.0 (0.00-0.2) % Eos # (Auto) 0 L (0.04-0.54) x10^3/uL Immature Gran # (Auto) 0.04 H (0.001-0.031) x10^3u/L Absolute Lymphs (auto) 0.46 L (1.32-3.57) x10^3/uL Absolute Monos (auto) 0.30 (0.30-0.82) x10^3/uL Absolute Nucleated RBC 0.00 (0.00-0.012) x10^3u/L Lymphocytes % 4.2 L (21.8-53.1) % Monocytes % 2.7 L (5.3-12.2) % Eosinophils % 0.0 L (0.8-7.0) % Basophils % 0.2 (0.2-1.2) % Absolute Granulocytes 10.20 H (1.78-5.38) x10^3/uL Basophils # 0.02 (0.01-0.08) x10^3/uL Sodium 138 (135-145) mmol/L Potassium 3.9 (3.5-5.1) mmol/L Chloride 108 H (98-107) mmol/L Carbon Dioxide 20 L (22-30) mmol/L Anion Gap 14.1 (5-15) MEQ/L BUN 21 H (9-20) mg/dL Creatinine 0.87 (0.66-1.25) mg/dL Estimated GFR 101.9 ML/MIN Glucose 203 H (74-106) mg/dL Calcium 9.3 (8.4-10.2) mg/dL Magnesium 1.6 (1.6-2.3) mg/dL Total Bilirubin 0.40 (0.2-1.3) mg/dL AST 31 (17-59) U/L ALT 25 (0-50) U/L Alkaline Phosphatase 96 (38-126) U/L Troponin I < 0.012 (0.000-0.033) ng/mL Serum Total Protein 6.8 (6.3-8.2) g/dL Albumin 4.2 (3.5-5.0) g/dL Slides for Path Review YES - Progress Progress: improved Progress Note: 09/26/24 13:40 My medical decision making of the assignment of moderate complexity to this patient's medical issue today is based on review the patient's past medical history, review the patient's medication list, reviewed patient drug allergy list, history present illness and physical findings on examination. The workup in this patient includes placement of intravenous line, infusion of hydrocortisone 100 mg intravenously, intravenous infusion of 50 mg of Benadryl, infusion of 40 mg of intravenous Pepcid, providing the patient with albuterol nebulizer treatment. In addition we ordered a CBC, CMP, troponin level, magnesium level and performed a twelve-lead EKG. Differential diagnosis includes but is not limited to myocardial infarction, allergic reaction to medication, electrolyte abnormalities, arrhythmias 09/26/24 14:28 The patient is complaining of back pain. I did write an order for morphine 4 mg intravenously. However, the patient states that that does not work for him. We will provide him with a 1 mg IV Dilaudid dose. He states that works best for his back pain. We will get a hold of his emergency contact to make certain he has a ride home first. 09/26/24 14:53 I interpreted the patient's laboratory data results. The results do not show an acute, emergent medical issue. Patient has chronic low back pain. His symptoms have improved. He will contact the infusion clinic to determine whether or not the prescribing provider wants him to continue with this medication. Counseled pt/family regarding: lab results, diagnosis, need for follow-up Medical Desision Making - Diagnostic Testing Diagnostic test were ordered, analyzed, and reviewed by me: Yes Radiological Interpretation: Reviewed by me, Teleradiologist Report - Risk of complications The pt has a mod risk of morbidity or mortality based on: Need for prescription drug management - Departure Departure Disposition: Home Clinical Impression: Adverse effect of rituximab infusion Condition: Stable Critical Care Time: No Referrals: NELDA CASTRO MD [Primary Care Provider] - Follow up/PCP as directed Additional Instructions: Drink plenty of fluids. Hold on the rituximab for now. Contact your prescribing provider to determine if and when you are to continue that infusion medication. Take Benadryl 25 mg orally 3 times a day for 5 days. Prescriptions: Prednisone 10 mg [Deltasone 10 mg] 10 mg PO TID #12 tablet Famotidine 20 mg [Pepcid 20 MG] 20 mg PO DAILY #10 tablet
[2024-09-26] MEDS ORDERED: DUONEB 0.5-3 MG/3 ml Neb IH ONE (13:21)
[2024-09-26] MEDS: DUONEB 0.5-3 MG/3 ml Neb IH ONE (13:25)
[2024-09-26 13:29] VITALS: TEMP 98.1
[2024-09-26] MEDS ORDERED: solu-CORTEF 100MG ONE (13:32)
[2024-09-26] MEDS ORDERED: Pepcid 20 MG VIAL IV ONE (13:32)
[2024-09-26] MEDS ORDERED: BENADRYL 50 MG/ML ONE (13:32)
[2024-09-26] MEDS ORDERED: Zofran 4 MG/2 ML VIAL ONE (13:32)
[2024-09-26] MEDS ORDERED: Sodium Chloride 0.9% 1000 ML 1,000 ML ONE (13:32)
[2024-09-26] MEDS ORDERED: Sterile H2O 10 ml IJ ONE (13:38)
[2024-09-26] MEDS: Sodium Chloride 0.9% 1000 ML 1,000 ML IV SCH (13:41)
[2024-09-26] MEDS: Zofran 4 MG/2 ML VIAL IV ONE (13:42)
[2024-09-26] MEDS: BENADRYL 50 MG/ML IV ONE (13:43)
[2024-09-26] MEDS: Pepcid 20 MG VIAL IV ONE (13:45)
[2024-09-26 13:46] LABS: BASOPHIL % 0.2 % (0.2-1.2); Basophil (Absolute #) 0.02 x10^3/uL (0.01-0.08); Eosinophil (Absolute #) 0 x10^3/uL (0.04-0.54); Hematocrit 38.4 % (40.1-51.0); Hemoglobin 13.4 g/dL (13.7-17.5); IMMATURE GRAN # 0.04 x10^3u/L (0.001-0.031); IMMATURE GRAN % 0.4 % (0.001-0.429); Lymphocyte (Absolute #) 0.46 x10^3/uL (1.32-3.57); Lymphocytes % 4.2 % (21.8-53.1); Mean Corpuscular Hemoglobin 32.4 pg (25.7-32.2); Mean Corpuscular Hgb Concent. 34.9 g/dL (32.3-36.5); Mean Platelet Volume 9.1 fL (9.4-12.4); Monocytes % 2.7 % (5.3-12.2); Neutrophil % 92.5 % (34.0-67.9); Platelet Count 275 x10^3/uL (163-337); Red Blood Count 4.13 x10^6/uL (4.63-6.08)
[2024-09-26] MEDS: solu-CORTEF 100MG IV ONE (13:47)
[2024-09-26 14:03] LABS: ALBUMIN 4.2 g/dL (3.5-5.0); ANION GAP 14.1 MEQ/L (5-15); BILIRUBIN,TOTAL 0.4 mg/dL (0.2-1.3); Calcium 9.3 mg/dL (8.4-10.2); Creatinine 1 0.87 mg/dL (0.66-1.25); EST GLOMERULAR FILTRATION RATE 101.9 ML/MIN; MAGNESIUM 1.6 mg/dL (1.6-2.3); Potassium 3.9 mmol/L (3.5-5.1); Total Protein 6.8 g/dL (6.3-8.2)
[2024-09-26 14:14] VITALS: PULSE 109
[2024-09-26 14:23] LABS: Slide Review 1 YES
[2024-09-26] MEDS ORDERED: Hydromorphone 1 mg/ml Injection ONE (14:32)
[2024-09-26] MEDS: Hydromorphone 1 mg/ml Injection IV ONE (14:34)
[2024-09-26] MEDS: MORPHINE SULFATE 4 MG INJ IV ONE (15:02)
[2024-09-26 15:03] VITALS: BP 103/75; RESP 12; O2SAT 91
== END 2024-09-26 15:08 | disposition home or self-care (01) ==
LOC: ED 13:07
DX: R06.02 Shortness of breath (principal); T45.1X5A Adverse effect of antineoplastic and immunosuppressive drugs, initial encounter; Y92.538 Other ambulatory health services establishments as the place of occurrence of the external cause; R07.9 Chest pain, unspecified; M54.9 Dorsalgia, unspecified; G37.81 Myelin oligodendrocyte glycoprotein antibody disease; E78.5 Hyperlipidemia, unspecified; I10 Essential (primary) hypertension; Z79.52 Long term (current) use of systemic steroids; Z79.899 Other long term (current) drug therapy
CPT/HCPCS: 36415; 80053; 83735; 84484; 85025; 93005; 94640; 94760; 96361; 96374; 96375; 99284; J1171; J1200; J1720; J2405; A9270-GY

== ENCOUNTER 2025-02-27 07:50 | Observation (INO) | payer MEDICARE ==
[2025-02-27] MEDS ORDERED: TORAdol 30 mg Injection ONE (08:27)
[2025-02-27] MEDS ORDERED: Zofran 4 MG/2 ML VIAL ONE (08:27)
[2025-02-27] MEDS: Zofran 4 MG/2 ML VIAL IV ONE (08:28)
[2025-02-27] MEDS: TORAdol 30 mg Injection IV ONE (08:28)
[2025-02-27 08:30] LABS: BASOPHIL % 0.7 % (0.2-1.2); Basophil (Absolute #) 0.04 x10^3/uL (0.01-0.08); Eosinophil (Absolute #) 0.22 x10^3/uL (0.04-0.54); Hematocrit 30.4 % (40.1-51.0); Hemoglobin 10.3 g/dL (13.7-17.5); IMMATURE GRAN # 0.01 x10^3u/L (0.001-0.031); IMMATURE GRAN % 0.2 % (0.001-0.429); Lymphocyte (Absolute #) 1.08 x10^3/uL (1.32-3.57); Mean Corpuscular Hemoglobin 33.4 pg (25.7-32.2); Mean Corpuscular Hgb Concent. 33.9 g/dL (32.3-36.5); Monocyte (Absolute #) 0.96 x10^3/uL (0.30-0.82); NUCLEATED RBC # 0.00 x10^3u/L (0.00-0.012); NUCLEATED RBC % 0.0 % (0.00-0.2); Platelet Count 247 x10^3/uL (163-337); Red Blood Count 3.08 x10^6/uL (4.63-6.08); White Blood Count 5.6 x10^3/uL (4.23-9.07)
--- NOTE | 2025-02-27 08:36 | ERPHSYRPT ---
- History of Present Illness Time Seen by Provider: 02/27/25 08:00 Source: patient Exam Limitations: no limitations Patient Subjective Stated Complaint: patient stated he started testosterone injection for the first time 3 days ago and then started having diarrhea, patient then noticed this morning he was having dark/tarry stools, patient complains of fatigue Triage Nursing Assessment: patient presents to ed with complaints of diarrhea/dark tarry stools, patient alert and oriented x 4, patient tachycardic upon arrival with heart rate of 110, all other vitals wnl, patient appears pale, abdomen soft/non distended, bowel sounds active x4 quadrants, patient complains of fatigue Physician History: Patient is a 54-year-old male history of hypertension hyperlipidemia, MOGAD, depression, colorectal cancer with resection 2013 and chemotherapy, former smoker presents to our ED for evaluation of diarrhea which he describes as dark and tarry. Patient complains of fatigue. Patient advises that he started testosterone injections for the first time 3 days ago. Diarrhea started after testosterone was initiated. Patient additionally complains of lower abdominal pain that is constant. No trauma no fever. Mild nausea. Symptoms are progressive. Symptoms are moderate in intensity. No specific worsening or improving factors. Patient voices no other complaints or concerns at this time. Portions of this note were created with voice recognition technology. There may be grammatical, spelling, punctuation or sound alike errors Timing/Duration: day(s) (3 days) Severity: moderate Modifying Factors: Improves With: nothing Associated Symptoms: nausea, abdominal pain, other (Fatigue) Allergies/Adverse Reactions: rituximab Allergy (Verified 02/27/25 07:57) Tightness in Chest will pre medicate prior to infusion Home Medications: Atorvastatin Calcium [Lipitor] 40 mg PO DAILY 04/14/21 [History] Tamsulosin HCl 0.4 mg [Flomax 0.4 MG] 0.4 mg PO DAILY 04/20/22 [History] Sumatriptan Succinate [Imitrex] 100 mg PO DAILY PRN 08/25/22 [History] Amlodipine Besylate 5 mg [Norvasc 5 mg] 5 mg PO BID 10/18/23 [History] Modafinil 100 mg [Provigil 100MG Tablet] 200 mg PO BID 10/18/23 [History] Pregabalin 75 mg PO BID 04/21/24 [History] Venlafaxine HCl ER 75 mg [Effexor XR 75 MG] 75 mg PO DAILY 04/21/24 [History] Hx Tetanus, Diphtheria Vaccination/Date Given: Yes Hx Influenza Vaccination/Date Given: Yes Hx Pneumococcal Vaccination/Date Given: No Travel Risk - International Travel Have you traveled outside of the country in past 3 weeks: No - Emerging Infectious Disease Are you exhibiting symptoms associated with any current EIDs: No Symptoms: Cough: New Onset, Vomitting - Review of Systems Constitutional: No Symptoms, No Fever, No Chills Eyes: No Symptoms Ears, Nose, & Throat: No Symptoms Respiratory: No Symptoms, No Cough, No Dyspnea Cardiac: No Symptoms, No Chest Pain, No Edema, No Syncope Abdominal/Gastrointestinal: No Symptoms, No Abdominal Pain, No Nausea, No Vomiting, No Diarrhea Genitourinary Symptoms: No Symptoms, No Dysuria Musculoskeletal: No Symptoms, No Back Pain, No Neck Pain Skin: No Symptoms, No Rash Neurological: No Symptoms, No Dizziness, No Focal Weakness, No Sensory Changes Psychological: No Symptoms Endocrine: No Symptoms Hematologic/Lymphatic: No Symptoms Immunological/Allergic: No Symptoms All Other Systems: Reviewed and Negative - Past Medical History Pertinent Past Medical History: Yes Neurological History: Other ENT History: No Pertinent History Cardiac History: High Cholesterol, Hypertension Respiratory History: No Pertinent History Endocrine Medical History: Other Musculoskeletal History: Osteoarthritis GI Medical History: Colorectal Cancer History: No Pertinent History Psycho-Social History: Depression Male Reproductive Disorders: No Pertinent History Other Medical History: COLON CANCER, MOGAD- finished radiation/chemo in 2016 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 5 SPINAL TAPS. 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 STOPPED SMOKING IN 2013. MRI AT [facility]. R MAY, L TKA. - Past Surgical History Past Surgical History: Yes Neuro Surgical History: No Pertinent History Cardiac: No Pertinent History Respiratory: No Pertinent History Gastrointestinal: Appendectomy, Colon Resection, Hernia Repair Genitourinary: No Pertinent History Musculoskeletal: Joint Replacement, Orthopedic Surgery Male Surgical History: No Pertinent History Other Surgical History: open repair right femur. right hip replacement. left knee replacement Significant Family History: no pertinent family hx - Social History Smoking Status: Never smoker Exposure to second hand smoke: No Drug Use: none - Social Determinants of Health Will the patient participate in the screening: Yes Do you worry about a steady place to live?: No Do you have any problems with any of the following?: No known problems In the past 12 months,have you had to go without utilities?: No Transportation Issues: No Has anyone in your support network made you feel unsafe?: No Have you or anyone in your house had to go w/o enough food: No - Nursing Vital Signs Nursing Vital Signs: Initial Vital Signs Temperature 97.3 F 02/27/25 07:50 Pulse Rate 110 H 02/27/25 07:50 Respiratory Rate 16 02/27/25 07:50 Blood Pressure 143/81 02/27/25 07:50 O2 Sat by Pulse Oximetry 98 02/27/25 07:50 Pain Scale Pain Intensity 0 - Physical Exam General Appearance: no apparent distress, alert Eye Exam: PERRL/EOMI, eyes nml inspection Ears, Nose, Throat Exam: normal ENT inspection, moist mucous membranes Neck Exam: normal inspection, full range of motion Respiratory Exam: normal breath sounds, lungs clear, airway intact, No respiratory distress Cardiovascular Exam: regular rate/rhythm, normal heart sounds Gastrointestinal/Abdomen Exam: soft, tenderness (Lower abdominal tenderness), No mass Back Exam: normal inspection, normal range of motion, No CVA tenderness, No vertebral tenderness Extremity Exam: normal inspection, normal range of motion, pelvis stable Neurologic Exam: alert, oriented x 3, cooperative, normal mood/affect, sensation nml, No motor deficits Skin Exam: normal color, warm, dry, No rash Lymphatic Exam: No adenopathy SpO2 Interpretation: normal SpO2: 98 O2 Delivery: Room Air - Course Nursing assessment & vital signs reviewed: Yes EKG Interpreted by Me: RATE (94), Sinus Rhythm, NORMAL AXIS, NORMAL INTERVALS, NORMAL QRS - CT Exams Abdomen/Pelvis CT Interpretation: Tele-radiologist Report (Beam artifact right hip. Chronic findings observed) Ordered Tests: Active Orders 24 hr Category Date Time Status Hearing Aide Technician STAT Care 02/27/25 08:49 Active EKG-ER Only STAT Care 02/27/25 08:49 Active IV Insertion STAT Care 02/27/25 08:23 Active ABDOMEN AND PELVIS W CONTRAST [CT] Stat Exams 02/27/25 08:24 Completed CBC W DIFF Stat Lab 02/27/25 08:09 Completed CMP Stat Lab 02/27/25 08:09 Completed LIPASE Stat Lab 02/27/25 08:09 Completed TROPONIN Q4H Lab 02/27/25 08:09 Completed TROPONIN Q4H Lab 02/27/25 12:30 Ordered TROPONIN Q4H Lab 02/27/25 16:30 Ordered UA W/RFX UR CULTURE Stat Lab 02/27/25 08:24 Completed Medication Summary Generic Name Dose Route Start Last Admin Trade Name Nikki PRN Reason Stop Dose Admin Sodium Chloride 1,000 mls @ 100 mls/hr 02/27/25 08:30 02/27/25 08:28 Sodium Chloride 0.9% 1000 Ml IV 03/29/25 08:29 100 mls/hr .Q10H SANTIAGO Administration Discontinued Medications Generic Name Dose Route Start Last Admin Trade Name Freq PRN Reason Stop Dose Admin Ketorolac Tromethamine 30 mg 02/27/25 08:23 02/27/25 08:28 Ketorolac Tromethamine 30 Mg/Ml Inj IV 02/27/25 08:24 30 mg STAT ONE Administration Ketorolac Tromethamine Confirm 02/27/25 08:27 Ketorolac Tromethamine 30 Mg/Ml Inj Administered 02/27/25 08:28 Dose 30 mg .ROUTE .STK-MED ONE Ondansetron HCl 4 mg 02/27/25 08:23 02/27/25 08:28 Ondansetron Hcl 4 Mg/2 Ml Vial IV 02/27/25 08:24 4 mg STAT ONE Administration Ondansetron HCl Confirm 02/27/25 08:27 Ondansetron Hcl 4 Mg/2 Ml Vial Administered 02/27/25 08:28 Dose 4 mg .ROUTE .STK-MED ONE Pantoprazole Sodium 40 mg 02/27/25 11:44 02/27/25 11:50 Pantoprazole 40 Mg Vial IV 02/27/25 11:45 40 mg STAT ONE Administration Pantoprazole Sodium Confirm 02/27/25 11:49 Pantoprazole 40 Mg Vial Administered 02/27/25 11:50 Dose 40 mg IV .STK-MED ONE Lab/Rad Data: Laboratory Result Diagrams 02/27/25 08:09 02/27/25 08:09 Laboratory Results 02/27/25 02/27/25 02/27/25 Range/Units 08:24 08:09 08:09 WBC (4.23-9.07) x10^3/uL RBC (4.63-6.08) x10^6/uL Hgb (13.7-17.5) g/dL Hct (40.1-51.0) % MCV (79.0-92.2) fL MCH (25.7-32.2) pg MCHC (32.3-36.5) g/dL RDW (11.6-14.4) % Plt Count (163-337) x10^3/uL MPV (9.4-12.4) fL Gran % (34.0-67.9) % Immature Gran % (Auto) (0.001-0.429) % Nucleat RBC Rel Count (0.00-0.2) % Eos # (Auto) (0.04-0.54) x10^3/uL Immature Gran # (Auto) (0.001-0.031) x10^3u/L Absolute Lymphs (auto) (1.32-3.57) x10^3/uL Absolute Monos (auto) (0.30-0.82) x10^3/uL Absolute Nucleated RBC (0.00-0.012) x10^3u/L Lymphocytes % (21.8-53.1) % Monocytes % (5.3-12.2) % Eosinophils % (0.8-7.0) % Basophils % (0.2-1.2) % Absolute Granulocytes (1.78-5.38) x10^3/uL Basophils # (0.01-0.08) x10^3/uL Sodium 141 (135-145) mmol/L Potassium 3.5 (3.5-5.1) mmol/L Chloride 111 H (98-107) mmol/L Carbon Dioxide 23 (22-30) mmol/L Anion Gap 10.3 (5-15) MEQ/L BUN 13 (9-20) mg/dL Creatinine 0.84 (0.66-1.25) mg/dL Estimated GFR 103.0 ML/MIN Glucose 106 (74-106) mg/dL Calcium 8.4 (8.4-10.2) mg/dL Total Bilirubin 0.20 (0.2-1.3) mg/dL AST 47 (17-59) U/L ALT 29 (0-50) U/L Alkaline Phosphatase 89 (38-126) U/L Troponin I < 0.012 (0.000-0.033) ng/mL Serum Total Protein 5.5 L (6.3-8.2) g/dL Albumin 3.3 L (3.5-5.0) g/dL Lipase 60 (23-300) U/L Urine Color Yellow (Yellow) Urine Appearance Clear (Clear) Urine pH 6.0 (4.6-8.0) Ur Specific [place] >=1.030 A (1.005-1.030) Urine Protein Trace A (Negative) Urine Glucose (UA) Negative (Negative) mg/dL Urine Ketones 40 A (Negative) Urine Blood Negative (Negative) Urine Nitrite Negative (Negative) Urine Bilirubin Negative (Negative) Urine Urobilinogen 1.0 A (0.2) mg/dL Ur Leukocyte Esterase Negative (Negative) U Hyaline Cast (Auto) NONE SEEN (0-2) /LPF Urine Microscopic RBC 0-2 (0-5) /HPF Urine Microscopic WBC 0-2 (0-5) /HPF Ur Epithelial Cells None Seen (None Seen) /HPF Urine Bacteria None Seen (None Seen) /HPF Urine Culture Reflexed NO (NO) 02/27/25 Range/Units 08:09 WBC 5.6 (4.23-9.07) x10^3/uL RBC 3.08 L (4.63-6.08) x10^6/uL Hgb 10.3 L (13.7-17.5) g/dL Hct 30.4 L (40.1-51.0) % MCV 98.7 H (79.0-92.2) fL MCH 33.4 H (25.7-32.2) pg MCHC 33.9 (32.3-36.5) g/dL RDW 13.5 (11.6-14.4) % Plt Count 247 (163-337) x10^3/uL MPV 9.0 L (9.4-12.4) fL Gran % 58.8 (34.0-67.9) % Immature Gran % (Auto) 0.2 (0.001-0.429) % Nucleat RBC Rel Count 0.0 (0.00-0.2) % Eos # (Auto) 0.22 (0.04-0.54) x10^3/uL Immature Gran # (Auto) 0.01 (0.001-0.031) x10^3u/L Absolute Lymphs (auto) 1.08 L (1.32-3.57) x10^3/uL Absolute Monos (auto) 0.96 H (0.30-0.82) x10^3/uL Absolute Nucleated RBC 0.00 (0.00-0.012) x10^3u/L Lymphocytes % 19.3 L (21.8-53.1) % Monocytes % 17.1 H (5.3-12.2) % Eosinophils % 3.9 (0.8-7.0) % Basophils % 0.7 (0.2-1.2) % Absolute Granulocytes 3.29 (1.78-5.38) x10^3/uL Basophils # 0.04 (0.01-0.08) x10^3/uL Sodium (135-145) mmol/L Potassium (3.5-5.1) mmol/L Chloride (98-107) mmol/L Carbon Dioxide (22-30) mmol/L Anion Gap (5-15) MEQ/L BUN (9-20) mg/dL Creatinine (0.66-1.25) mg/dL Estimated GFR ML/MIN Glucose (74-106) mg/dL Calcium (8.4-10.2) mg/dL Total Bilirubin (0.2-1.3) mg/dL AST (17-59) U/L ALT (0-50) U/L Alkaline Phosphatase (38-126) U/L Troponin I (0.000-0.033) ng/mL Serum Total Protein (6.3-8.2) g/dL Albumin (3.5-5.0) g/dL Lipase (23-300) U/L Urine Color (Yellow) Urine Appearance (Clear) Urine pH (4.6-8.0) Ur Specific [place] (1.005-1.030) Urine Protein (Negative) Urine Glucose (UA) (Negative) mg/dL Urine Ketones (Negative) Urine Blood (Negative) Urine Nitrite (Negative) Urine Bilirubin (Negative) Urine Urobilinogen (0.2) mg/dL Ur Leukocyte Esterase (Negative) U Hyaline Cast (Auto) (0-2) /LPF Urine Microscopic RBC (0-5) /HPF Urine Microscopic WBC (0-5) /HPF Ur Epithelial Cells (None Seen) /HPF Urine Bacteria (None Seen) /HPF Urine Culture Reflexed (NO) - Progress Progress: improved Progress Note: 02/27/25 08:53 Patient is a 54-year-old male history of hypertension hyperlipidemia, MOGAD, depression, colorectal cancer with resection 2013 and chemotherapy, former smoker presents to our ED for evaluation of dark tarry diarrhea, abdominal pain and fatigue. Laboratory workup reveals a 3 g hemoglobin drop over the past [address] abdomen pelvis negative for acute intra abdominal pathology. Patient reassessed. He is resting. No active pain. Vitals are stable. We contacted patient's primary care doctor, Dr. Castro who will see patient tomorrow in his office at 9:30 AM to arrange further evaluation/colonoscopy 02/27/25 11:46 Patient reassessed. Patient reports that he feels too weak to go home. We will instead admit patient to our hospital to obtain an inpatient/urgent colonoscopy Differential diagnosis includes GI bleed, recurrence of colorectal cancer, diverticulitis I considered ordering octreotide however there is no active bleed at this time. We will hold off on octreotide History obtained from patient Complexity of problem addressed is moderate acute complicated. No critical care time. Complexity of data reviewed and analyzed extensive. Test ordered test reviewed results analyzed and correlated clinically with history and physical exam. Management discussed with patient's primary care provider Dr. Castro as well as hospitalist. Patient will be admitted to the hospital for further evaluation and treatment. Risk of complication and or risk of morbidity/mortality of patient management is high. Patient requires hospitalization for further evaluation and treatment. Vital stable. Time spent admit patient is approximately 20 minutes. Plan of care established for shared decision making. No social determinants of health present impede follow-up. Of note we spoke to general surgery service Lexy Surgery RN covering the surgical service. They state that they will be able to do the colonoscopy as an inpatient. Portions of this note were created with voice recognition technology. There may be grammatical, spelling, punctuation or sound alike errors 02/27/25 11:49 Case discussed with hospitalist Dr. Driver At 1201. Dr. Driver accepts admission to observation. 02/27/25 12:03 Counseled pt/family regarding: lab results, diagnosis, rad results - Departure Departure Disposition: Observation Clinical Impression: Diarrhea, Dark tarry stool, Fatigue, Nausea, Abdominal pain, GI bleed, Macrocytic anemia Condition: Stable Critical Care Time: No Referrals: NELAD CASTRO MD [Primary Care Provider, [facility]] - Follow up/PCP as directed Additional Instructions: Discharge/Care Plan JALEN MORA was seen on 02/27/25 in the Emergency Room. The patient was counseled regarding Diagnosis,Lab results, Imaging studies, need for follow up and when to return to the Emergency Room. Prescriptions given: Discharge Note I have spoken with the patient and/or caregivers. I have explained the patient's condition, diagnosis and treatment plan based on the information available to me at this time. I have answered the patient's and/or caregiver's questions and addressed any concerns. The patient and/or caregivers have as good understanding of the patient's diagnosis, condition and treatment plan as can be expected at this point. The vital signs have been stable. The patient's condition is stable and appropriate for discharge from the emergency department. The patient will pursue further outpatient evaluation with the primary care physician or other designated or consulting physician as outlined in the discharge instructions. The patient and/or caregivers are agreeable to this plan of care and follow-up instructions have been explained in detail. The patient and/or caregivers have received these instruction. The patient/and or caregivers are aware that any significant change in condition or worsening of symptoms should prompt an immediate return to this or the closest emergency department or call 911.
[2025-02-27 08:38] LABS: Calcium 8.4 mg/dL (8.4-10.2); Carbon Dioxide 23.0 mmol/L (22-30); Creatinine 1 0.84 mg/dL (0.66-1.25); EST GLOMERULAR FILTRATION RATE 103.0 ML/MIN; Glucose 106.0 mg/dL (74-106); Potassium 3.5 mmol/L (3.5-5.1); SGOT/AST 47.0 U/L (17-59); SGPT/ALT 29.0 U/L (0-50); Total Protein 5.5 g/dL (6.3-8.2)
[2025-02-27 10:54] LABS: Glucose, Urine Negative (Negative); Protein,Urine Dip Trace (Negative); RBC 0-2 /HPF (0-5); WBC 0-2 /HPF (0-5)
--- NOTE | 2025-02-27 10:55 | XRAY ---
Indication: Pain. History colon cancer with resection. Multiple contiguous axial images obtained through the abdomen and pelvis using 80 cc Isovue 370 contrast. Comparison: March 10, 2024 Lung bases remain clear. Heart not enlarged. Again beam artifact from right hip arthroplasty. Stomach now distended with food/fluid. Gallbladder contracted without gallstones. Radiopacities throughout colon presumed ingested medication, bismuth, or barium. Again intact sigmoid anastomosis and appendectomy. Both kidneys enhance and excrete. No free fluid/air. Remaining liver, gallbladder, pancreas, spleen, adrenal glands, kidneys, ureters, and bladder are unremarkable. There remains mild scattered aortoiliac calcifications. No AAA or pathologic retroperitoneal lymphadenopathy. Osseous structures intact again with mild degenerative changes throughout spine and minimal lumbar levoscoliosis. No suspicious bony lesions. Impression: 1. Again beam artifact from right hip arthroplasty. 2. Chronic findings including arteriosclerotic disease and chronic bony findings. 3. Remaining CT abdomen/pelvis with contrast exam is negative.
[2025-02-27] MEDS ORDERED: PROTONIX 40 MG IV IV ONE (11:49)
[2025-02-27] MEDS: PROTONIX 40 MG IV IV ONE (11:50)
[2025-02-27 12:58] LABS: ABO TYPING O; RH TYPING POSITIVE
--- NOTE | 2025-02-27 13:53 | PCM.HP ---
History of Present Illness - Chief Complaint Chief Complaint: Diarrhea/gi bleed Date: 02/27/25 History of Present Illness: is a 54 year old male with a past medical history of hyperlipidemia, hypertension, colorectal cancer status-post resection, depression,Mogad, and osteoarthritis. He presented to the ED 02/27/25 with three days of diffuse, sharp/crampy lower abdominal pain (7/10 in intensity) accompanied by >15 episodes of soft, non-watery diarrhea daily. He denies nausea, vomiting, or fever. He reports taking Pepto-Bismol yesterday, after which he noted black, tarry stools that prompted his ED visit. He also endorses a sore throat and productive cough with vega sputum. Of note, he received a testosterone injection four days prior. On arrival, his vital signs were stable. Initial labs demonstrated hemoglobin 10.3 g/dL, decreased from 13.6 g/dL one month prior; remainder of labs were unremarkable. CT abdomen/pelvis showed beam artifact from right hip arthroplasty, arteriosclerotic disease, and chronic bony changes but no acute intra-abdominal pathology. He was treated in the ED with IV fluids, IV Protonix, and Toradol for pain. Surgery was consulted for possible colonoscopy. Stool studies including C. difficile have been ordered. - Review of Systems Constitutional: Weakness Eyes: No Symptoms Ears, Nose, & Throat: Nose Congestion, Throat Pain Respiratory: Cough Cardiac: No Symptoms Abdominal/Gastrointestinal: Abdominal Pain, Diarrhea Genitourinary Symptoms: Hesitancy Musculoskeletal: No Symptoms Skin: No Symptoms Neurological: No Symptoms Psychological: No Symptoms Endocrine: No Symptoms Hematologic/Lymphatic: Anemia Immunological/Allergic: No Symptoms Medications & Allergies Home Medications: Home Medication List Atorvastatin Calcium [Lipitor] 40 mg PO DAILY 04/14/21 [History Confirmed 02/27/25] Tamsulosin HCl 0.4 mg [Flomax 0.4 MG] 0.4 mg PO BID 04/20/22 [History Confirmed 02/27/25] Sumatriptan Succinate [Imitrex] 100 mg PO DAILY PRN PRN 08/25/22 [History Confirmed 02/27/25] Amlodipine Besylate 5 mg [Norvasc 5 mg] 5 mg PO BID 10/18/23 [History Confirmed 02/27/25] Modafinil 100 mg [Provigil 100MG Tablet] 200 mg PO BID 10/18/23 [History Confirmed 02/27/25] Pregabalin 75 mg PO .1800,2200 04/21/24 [History Confirmed 02/27/25] Albuterol 8 gm Mdi Hfa [Ventolin Hfa MDI] 2 puffs IH Q4H PRN PRN 02/27/25 [History Confirmed 02/27/25] Celecoxib 100 mg [celeBREX 100 MG] 200 mg PO BID 02/27/25 [History Confirmed 02/27/25] Losartan Potassium 50 mg [Cozaar 50 MG] 50 mg PO DAILY 02/27/25 [History Confirmed 02/27/25] Non-Formulary Drug [Non-Formulary Item] 1 each PO Q4-6HPRN PRN 02/27/25 [History Confirmed 02/27/25] Testosterone Cypionate 200 mg IM Q14D 02/27/25 [History Confirmed 02/27/25] Venlafaxine HCl ER 75 mg [Effexor XR 75 MG] 75 mg PO DAILY 02/27/25 [History Confirmed 02/27/25] tadalafiL [Tadalafil] 5 mg PO DAILY 02/27/25 [History Confirmed 02/27/25] Allergies/Adverse Reactions: Allergies Allergy/AdvReac Type Severity Reaction Status Date / Time rituximab Allergy Tightness Verified 02/27/25 12:37 in Chest - Past Medical History Past Medical History: Yes Neurological History: Migraines, Other ENT History: Cataracts Cardiac History: Deep Vein Thrombosis, High Cholesterol, Hypertension Respiratory History: No Pertinent History Endocrine Medical History: Other Musculoskelatal History: Osteoarthritis GI Medical History: Colorectal Cancer, GERD, Hernia, Pancreatitis, Ulcer History: No Pertinent History Pyscho-Social History: Anxiety, Depression Male Reproductive Disorders: Prostate Problems Comment: COLON CANCER, MOGAD- finished radiation/chemo in 2016 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 5 SPINAL TAPS. 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 STOPPED SMOKING IN 2013. MRI AT [facility]. R MAY, L TKA. BPH. Right hip/LTK. Autoimmune disorder MOGAD - Past Surgical History Past Surgical History: Yes Neuro Surgical History: No Pertinent History Cardiac History: No Pertinent History Respiratory Surgery: No Pertinent History GI Surgical History: Appendectomy, Colon Resection, Hernia Repair Genitourinary Surgical Hx: No Pertinent History Musculskeletal Surgical Hx: Joint Replacement, Orthopedic Surgery Male Surgical History: No Pertinent History Other Surgical History: open repair right femur. right hip replacement. left knee replacement Significant Family History: cancer, diabetes, kidney/renal disease - Social History Smoking Status: Former smoker How long have you smoked: 35 years Exposure to second hand smoke: No Alcohol: Rarely Drug Use: none - Social Determinants of Health Will the patient participate in the screening: Yes Do you worry about a steady place to live?: No Do you have any problems with any of the following?: No known problems In the past 12 months,have you had to go without utilities?: No Have you or anyone in your house had to go without enough: No Transportation Issues: No Has anyone in your support network made you feel unsafe?: No Does the patient want assistance with any of the above?: No - Physical Exam Vital Signs: Vital Signs - 24 hr Temp Pulse Resp BP BP Pulse Ox 02/27/25 12:57 97.2 F 81 18 131/75 95 02/27/25 12:33 97.2 F 81 18 131/75 95 02/27/25 12:10 98 02/27/25 12:00 78 15 111/78 99 02/27/25 11:45 80 13 120/76 96 02/27/25 11:30 86 18 111/64 96 02/27/25 11:15 90 19 115/72 95 02/27/25 11:00 86 15 107/69 94 L 02/27/25 10:45 86 20 111/73 95 02/27/25 10:30 88 23 114/74 95 02/27/25 10:15 84 17 118/79 96 02/27/25 10:08 86 21 129/89 98 02/27/25 09:45 91 H 16 145/85 97 02/27/25 09:30 91 H 14 111/69 97 02/27/25 09:14 86 18 118/73 96 02/27/25 08:45 92 H 17 113/68 98 02/27/25 08:33 91 H 14 116/73 98 02/27/25 08:30 93 H 10 L 97 02/27/25 08:29 92 H 13 96 02/27/25 08:00 96 H 15 121/76 96 02/27/25 07:50 97.3 F 110 H 16 143/81 98 General Appearance: no apparent distress Neurologic Exam: alert, oriented x 3, cooperative Eye Exam: PERRL/EOMI Ears, Nose, Throat Exam: normal ENT inspection Neck Exam: normal inspection Respiratory Exam: normal breath sounds, lungs clear Cardiovascular Exam: regular rate/rhythm, normal heart sounds Gastrointestinal/Abdomen Exam: soft, tenderness (TTP all 4 quads, hyperactive BS x 4 quads) Rectal Exam: deferred Back Exam: normal inspection Extremity Exam: normal inspection Skin Exam: normal color Results - Labs Lab/Micro Results: Lab Results-Last 24 Hours 02/27/25 02/27/25 02/27/25 Range/Units 08:09 08:09 08:09 WBC 5.6 (4.23-9.07) x10^3/uL RBC 3.08 L (4.63-6.08) x10^6/uL Hgb 10.3 L (13.7-17.5) g/dL Hct 30.4 L (40.1-51.0) % MCV 98.7 H (79.0-92.2) fL MCH 33.4 H (25.7-32.2) pg MCHC 33.9 (32.3-36.5) g/dL RDW 13.5 (11.6-14.4) % Plt Count 247 (163-337) x10^3/uL MPV 9.0 L (9.4-12.4) fL Gran % 58.8 (34.0-67.9) % Immature Gran % (Auto) 0.2 (0.001-0.429) % Nucleat RBC Rel Count 0.0 (0.00-0.2) % Eos # (Auto) 0.22 (0.04-0.54) x10^3/uL Immature Gran # (Auto) 0.01 (0.001-0.031) x10^3u/L Absolute Lymphs (auto) 1.08 L (1.32-3.57) x10^3/uL Absolute Monos (auto) 0.96 H (0.30-0.82) x10^3/uL Absolute Nucleated RBC 0.00 (0.00-0.012) x10^3u/L Lymphocytes % 19.3 L (21.8-53.1) % Monocytes % 17.1 H (5.3-12.2) % Eosinophils % 3.9 (0.8-7.0) % Basophils % 0.7 (0.2-1.2) % Absolute Granulocytes 3.29 (1.78-5.38) x10^3/uL Basophils # 0.04 (0.01-0.08) x10^3/uL Sodium 141 (135-145) mmol/L Potassium 3.5 (3.5-5.1) mmol/L Chloride 111 H (98-107) mmol/L Carbon Dioxide 23 (22-30) mmol/L Anion Gap 10.3 (5-15) MEQ/L BUN 13 (9-20) mg/dL Creatinine 0.84 (0.66-1.25) mg/dL Estimated GFR 103.0 ML/MIN Glucose 106 (74-106) mg/dL Calcium 8.4 (8.4-10.2) mg/dL Total Bilirubin 0.20 (0.2-1.3) mg/dL AST 47 (17-59) U/L ALT 29 (0-50) U/L Alkaline Phosphatase 89 (38-126) U/L Troponin I < 0.012 (0.000-0.033) ng/mL Serum Total Protein 5.5 L (6.3-8.2) g/dL Albumin 3.3 L (3.5-5.0) g/dL Lipase 60 (23-300) U/L Urine Color (Yellow) Urine Appearance (Clear) Urine pH (4.6-8.0) Ur Specific [place] (1.005-1.030) Urine Protein (Negative) Urine Glucose (UA) (Negative) mg/dL Urine Ketones (Negative) Urine Blood (Negative) Urine Nitrite (Negative) Urine Bilirubin (Negative) Urine Urobilinogen (0.2) mg/dL Ur Leukocyte Esterase (Negative) U Hyaline Cast (Auto) (0-2) /LPF Urine Microscopic RBC (0-5) /HPF Urine Microscopic WBC (0-5) /HPF Ur Epithelial Cells (None Seen) /HPF Urine Bacteria (None Seen) /HPF Urine Culture Reflexed (NO) ABO Group Rh Factor Antibody Screen (NEGATIVE) 09/02/25 09/02/25 09/02/25 Range/Units 08:09 08:24 12:09 WBC (4.23-9.07) x10^3/uL RBC (4.63-6.08) x10^6/uL Hgb (13.7-17.5) g/dL Hct (40.1-51.0) % MCV (79.0-92.2) fL MCH (25.7-32.2) pg MCHC (32.3-36.5) g/dL RDW (11.6-14.4) % Plt Count (163-337) x10^3/uL MPV (9.4-12.4) fL Gran % (34.0-67.9) % Immature Gran % (Auto) (0.001-0.429) % Nucleat RBC Rel Count (0.00-0.2) % Eos # (Auto) (0.04-0.54) x10^3/uL Immature Gran # (Auto) (0.001-0.031) x10^3u/L Absolute Lymphs (auto) (1.32-3.57) x10^3/uL Absolute Monos (auto) (0.30-0.82) x10^3/uL Absolute Nucleated RBC (0.00-0.012) x10^3u/L Lymphocytes % (21.8-53.1) % Monocytes % (5.3-12.2) % Eosinophils % (0.8-7.0) % Basophils % (0.2-1.2) % Absolute Granulocytes (1.78-5.38) x10^3/uL Basophils # (0.01-0.08) x10^3/uL Sodium (135-145) mmol/L Potassium (3.5-5.1) mmol/L Chloride (98-107) mmol/L Carbon Dioxide (22-30) mmol/L Anion Gap (5-15) MEQ/L BUN (9-20) mg/dL Creatinine (0.66-1.25) mg/dL Estimated GFR ML/MIN Glucose (74-106) mg/dL Calcium (8.4-10.2) mg/dL Total Bilirubin (0.2-1.3) mg/dL AST (17-59) U/L ALT (0-50) U/L Alkaline Phosphatase (38-126) U/L Troponin I < 0.012 (0.000-0.033) ng/mL Serum Total Protein (6.3-8.2) g/dL Albumin (3.5-5.0) g/dL Lipase (23-300) U/L Urine Color Yellow (Yellow) Urine Appearance Clear (Clear) Urine pH 6.0 (4.6-8.0) Ur Specific [place] >=1.030 A (1.005-1.030) Urine Protein Trace A (Negative) Urine Glucose (UA) Negative (Negative) mg/dL Urine Ketones 40 A (Negative) Urine Blood Negative (Negative) Urine Nitrite Negative (Negative) Urine Bilirubin Negative (Negative) Urine Urobilinogen 1.0 A (0.2) mg/dL Ur Leukocyte Esterase Negative (Negative) U Hyaline Cast (Auto) NONE SEEN (0-2) /LPF Urine Microscopic RBC 0-2 (0-5) /HPF Urine Microscopic WBC 0-2 (0-5) /HPF Ur Epithelial Cells None Seen (None Seen) /HPF Urine Bacteria None Seen (None Seen) /HPF Urine Culture Reflexed NO (NO) ABO Group O Rh Factor POSITIVE Antibody Screen NEGATIVE (NEGATIVE) - Radiology Impressions Radiology Exams & Impressions: Radiology Procedures Category Date Time Status ABDOMEN AND PELVIS W CONTRAST [CT] Stat Exams 02/27/25 08:24 Completed CHEST 1 VIEW (PORTABLE) Stat Exams 02/27/25 13:47 Ordered Assessment/Plan (1) Diarrhea Current Visit: Yes Status: Acute Assessment & Plan: -Monitor stool output and hydration status -Stool studies: C. difficile, stool culture, ova & parasites, fecal leukocytes -Hold antidiarrheals until infectious etiology excluded -Continue IVF -CT abdomen with no acute finding -Surg consulted Code(s): R19.7 - DIARRHEA, UNSPECIFIED (2) Abdominal pain Current Visit: Yes Status: Acute Assessment & Plan: -see above Code(s): R10.9 - UNSPECIFIED ABDOMINAL PAIN (3) Symptomatic anemia Current Visit: Yes Status: Acute Assessment & Plan: -Likely multifactorial: chronic disease vs acute GI loss -Monitor CBC q1224 hrs -Consider iron studies, ferritin, B12/folate as part of workup -PRBC transfusion if symptomatic or Hgb <7 g/dL -Address underlying etiology (GI evaluation for occult bleeding) Code(s): D64.9 - ANEMIA, UNSPECIFIED (4) Sore throat Current Visit: Yes Status: Acute Assessment & Plan: -Strep test -Chloroseptic spray prn Code(s): J02.9 - ACUTE PHARYNGITIS, UNSPECIFIED (5) Cough Current Visit: Yes Status: Acute Assessment & Plan: -CXR -Covid/Flu/RSV testing Code(s): R05.9 - COUGH, UNSPECIFIED (6) HTN (hypertension) Current Visit: Yes Status: Acute Assessment & Plan: -BP stable - continue home regimen Code(s): I10 - ESSENTIAL (PRIMARY) HYPERTENSION (7) HLD (hyperlipidemia) Current Visit: Yes Status: Acute Assessment & Plan: -continue home regimen Code(s): E78.5 - HYPERLIPIDEMIA, UNSPECIFIED (8) Depression Current Visit: Yes Status: Acute Assessment & Plan: -continue home meds - stable Code(s): F32.A - DEPRESSION, UNSPECIFIED (9) GI bleed Current Visit: Yes Status: Acute Assessment & Plan: -Protonix IV already initiated, continue PPI therapy -CBC reviewed with hgb at 10.3 of note hgb was 13.6 on 02/14/25 -Monitor serial H/H, transfuse if Hgb <7 or symptomatic anemia -Surgery consulted for colonoscopy proceed pending stability -Check iron studies, reticulocyte count if anemia worsens -Educate patient on medication effects (Pepto causing black stools) vs true melena Code(s): K92.2 - GASTROINTESTINAL HEMORRHAGE, UNSPECIFIED (10) History of colon cancer Current Visit: No Status: Chronic Assessment & Plan: -Maintain oncology follow-up for surveillance s/p colon resection/chemo/radiation at [facility] (unsure of doctors name) -Colonoscopy per GI and surgical guidance -Monitor for recurrence or new GI pathology given current symptoms VTE: SCD hold until surgical eval PPI: protonix BIED Dispo: 2-3 days Code status: Full code Plan of care time spent > 45 mins Code(s): Z85.038 - PERSONAL HISTORY OF MALIGNANT NEOPLASM OF LARGE INTESTINE
--- NOTE | 2025-02-27 14:03 | XRAY ---
Indication: Cough. Comparison: August 12, 2024 Portable apical lordotic chest remains hyperinflated and clear. Heart not enlarged. Bony thorax intact again with osteopenia and mild degenerative changes. No new/acute findings.
[2025-02-27] MEDS ORDERED: Ventolin Hfa MDI IH PRN (14:15)
[2025-02-27] MEDS ORDERED: SUMATRIPTAN SUCCINATE 50 MG PO PRN (14:15)
[2025-02-27 14:38] LABS: Iron 41.0 ug/dL (49-181)
[2025-02-27 14:38] LABS: INFLUENZA A NEGATIVE (NEGATIVE); INFLUENZA B NEGATIVE (NEGATIVE); RESPIRATORY SYNCTIAL VIRUS NEGATIVE (NEGATIVE); SARS-CoV-2 Xpert Express NEGATIVE (NEGATIVE)
[2025-02-27 14:48] LABS: Group A Strep NOT DETECTED (NEGATIVE)
[2025-02-27 14:52] LABS: TIBC 228.0 ug/dL (261-497)
[2025-02-27] MEDS ORDERED: MEDICATION INTERVENTION MC SCH (15:00)
[2025-02-27] MEDS: LYRICA 75 MG CAP PO SCH (17:26)
[2025-02-27] MEDS: Hydromorphone 1 mg/ml Injection IV PRN (17:30)
[2025-02-27 18:12] LABS: Ferritin 81.6 ng/mL (17.9-464)
[2025-02-27 19:18] LABS: Amphetamine,Urine NEGATIVE (NEGATIVE); Benzodiazepine,Urine NEGATIVE (NEGATIVE); Cocaine,Urine NEGATIVE (NEGATIVE); Methadone,Urine NEGATIVE (NEGATIVE); Opiate,Urine POSITIVE (NEGATIVE); PCP,Urine NEGATIVE (NEGATIVE); THC,Urine NEGATIVE (NEGATIVE)
[2025-02-27 19:35] LABS: Barbiturate,Urine NEGATIVE (NEGATIVE)
[2025-02-27 20:14] LABS: IFOB TEST RESULTS NEGATIVE (NEGATIVE)
[2025-02-27 20:51] LABS: 027 TOX PROD PRESUMPTIVE NEGATIVE (NEGATIVE); TOXIGENIC C. DIFF ORG NEGATIVE (NEGATIVE)
[2025-02-27] MEDS: PROTONIX 40 MG IV IV SCH (22:06)
[2025-02-27] MEDS: Flomax 0.4 MG PO SCH (22:06)
[2025-02-27] MEDS: NORVASC 5 MG PO SCH (22:06)
[2025-02-28] MEDS: IMODIUM 2 MG PO ONE (02:23)
[2025-02-28] MEDS: Zofran 4 MG/2 ML VIAL IV PRN (02:24)
--- NOTE | 2025-02-28 05:05 | PCM.NOTE ---
Date and Time: 02/28/25 0504 Subjective Assessment: is a 54 year old male with a past medical history of hyperlipidemia, hypertension, colorectal cancer status-post resection, depression,Mogad, and osteoarthritis. He presented to the ED 02/27/25 with three days of diffuse, sharp/crampy lower abdominal pain (7/10 in intensity) accompanied by >15 episod es of soft, non-watery diarrhea daily. He denies nausea, vomiting, or fever. He reports taking Pepto-Bismol yesterday, after which he noted black, tarry stools that prompted his ED visit. He also endorses a sore throat and productive cough with vega sputum. Of note, he received a testosterone injection four days prior. On arrival, his vital signs were stable. Initial labs demonstrated hemoglobin 10.3 g/dL, decreased from 13.6 g/dL one month prior; remainder of labs were unremarkable. CT abdomen/pelvis showed beam artifact from right hip arthroplasty, arteriosclerotic disease, and chronic bony changes but no acute intra-abdominal pathology. He was treated in the ED with IV fluids, IV Protonix, and Toradol for pain. Surgery was consulted for possible colonoscopy. Stool studies including C. difficile have been ordered. 02/28/25: Met with patient bedside. Reports continued abdominal pain and diarrhea. CDiff and occult stools negative. Labs stable. Surgery consulted and recommend EGD to be performed tomorrow. - Review of Systems Constitutional: Weakness Eyes: No Symptoms Ears, Nose, & Throat: No Symptoms Respiratory: No Symptoms Abdominal/Gastrointestinal: Abdominal Pain, Diarrhea Genitourinary Symptoms: No Symptoms Musculoskeletal: No Symptoms Skin: No Symptoms Neurological: No Symptoms Psychological: No Symptoms Endocrine: No Symptoms Hematologic/Lymphatic: No Symptoms Immunological/Allergic: No Symptoms Objective Exam General Appearance: no apparent distress Neurologic Exam: alert, oriented x 3, cooperative Skin Exam: normal color Eye Exam: PERRL Ears, Nose, Throat Exam: normal ENT inspection Neck Exam: normal inspection Respiratory Exam: normal breath sounds, lungs clear Cardiovascular Exam: regular rate/rhythm, normal heart sounds Gastrointestinal/Abdomen Exam: soft, normal bowel sounds, tenderness (TTP x 4 quads) Extremity Exam: normal inspection Back Exam: normal inspection Male Genitalia Exam: deferred Objective Data Vital Signs: Vital Signs - 24 hr Temp Pulse Resp BP BP Pulse Ox 02/28/25 03:51 97.3 F 94 H 20 137/83 94 L 02/27/25 23:59 98.3 F 97 H 18 134/81 94 L 02/27/25 20:00 97.9 F 94 H 18 125/67 95 02/27/25 16:04 97.6 F 84 16 135/66 96 02/27/25 12:57 97.2 F 81 18 131/75 95 02/27/25 12:33 97.2 F 81 18 131/75 95 02/27/25 12:10 98 02/27/25 12:00 78 15 111/78 99 02/27/25 11:45 80 13 120/76 96 02/27/25 11:30 86 18 111/64 96 02/27/25 11:15 90 19 115/72 95 02/27/25 11:00 86 15 107/69 94 L 02/27/25 10:45 86 20 111/73 95 02/27/25 10:30 88 23 114/74 95 02/27/25 10:15 84 17 118/79 96 02/27/25 10:08 86 21 129/89 98 02/27/25 09:45 91 H 16 145/85 97 02/27/25 09:30 91 H 14 111/69 97 02/27/25 09:14 86 18 118/73 96 02/27/25 08:45 92 H 17 113/68 98 02/27/25 08:33 91 H 14 116/73 98 02/27/25 08:30 93 H 10 L 97 02/27/25 08:29 92 H 13 96 02/27/25 08:00 96 H 15 121/76 96 02/27/25 07:50 97.3 F 110 H 16 143/81 98 Pain Assessment - Last Documented Pain Intensity 2 Pain Scale Used 0-10 Pain Scale Intake and Output: Intake & Output 02/25/25 02/26/25 02/27/25 02/28/25 11:59 11:59 11:59 11:59 Intake Total 870 Output Total 475 Balance 395 Weight 90.718 kg 97.9 kg Lab Results: Lab Results-Last 24 Hours 02/27/25 02/27/25 02/27/25 Range/Units 08:09 08:09 08:09 WBC 5.6 (4.23-9.07) x10^3/uL RBC 3.08 L (4.63-6.08) x10^6/uL Hgb 10.3 L (13.7-17.5) g/dL Hct 30.4 L (40.1-51.0) % MCV 98.7 H (79.0-92.2) fL MCH 33.4 H (25.7-32.2) pg MCHC 33.9 (32.3-36.5) g/dL RDW 13.5 (11.6-14.4) % Plt Count 247 (163-337) x10^3/uL MPV 9.0 L (9.4-12.4) fL Gran % 58.8 (34.0-67.9) % Immature Gran % (Auto) 0.2 (0.001-0.429) % Nucleat RBC Rel Count 0.0 (0.00-0.2) % Eos # (Auto) 0.22 (0.04-0.54) x10^3/uL Immature Gran # (Auto) 0.01 (0.001-0.031) x10^3u/L Absolute Lymphs (auto) 1.08 L (1.32-3.57) x10^3/uL Absolute Monos (auto) 0.96 H (0.30-0.82) x10^3/uL Absolute Nucleated RBC 0.00 (0.00-0.012) x10^3u/L Lymphocytes % 19.3 L (21.8-53.1) % Monocytes % 17.1 H (5.3-12.2) % Eosinophils % 3.9 (0.8-7.0) % Basophils % 0.7 (0.2-1.2) % Absolute Granulocytes 3.29 (1.78-5.38) x10^3/uL Basophils # 0.04 (0.01-0.08) x10^3/uL Sodium 141 (135-145) mmol/L Potassium 3.5 (3.5-5.1) mmol/L Chloride 111 H (98-107) mmol/L Carbon Dioxide 23 (22-30) mmol/L Anion Gap 10.3 (5-15) MEQ/L BUN 13 (9-20) mg/dL Creatinine 0.84 (0.66-1.25) mg/dL Estimated GFR 103.0 ML/MIN Glucose 106 (74-106) mg/dL Calcium 8.4 (8.4-10.2) mg/dL Iron (49-181) ug/dL TIBC (261-497) ug/dL Iron Saturation (20-39) % Ferritin (17.9-464) ng/mL Total Bilirubin 0.20 (0.2-1.3) mg/dL AST 47 (17-59) U/L ALT 29 (0-50) U/L Alkaline Phosphatase 89 (38-126) U/L Troponin I < 0.012 (0.000-0.033) ng/mL Serum Total Protein 5.5 L (6.3-8.2) g/dL Albumin 3.3 L (3.5-5.0) g/dL Lipase 60 (23-300) U/L Vitamin B12 (239-931) pg/mL Folic Acid (2.76 - >20) ng/mL Urine Color (Yellow) Urine Appearance (Clear) Urine pH (4.6-8.0) Ur Specific Crozier (1.005-1.030) Urine Protein (Negative) Urine Glucose (UA) (Negative) mg/dL Urine Ketones (Negative) Urine Blood (Negative) Urine Nitrite (Negative) Urine Bilirubin (Negative) Urine Urobilinogen (0.2) mg/dL Ur Leukocyte Esterase (Negative) U Hyaline Cast (Auto) (0-2) /LPF Urine Microscopic RBC (0-5) /HPF Urine Microscopic WBC (0-5) /HPF Ur Epithelial Cells (None Seen) /HPF Urine Bacteria (None Seen) /HPF Urine Culture Reflexed (NO) Stl Occult Blood (IFOB) (NEGATIVE) Urine Opiates Level (NEGATIVE) Ur Methadone (NEGATIVE) Urine Barbiturates (NEGATIVE) Ur Phencyclidine (PCP) (NEGATIVE) Urine Amphetamine (NEGATIVE) U Benzodiazepine Level (NEGATIVE) Urine Cocaine (NEGATIVE) Urine Marijuana (THC) (NEGATIVE) C. difficile Screen (NEGATIVE) C.difficile 027-NAP1-B1 (NEGATIVE) Influenza Type A Ag (NEGATIVE) Influenza Type B Ag (NEGATIVE) RSV (PCR) (NEGATIVE) SARS-CoV-2 (PCR) (NEGATIVE) Group A Strep Antibody (NEGATIVE) ABO Group Rh Factor Antibody Screen (NEGATIVE) 02/27/25 02/27/25 02/27/25 Range/Units 08:09 08:09 08:09 WBC (4.23-9.07) x10^3/uL RBC (4.63-6.08) x10^6/uL Hgb (13.7-17.5) g/dL Hct (40.1-51.0) % MCV (79.0-92.2) fL MCH (25.7-32.2) pg MCHC (32.3-36.5) g/dL RDW (11.6-14.4) % Plt Count (163-337) x10^3/uL MPV (9.4-12.4) fL Gran % (34.0-67.9) % Immature Gran % (Auto) (0.001-0.429) % Nucleat RBC Rel Count (0.00-0.2) % Eos # (Auto) (0.04-0.54) x10^3/uL Immature Gran # (Auto) (0.001-0.031) x10^3u/L Absolute Lymphs (auto) (1.32-3.57) x10^3/uL Absolute Monos (auto) (0.30-0.82) x10^3/uL Absolute Nucleated RBC (0.00-0.012) x10^3u/L Lymphocytes % (21.8-53.1) % Monocytes % (5.3-12.2) % Eosinophils % (0.8-7.0) % Basophils % (0.2-1.2) % Absolute Granulocytes (1.78-5.38) x10^3/uL Basophils # (0.01-0.08) x10^3/uL Sodium (135-145) mmol/L Potassium (3.5-5.1) mmol/L Chloride (98-107) mmol/L Carbon Dioxide (22-30) mmol/L Anion Gap (5-15) MEQ/L BUN (9-20) mg/dL Creatinine (0.66-1.25) mg/dL Estimated GFR ML/MIN Glucose (74-106) mg/dL Calcium (8.4-10.2) mg/dL Iron 41 L (49-181) ug/dL TIBC 228 L (261-497) ug/dL Iron Saturation 18.0 L (20-39) % Ferritin 81.6 (17.9-464) ng/mL Total Bilirubin (0.2-1.3) mg/dL AST (17-59) U/L ALT (0-50) U/L Alkaline Phosphatase (38-126) U/L Troponin I (0.000-0.033) ng/mL Serum Total Protein (6.3-8.2) g/dL Albumin (3.5-5.0) g/dL Lipase (23-300) U/L Vitamin B12 221 L (239-931) pg/mL Folic Acid 7.62 (2.76 - >20) ng/mL Urine Color (Yellow) Urine Appearance (Clear) Urine pH (4.6-8.0) Ur Specific Crozier (1.005-1.030) Urine Protein (Negative) Urine Glucose (UA) (Negative) mg/dL Urine Ketones (Negative) Urine Blood (Negative) Urine Nitrite (Negative) Urine Bilirubin (Negative) Urine Urobilinogen (0.2) mg/dL Ur Leukocyte Esterase (Negative) U Hyaline Cast (Auto) (0-2) /LPF Urine Microscopic RBC (0-5) /HPF Urine Microscopic WBC (0-5) /HPF Ur Epithelial Cells (None Seen) /HPF Urine Bacteria (None Seen) /HPF Urine Culture Reflexed (NO) Stl Occult Blood (IFOB) (NEGATIVE) Urine Opiates Level (NEGATIVE) Ur Methadone (NEGATIVE) Urine Barbiturates (NEGATIVE) Ur Phencyclidine (PCP) (NEGATIVE) Urine Amphetamine (NEGATIVE) U Benzodiazepine Level (NEGATIVE) Urine Cocaine (NEGATIVE) Urine Marijuana (THC) (NEGATIVE) C. difficile Screen (NEGATIVE) C.difficile 027-NAP1-B1 (NEGATIVE) Influenza Type A Ag (NEGATIVE) Influenza Type B Ag (NEGATIVE) RSV (PCR) (NEGATIVE) SARS-CoV-2 (PCR) (NEGATIVE) Group A Strep Antibody (NEGATIVE) ABO Group O Rh Factor POSITIVE Antibody Screen NEGATIVE (NEGATIVE) 02/27/25 02/27/25 02/27/25 Range/Units 08:24 08:24 12:09 WBC (4.23-9.07) x10^3/uL RBC (4.63-6.08) x10^6/uL Hgb (13.7-17.5) g/dL Hct (40.1-51.0) % MCV (79.0-92.2) fL MCH (25.7-32.2) pg MCHC (32.3-36.5) g/dL RDW (11.6-14.4) % Plt Count (163-337) x10^3/uL MPV (9.4-12.4) fL Gran % (34.0-67.9) % Immature Gran % (Auto) (0.001-0.429) % Nucleat RBC Rel Count (0.00-0.2) % Eos # (Auto) (0.04-0.54) x10^3/uL Immature Gran # (Auto) (0.001-0.031) x10^3u/L Absolute Lymphs (auto) (1.32-3.57) x10^3/uL Absolute Monos (auto) (0.30-0.82) x10^3/uL Absolute Nucleated RBC (0.00-0.012) x10^3u/L Lymphocytes % (21.8-53.1) % Monocytes % (5.3-12.2) % Eosinophils % (0.8-7.0) % Basophils % (0.2-1.2) % Absolute Granulocytes (1.78-5.38) x10^3/uL Basophils # (0.01-0.08) x10^3/uL Sodium (135-145) mmol/L Potassium (3.5-5.1) mmol/L Chloride (98-107) mmol/L Carbon Dioxide (22-30) mmol/L Anion Gap (5-15) MEQ/L BUN (9-20) mg/dL Creatinine (0.66-1.25) mg/dL Estimated GFR ML/MIN Glucose (74-106) mg/dL Calcium (8.4-10.2) mg/dL Iron (49-181) ug/dL TIBC (261-497) ug/dL Iron Saturation (20-39) % Ferritin (17.9-464) ng/mL Total Bilirubin (0.2-1.3) mg/dL AST (17-59) U/L ALT (0-50) U/L Alkaline Phosphatase (38-126) U/L Troponin I < 0.012 (0.000-0.033) ng/mL Serum Total Protein (6.3-8.2) g/dL Albumin (3.5-5.0) g/dL Lipase (23-300) U/L Vitamin B12 (239-931) pg/mL Folic Acid (2.76 - >20) ng/mL Urine Color Yellow (Yellow) Urine Appearance Clear (Clear) Urine pH 6.0 (4.6-8.0) Ur Specific Crozier >=1.030 A (1.005-1.030) Urine Protein Trace A (Negative) Urine Glucose (UA) Negative (Negative) mg/dL Urine Ketones 40 A (Negative) Urine Blood Negative (Negative) Urine Nitrite Negative (Negative) Urine Bilirubin Negative (Negative) Urine Urobilinogen 1.0 A (0.2) mg/dL Ur Leukocyte Esterase Negative (Negative) U Hyaline Cast (Auto) NONE SEEN (0-2) /LPF Urine Microscopic RBC 0-2 (0-5) /HPF Urine Microscopic WBC 0-2 (0-5) /HPF Ur Epithelial Cells None Seen (None Seen) /HPF Urine Bacteria None Seen (None Seen) /HPF Urine Culture Reflexed NO (NO) Stl Occult Blood (IFOB) (NEGATIVE) Urine Opiates Level POSITIVE A (NEGATIVE) Ur Methadone NEGATIVE (NEGATIVE) Urine Barbiturates NEGATIVE (NEGATIVE) Ur Phencyclidine (PCP) NEGATIVE (NEGATIVE) Urine Amphetamine NEGATIVE (NEGATIVE) U Benzodiazepine Level NEGATIVE (NEGATIVE) Urine Cocaine NEGATIVE (NEGATIVE) Urine Marijuana (THC) NEGATIVE (NEGATIVE) C. difficile Screen (NEGATIVE) C.difficile 027-NAP1-B1 (NEGATIVE) Influenza Type A Ag (NEGATIVE) Influenza Type B Ag (NEGATIVE) RSV (PCR) (NEGATIVE) SARS-CoV-2 (PCR) (NEGATIVE) Group A Strep Antibody (NEGATIVE) ABO Group Rh Factor Antibody Screen (NEGATIVE) 02/27/25 02/27/25 02/27/25 Range/Units 13:55 16:35 20:00 WBC (4.23-9.07) x10^3/uL RBC (4.63-6.08) x10^6/uL Hgb (13.7-17.5) g/dL Hct (40.1-51.0) % MCV (79.0-92.2) fL MCH (25.7-32.2) pg MCHC (32.3-36.5) g/dL RDW (11.6-14.4) % Plt Count (163-337) x10^3/uL MPV (9.4-12.4) fL Gran % (34.0-67.9) % Immature Gran % (Auto) (0.001-0.429) % Nucleat RBC Rel Count (0.00-0.2) % Eos # (Auto) (0.04-0.54) x10^3/uL Immature Gran # (Auto) (0.001-0.031) x10^3u/L Absolute Lymphs (auto) (1.32-3.57) x10^3/uL Absolute Monos (auto) (0.30-0.82) x10^3/uL Absolute Nucleated RBC (0.00-0.012) x10^3u/L Lymphocytes % (21.8-53.1) % Monocytes % (5.3-12.2) % Eosinophils % (0.8-7.0) % Basophils % (0.2-1.2) % Absolute Granulocytes (1.78-5.38) x10^3/uL Basophils # (0.01-0.08) x10^3/uL Sodium (135-145) mmol/L Potassium (3.5-5.1) mmol/L Chloride (98-107) mmol/L Carbon Dioxide (22-30) mmol/L Anion Gap (5-15) MEQ/L BUN (9-20) mg/dL Creatinine (0.66-1.25) mg/dL Estimated GFR ML/MIN Glucose (74-106) mg/dL Calcium (8.4-10.2) mg/dL Iron (49-181) ug/dL TIBC (261-497) ug/dL Iron Saturation (20-39) % Ferritin (17.9-464) ng/mL Total Bilirubin (0.2-1.3) mg/dL AST (17-59) U/L ALT (0-50) U/L Alkaline Phosphatase (38-126) U/L Troponin I < 0.012 (0.000-0.033) ng/mL Serum Total Protein (6.3-8.2) g/dL Albumin (3.5-5.0) g/dL Lipase (23-300) U/L Vitamin B12 (239-931) pg/mL Folic Acid (2.76 - >20) ng/mL Urine Color (Yellow) Urine Appearance (Clear) Urine pH (4.6-8.0) Ur Specific Crozier (1.005-1.030) Urine Protein (Negative) Urine Glucose (UA) (Negative) mg/dL Urine Ketones (Negative) Urine Blood (Negative) Urine Nitrite (Negative) Urine Bilirubin (Negative) Urine Urobilinogen (0.2) mg/dL Ur Leukocyte Esterase (Negative) U Hyaline Cast (Auto) (0-2) /LPF Urine Microscopic RBC (0-5) /HPF Urine Microscopic WBC (0-5) /HPF Ur Epithelial Cells (None Seen) /HPF Urine Bacteria (None Seen) /HPF Urine Culture Reflexed (NO) Stl Occult Blood (IFOB) NEGATIVE (NEGATIVE) Urine Opiates Level (NEGATIVE) Ur Methadone (NEGATIVE) Urine Barbiturates (NEGATIVE) Ur Phencyclidine (PCP) (NEGATIVE) Urine Amphetamine (NEGATIVE) U Benzodiazepine Level (NEGATIVE) Urine Cocaine (NEGATIVE) Urine Marijuana (THC) (NEGATIVE) C. difficile Screen (NEGATIVE) C.difficile 027-NAP1-B1 (NEGATIVE) Influenza Type A Ag NEGATIVE (NEGATIVE) Influenza Type B Ag NEGATIVE (NEGATIVE) RSV (PCR) NEGATIVE (NEGATIVE) SARS-CoV-2 (PCR) NEGATIVE (NEGATIVE) Group A Strep Antibody NOT DETECTED (NEGATIVE) ABO Group Rh Factor Antibody Screen (NEGATIVE) 02/27/25 Range/Units 20:00 WBC (4.23-9.07) x10^3/uL RBC (4.63-6.08) x10^6/uL Hgb (13.7-17.5) g/dL Hct (40.1-51.0) % MCV (79.0-92.2) fL MCH (25.7-32.2) pg MCHC (32.3-36.5) g/dL RDW (11.6-14.4) % Plt Count (163-337) x10^3/uL MPV (9.4-12.4) fL Gran % (34.0-67.9) % Immature Gran % (Auto) (0.001-0.429) % Nucleat RBC Rel Count (0.00-0.2) % Eos # (Auto) (0.04-0.54) x10^3/uL Immature Gran # (Auto) (0.001-0.031) x10^3u/L Absolute Lymphs (auto) (1.32-3.57) x10^3/uL Absolute Monos (auto) (0.30-0.82) x10^3/uL Absolute Nucleated RBC (0.00-0.012) x10^3u/L Lymphocytes % (21.8-53.1) % Monocytes % (5.3-12.2) % Eosinophils % (0.8-7.0) % Basophils % (0.2-1.2) % Absolute Granulocytes (1.78-5.38) x10^3/uL Basophils # (0.01-0.08) x10^3/uL Sodium (135-145) mmol/L Potassium (3.5-5.1) mmol/L Chloride (98-107) mmol/L Carbon Dioxide (22-30) mmol/L Anion Gap (5-15) MEQ/L BUN (9-20) mg/dL Creatinine (0.66-1.25) mg/dL Estimated GFR ML/MIN Glucose (74-106) mg/dL Calcium (8.4-10.2) mg/dL Iron (49-181) ug/dL TIBC (261-497) ug/dL Iron Saturation (20-39) % Ferritin (17.9-464) ng/mL Total Bilirubin (0.2-1.3) mg/dL AST (17-59) U/L ALT (0-50) U/L Alkaline Phosphatase (38-126) U/L Troponin I (0.000-0.033) ng/mL Serum Total Protein (6.3-8.2) g/dL Albumin (3.5-5.0) g/dL Lipase (23-300) U/L Vitamin B12 (239-931) pg/mL Folic Acid (2.76 - >20) ng/mL Urine Color (Yellow) Urine Appearance (Clear) Urine pH (4.6-8.0) Ur Specific Crozier (1.005-1.030) Urine Protein (Negative) Urine Glucose (UA) (Negative) mg/dL Urine Ketones (Negative) Urine Blood (Negative) Urine Nitrite (Negative) Urine Bilirubin (Negative) Urine Urobilinogen (0.2) mg/dL Ur Leukocyte Esterase (Negative) U Hyaline Cast (Auto) (0-2) /LPF Urine Microscopic RBC (0-5) /HPF Urine Microscopic WBC (0-5) /HPF Ur Epithelial Cells (None Seen) /HPF Urine Bacteria (None Seen) /HPF Urine Culture Reflexed (NO) Stl Occult Blood (IFOB) (NEGATIVE) Urine Opiates Level (NEGATIVE) Ur Methadone (NEGATIVE) Urine Barbiturates (NEGATIVE) Ur Phencyclidine (PCP) (NEGATIVE) Urine Amphetamine (NEGATIVE) U Benzodiazepine Level (NEGATIVE) Urine Cocaine (NEGATIVE) Urine Marijuana (THC) (NEGATIVE) C. difficile Screen NEGATIVE (NEGATIVE) C.difficile 027-NAP1-B1 PRESUMPTIVE NEGATIVE (NEGATIVE) Influenza Type A Ag (NEGATIVE) Influenza Type B Ag (NEGATIVE) RSV (PCR) (NEGATIVE) SARS-CoV-2 (PCR) (NEGATIVE) Group A Strep Antibody (NEGATIVE) ABO Group Rh Factor Antibody Screen (NEGATIVE) Radiology Exams: Radiology Procedures Category Date Time Status ABDOMEN AND PELVIS W CONTRAST [CT] Stat Exams 02/27/25 08:24 Completed CHEST 1 VIEW (PORTABLE) Stat Exams 02/27/25 13:47 Completed Medications: Medications Generic Name Dose Route Start Last Admin Trade Name Freq PRN Reason Stop Dose Admin Acetaminophen 650 mg 02/27/25 14:11 Acetaminophen 325 Mg Tablet PO 03/29/25 14:10 Q4H PRN PRN PAIN, FEVER, HEADACHE Amlodipine Besylate 5 mg 02/27/25 22:00 02/27/25 22:06 Amlodipine Besylate 5 Mg Tablet PO 03/29/25 21:59 5 mg BID SANTIAGO Administration Hydromorphone HCl 0.5 mg 02/27/25 14:14 02/28/25 02:24 Hydromorphone 1 Mg/1ml Inj IV 03/04/25 14:13 0.5 mg Q4H PRN PRN Administration PAIN Sodium Chloride 1,000 mls @ 100 mls/hr 02/27/25 14:15 02/28/25 02:24 Sodium Chloride 0.9% 1000 Ml IV 03/29/25 14:14 100 mls/hr .Q10H SANTIAGO Administration Loperamide HCl 2 mg 02/28/25 02:00 02/28/25 02:23 Loperamide Hcl 2 Mg Capsule PO 02/28/25 02:01 2 mg STAT ONE Administration Losartan Potassium 50 mg 02/28/25 10:00 Losartan Potassium 50 Mg Tablet PO 03/30/25 09:59 DAILY SANTIAGO Miscellaneous Information 1 each 02/27/25 15:00 Medication Intervention 1 Each Each 03/29/25 14:59 .RN TO CHECK SANTIAGO Ondansetron HCl 4 mg 02/27/25 14:11 02/28/25 02:24 Ondansetron Hcl 4 Mg/2 Ml Vial IV 03/29/25 14:10 4 mg Q6H PRN PRN Administration NAUSEA/VOMITING Pantoprazole Sodium 40 mg 02/27/25 22:00 02/27/25 22:06 Pantoprazole 40 Mg Vial IV 03/29/25 21:59 40 mg BID SANTIAGO Administration Pregabalin 75 mg 02/27/25 18:00 02/27/25 22:06 Pregabalin 75 Mg Capsule PO 03/29/25 17:59 75 mg 1800,2200 SANTIAGO Administration Simvastatin 40 mg 02/28/25 10:00 Simvastatin 20 Mg Tablet PO 03/30/25 09:59 DAILY SANTIAGO Tamsulosin HCl 0.4 mg 02/27/25 22:00 02/27/25 22:06 Tamsulosin Hcl 0.4 Mg Cap PO 03/29/25 21:59 0.4 mg BID SANTIAGO Administration Venlafaxine HCl 75 mg 02/28/25 10:00 Venlafaxine Hcl 75 Mg Extended Release Capsule PO 03/30/25 09:59 DAILY SANTIAGO Discontinued Medications Generic Name Dose Route Start Last Admin Trade Name Freq PRN Reason Stop Dose Admin Albuterol Sulfate gm 02/27/25 14:15 Albuterol Sulfate 8 Gm Mdi Hfa IH 03/29/25 14:14 Q4H PRN PRN SHORTNESS OF BREATH Sodium Chloride 1,000 mls @ 100 mls/hr 02/27/25 08:30 02/27/25 08:28 Sodium Chloride 0.9% 1000 Ml IV 03/29/25 08:29 100 mls/hr .Q10H SANTIAGO Administration Sodium Chloride Confirm 02/27/25 08:27 Sodium Chloride 0.9% 1000 Ml Administered 02/27/25 08:28 Dose 1,000 mls @ ud .ROUTE .STK-MED ONE Ketorolac Tromethamine 30 mg 02/27/25 08:23 02/27/25 08:28 Ketorolac Tromethamine 30 Mg/Ml Inj IV 02/27/25 08:24 30 mg STAT ONE Administration Ketorolac Tromethamine Confirm 02/27/25 08:27 Ketorolac Tromethamine 30 Mg/Ml Inj Administered 02/27/25 08:28 Dose 30 mg .ROUTE .STK-MED ONE Ondansetron HCl 4 mg 02/27/25 08:23 02/27/25 08:28 Ondansetron Hcl 4 Mg/2 Ml Vial IV 02/27/25 08:24 4 mg STAT ONE Administration Ondansetron HCl Confirm 02/27/25 08:27 Ondansetron Hcl 4 Mg/2 Ml Vial Administered 02/27/25 08:28 Dose 4 mg .ROUTE .STK-MED ONE Pantoprazole Sodium 40 mg 02/27/25 11:44 02/27/25 11:50 Pantoprazole 40 Mg Vial IV 02/27/25 11:45 40 mg STAT ONE Administration Pantoprazole Sodium Confirm 02/27/25 11:49 Pantoprazole 40 Mg Vial Administered 02/27/25 11:50 Dose 40 mg IV .STK-MED ONE Assessment/Plan (1) Diarrhea Current Visit: Yes Status: Acute Assessment & Plan: -Monitor stool output and hydration status -Stool studies: C. difficile, stool culture, ova & parasites, fecal leukocytes -Hold antidiarrheals until infectious etiology excluded -Continue IVF -CT abdomen with no acute finding -Surg consulted 02/28: -Surgery consulted plan for EGD 03/01 -CDiff and occult stools negative; stool culture and studies pending -WBC now WNL -Continue IVF Code(s): R19.7 - DIARRHEA, UNSPECIFIED (2) Abdominal pain Current Visit: Yes Status: Acute Assessment & Plan: -see above Code(s): R10.9 - UNSPECIFIED ABDOMINAL PAIN (3) Symptomatic anemia Current Visit: Yes Status: Acute Assessment & Plan: -Likely multifactorial: chronic disease vs acute GI loss -Monitor CBC q1224 hrs -Consider iron studies, ferritin, B12/folate as part of workup -PRBC transfusion if symptomatic or Hgb <7 g/dL -Address underlying etiology (GI evaluation for occult bleeding) 02/28/25: -Occult stool negative -Hemoglobin stable at 10 Code(s): D64.9 - ANEMIA, UNSPECIFIED (4) Sore throat Current Visit: Yes Status: Acute Assessment & Plan: -Strep test -Chloroseptic spray prn 02/28: -Strep A negative -resolved Code(s): J02.9 - ACUTE PHARYNGITIS, UNSPECIFIED (5) Cough Current Visit: Yes Status: Acute Assessment & Plan: -CXR -Covid/Flu/RSV testing 02/28: -CXR with no acute findings -Covid/flu/RSV negative Code(s): R05.9 - COUGH, UNSPECIFIED (6) HTN (hypertension) Current Visit: Yes Status: Acute Assessment & Plan: -BP stable - continue home regimen Code(s): I10 - ESSENTIAL (PRIMARY) HYPERTENSION (7) HLD (hyperlipidemia) Current Visit: Yes Status: Acute Assessment & Plan: -continue home regimen Code(s): E78.5 - HYPERLIPIDEMIA, UNSPECIFIED (8) Depression Current Visit: Yes Status: Acute Assessment & Plan: -continue home meds - stable Code(s): F32.A - DEPRESSION, UNSPECIFIED (9) GI bleed Current Visit: Yes Status: Acute Assessment & Plan: -Protonix IV already initiated, continue PPI therapy -CBC reviewed with hgb at 10.3 of note hgb was 13.6 on 02/14/25 -Monitor serial H/H, transfuse if Hgb <7 or symptomatic anemia -Surgery consulted for colonoscopy proceed pending stability -Check iron studies, reticulocyte count if anemia worsens -Educate patient on medication effects (Pepto causing black stools) vs true melena 02/28: -Occults stool negative -Surgery consulted- appreciate recs- plan for EGD 03/01 Code(s): K92.2 - GASTROINTESTINAL HEMORRHAGE, UNSPECIFIED (10) History of colon cancer Current Visit: No Status: Chronic Assessment & Plan: -Maintain oncology follow-up for surveillance s/p colon resection/chemo/radiation at [place] (unsure of doctors name) -Colonoscopy per GI and surgical guidance -Monitor for recurrence or new GI pathology given current symptoms VTE: SCD hold until surgical eval PPI: protonix BIED Dispo: 2-3 days Code status: Full code Plan of care time spent > 35 mins Code(s): R19.7 - DIARRHEA, UNSPECIFIED (2) Abdominal pain Current Visit: Yes Status: Acute Code(s): R10.9 - UNSPECIFIED ABDOMINAL PAIN (3) Symptomatic anemia Current Visit: Yes Status: Acute Code(s): D64.9 - ANEMIA, UNSPECIFIED (4) Sore throat Current Visit: Yes Status: Acute Code(s): J02.9 - ACUTE PHARYNGITIS, UNSPECIFIED (5) Cough Current Visit: Yes Status: Acute Code(s): R05.9 - COUGH, UNSPECIFIED (6) HTN (hypertension) Current Visit: Yes Status: Acute Code(s): I10 - ESSENTIAL (PRIMARY) HYPERTENSION (7) HLD (hyperlipidemia) Current Visit: Yes Status: Acute Code(s): E78.5 - HYPERLIPIDEMIA, UNSPECIFIED (8) Depression Current Visit: Yes Status: Acute Code(s): F32.A - DEPRESSION, UNSPECIFIED (9) GI bleed Current Visit: Yes Status: Acute Code(s): K92.2 - GASTROINTESTINAL HEMORRHAGE, UNSPECIFIED (10) History of colon cancer Current Visit: No Status: Chronic Code(s): Z85.038 - PERSONAL HISTORY OF MALIGNANT NEOPLASM OF LARGE INTESTINE
[2025-02-28 05:42] LABS: BASOPHIL % 0.5 % (0.2-1.2); Basophil (Absolute #) 0.03 x10^3/uL (0.01-0.08); Eosinophil (Absolute #) 0.23 x10^3/uL (0.04-0.54); Hematocrit 30.3 % (40.1-51.0); Hemoglobin 10.0 g/dL (13.7-17.5); IMMATURE GRAN # 0.01 x10^3u/L (0.001-0.031); IMMATURE GRAN % 0.2 % (0.001-0.429); Lymphocyte (Absolute #) 0.96 x10^3/uL (1.32-3.57); Mean Corpuscular Hemoglobin 33.3 pg (25.7-32.2); Mean Corpuscular Hgb Concent. 33.0 g/dL (32.3-36.5); Monocyte (Absolute #) 0.91 x10^3/uL (0.30-0.82); NUCLEATED RBC # 0.00 x10^3u/L (0.00-0.012); NUCLEATED RBC % 0.0 % (0.00-0.2); Platelet Count 272 x10^3/uL (163-337); Red Blood Count 3.00 x10^6/uL (4.63-6.08); White Blood Count 6.3 x10^3/uL (4.23-9.07)
[2025-02-28 06:08] LABS: Calcium 8.2 mg/dL (8.4-10.2); Carbon Dioxide 23 mmol/L (22-30); Creatinine 1 0.74 mg/dL (0.66-1.25); EST GLOMERULAR FILTRATION RATE 107.0 ML/MIN; Glucose 78 mg/dL (74-106); Potassium 3.5 mmol/L (3.5-5.1); SGOT/AST 35 U/L (17-59); SGPT/ALT 24 U/L (0-50); Total Protein 5.6 g/dL (6.3-8.2)
[2025-02-28 07:07] VITALS: RESP 16
[2025-02-28] MEDS: ZOCOR 20MG PO SCH (08:54)
[2025-02-28] MEDS: Effexor XR 75 MG PO SCH (08:54)
[2025-02-28] MEDS: Cozaar 50 MG PO SCH (08:55)
[2025-02-28] MEDS ORDERED: LIPITOR 40MG PO SCH (10:00)
[2025-02-28] MEDS ORDERED: Lactated Ringers 1,000 ML IV SCH (11:30)
[2025-02-28] MEDS: TYLENOL 325 MG PO PRN (14:48)
[2025-02-28 15:56] VITALS: BP 116/58; PULSE 98; TEMP 98.1; O2SAT 95
--- NOTE | 2025-02-28 17:06 | PCM.DS ---
Discharge Summary Date of Admission: 02/27/25 12:32 Date of Discharge: 02/28/25 Admitting Physician: AYSE LORD MD Consults: Consults on Case 02/27/25 12:33 Consult Surgery ROUTINE Primary Care Provider: NELDA CASTOR TOM Allergies Allergies rituximab Allergy (Verified 02/27/25 12:37) Tightness in Chest will pre medicate prior to infusion Hospital Summary - Hospital Course Hospital Course: Mr. Harp is a 54-year-old male with a past medical history significant for hypertension, hyperlipidemia, depression, osteoarthritis, prior colorectal cancer status-post resection, and [place] who presented on February 27, 2025 with three days of diffuse lower abdominal pain and profuse diarrhea. The pain was described as sharp and crampy, rated at 7/10, and associated with more than fifteen daily episodes of soft but non-watery stools. He denied nausea, vomiting, or fever but reported black, tarry stools after taking Pepto-Bismol the day before admission, as well as concurrent sore throat and productive cough with vega sputum. Of note, he had recently received a testosterone injection four days prior to presentation. On arrival to the emergency department, his vital signs were stable. Laboratory studies revealed a hemoglobin of 10.3 g/dL, decreased from 13.6 g/dL one month earlier, while other labs were within normal limits. CT imaging of the abdomen and pelvis demonstrated no acute pathology, although findings were limited by beam artifact from his right hip arthroplasty. Chronic changes of arteriosclerotic disease and bony remodeling were noted. He was managed with IV fluids, Protonix, and Toradol. Surgery was consulted for possible colonoscopy, and stool studies were ordered, including testing for C. difficile. During admission, his abdominal pain and diarrhea resolved, and he tolerated diet. Repeat labs remained stable, with hemoglobin holding at 10 g/dL. Occult blood and C. difficile studies were negative, and stool cultures remain pending. Chest radiography demonstrated no acute disease, and viral respiratory testing was negative. His sore throat and cough also improved, with strep testing negative. Given his stability and symptom resolution, surgical consultants recommended outpatient endoscopic evaluation. He has follow-up arranged for EGD on March 01 with the [facility]. At the time of discharge, he was asymptomatic, hemodynamically stable, and agreeable to outpatient follow-up. He will continue Protonix on discharge, maintain hydration, and follow up closely for endoscopic evaluation and stool study results. Discharge Note New Diagnosis: Diarrhea New Medications: immodium prn/ protonix /zofran Follow Up: Surgery tomorrow/pcp Results pending: stool culture Outpatient testing to order: EGD I spent 35 minutes [id number] with the patient on the day of discharge performing discharge exam, discussing hospital stay and discharge instructions with patient and caregivers, preparation of discharge records, prescriptions & referral forms and addressing any questions/concerns the patient had as documented above. - Vitals & Intake/Output Vital Signs: Vital Signs Temperature 98.1 F 02/28/25 15:56 Pulse Rate 98 H 02/28/25 15:56 Respiratory Rate 16 02/28/25 15:56 Blood Pressure 116/58 02/28/25 15:56 O2 Sat by Pulse Oximetry 95 02/28/25 15:56 Intake & Output: Intake & Output 02/26/25 02/27/25 02/28/25 03/01/25 11:59 11:59 11:59 11:59 Intake Total 870 1221 Output Total 475 Balance 395 1221 Weight 90.718 kg 99 kg - Lab Result Diagrams: 02/28/25 04:34 02/28/25 04:34 Lab Results-Last 24 Hrs: Lab Results-Last 24 Hours 02/27/25 02/27/25 02/27/25 Range/Units 08:09 08:24 16:35 WBC (4.23-9.07) x10^3/uL RBC (4.63-6.08) x10^6/uL Hgb (13.7-17.5) g/dL Hct (40.1-51.0) % MCV (79.0-92.2) fL MCH (25.7-32.2) pg MCHC (32.3-36.5) g/dL RDW (11.6-14.4) % Plt Count (163-337) x10^3/uL MPV (9.4-12.4) fL Gran % (34.0-67.9) % Immature Gran % (Auto) (0.001-0.429) % Nucleat RBC Rel Count (0.00-0.2) % Eos # (Auto) (0.04-0.54) x10^3/uL Immature Gran # (Auto) (0.001-0.031) x10^3u/L Absolute Lymphs (auto) (1.32-3.57) x10^3/uL Absolute Monos (auto) (0.30-0.82) x10^3/uL Absolute Nucleated RBC (0.00-0.012) x10^3u/L Lymphocytes % (21.8-53.1) % Monocytes % (5.3-12.2) % Eosinophils % (0.8-7.0) % Basophils % (0.2-1.2) % Absolute Granulocytes (1.78-5.38) x10^3/uL Basophils # (0.01-0.08) x10^3/uL Sodium (135-145) mmol/L Potassium (3.5-5.1) mmol/L Chloride (98-107) mmol/L Carbon Dioxide (22-30) mmol/L Anion Gap (5-15) MEQ/L BUN (9-20) mg/dL Creatinine (0.66-1.25) mg/dL Estimated GFR ML/MIN Glucose (74-106) mg/dL Calcium (8.4-10.2) mg/dL Ferritin 81.6 (17.9-464) ng/mL Total Bilirubin (0.2-1.3) mg/dL AST (17-59) U/L ALT (0-50) U/L Alkaline Phosphatase (38-126) U/L Troponin I < 0.012 (0.000-0.033) ng/mL Serum Total Protein (6.3-8.2) g/dL Albumin (3.5-5.0) g/dL Vitamin B12 221 L (239-931) pg/mL Folic Acid 7.62 (2.76 - >20) ng/mL Stl Occult Blood (IFOB) (NEGATIVE) Urine Opiates Level POSITIVE A (NEGATIVE) Ur Methadone NEGATIVE (NEGATIVE) Urine Barbiturates NEGATIVE (NEGATIVE) Ur Phencyclidine (PCP) NEGATIVE (NEGATIVE) Urine Amphetamine NEGATIVE (NEGATIVE) U Benzodiazepine Level NEGATIVE (NEGATIVE) Urine Cocaine NEGATIVE (NEGATIVE) Urine Marijuana (THC) NEGATIVE (NEGATIVE) C. difficile Screen (NEGATIVE) C.difficile 027-NAP1-B1 (NEGATIVE) 02/27/25 02/27/2525 Range/Units 20:00 20:00 04:34 WBC 6.3 (4.23-9.07) x10^3/uL RBC 3.00 L (4.63-6.08) x10^6/uL Hgb 10.0 L (13.7-17.5) g/dL Hct 30.3 L (40.1-51.0) % MCV 101.0 H (79.0-92.2) fL MCH 33.3 H (25.7-32.2) pg MCHC 33.0 (32.3-36.5) g/dL RDW 14.1 (11.6-14.4) % Plt Count 272 (163-337) x10^3/uL MPV 9.3 L (9.4-12.4) fL Gran % 65.8 (34.0-67.9) % Immature Gran % (Auto) 0.2 (0.001-0.429) % Nucleat RBC Rel Count 0.0 (0.00-0.2) % Eos # (Auto) 0.23 (0.04-0.54) x10^3/uL Immature Gran # (Auto) 0.01 (0.001-0.031) x10^3u/L Absolute Lymphs (auto) 0.96 L (1.32-3.57) x10^3/uL Absolute Monos (auto) 0.91 H (0.30-0.82) x10^3/uL Absolute Nucleated RBC 0.00 (0.00-0.012) x10^3u/L Lymphocytes % 15.3 L (21.8-53.1) % Monocytes % 14.5 H (5.3-12.2) % Eosinophils % 3.7 (0.8-7.0) % Basophils % 0.5 (0.2-1.2) % Absolute Granulocytes 4.13 (1.78-5.38) x10^3/uL Basophils # 0.03 (0.01-0.08) x10^3/uL Sodium (135-145) mmol/L Potassium (3.5-5.1) mmol/L Chloride (98-107) mmol/L Carbon Dioxide (22-30) mmol/L Anion Gap (5-15) MEQ/L BUN (9-20) mg/dL Creatinine (0.66-1.25) mg/dL Estimated GFR ML/MIN Glucose (74-106) mg/dL Calcium (8.4-10.2) mg/dL Ferritin (17.9-464) ng/mL Total Bilirubin (0.2-1.3) mg/dL AST (17-59) U/L ALT (0-50) U/L Alkaline Phosphatase (38-126) U/L Troponin I (0.000-0.033) ng/mL Serum Total Protein (6.3-8.2) g/dL Albumin (3.5-5.0) g/dL Vitamin B12 (239-931) pg/mL Folic Acid (2.76 - >20) ng/mL Stl Occult Blood (IFOB) NEGATIVE (NEGATIVE) Urine Opiates Level (NEGATIVE) Ur Methadone (NEGATIVE) Urine Barbiturates (NEGATIVE) Ur Phencyclidine (PCP) (NEGATIVE) Urine Amphetamine (NEGATIVE) U Benzodiazepine Level (NEGATIVE) Urine Cocaine (NEGATIVE) Urine Marijuana (THC) (NEGATIVE) C. difficile Screen NEGATIVE (NEGATIVE) C.difficile 027-NAP1-B1 PRESUMPTIVE NEGATIVE (NEGATIVE) 02/28/25 Range/Units 04:34 WBC (4.23-9.07) x10^3/uL RBC (4.63-6.08) x10^6/uL Hgb (13.7-17.5) g/dL Hct (40.1-51.0) % MCV (79.0-92.2) fL MCH (25.7-32.2) pg MCHC (32.3-36.5) g/dL RDW (11.6-14.4) % Plt Count (163-337) x10^3/uL MPV (9.4-12.4) fL Gran % (34.0-67.9) % Immature Gran % (Auto) (0.001-0.429) % Nucleat RBC Rel Count (0.00-0.2) % Eos # (Auto) (0.04-0.54) x10^3/uL Immature Gran # (Auto) (0.001-0.031) x10^3u/L Absolute Lymphs (auto) (1.32-3.57) x10^3/uL Absolute Monos (auto) (0.30-0.82) x10^3/uL Absolute Nucleated RBC (0.00-0.012) x10^3u/L Lymphocytes % (21.8-53.1) % Monocytes % (5.3-12.2) % Eosinophils % (0.8-7.0) % Basophils % (0.2-1.2) % Absolute Granulocytes (1.78-5.38) x10^3/uL Basophils # (0.01-0.08) x10^3/uL Sodium 139 (135-145) mmol/L Potassium 3.5 (3.5-5.1) mmol/L Chloride 111 H (98-107) mmol/L Carbon Dioxide 23 (22-30) mmol/L Anion Gap 9.0 (5-15) MEQ/L BUN 8 L (9-20) mg/dL Creatinine 0.74 (0.66-1.25) mg/dL Estimated GFR 107.0 ML/MIN Glucose 78 (74-106) mg/dL Calcium 8.2 L (8.4-10.2) mg/dL Ferritin (17.9-464) ng/mL Total Bilirubin < 0.10 L (0.2-1.3) mg/dL AST 35 (17-59) U/L ALT 24 (0-50) U/L Alkaline Phosphatase 80 (38-126) U/L Troponin I (0.000-0.033) ng/mL Serum Total Protein 5.6 L (6.3-8.2) g/dL Albumin 3.1 L (3.5-5.0) g/dL Vitamin B12 (239-931) pg/mL Folic Acid (2.76 - >20) ng/mL Stl Occult Blood (IFOB) (NEGATIVE) Urine Opiates Level (NEGATIVE) Ur Methadone (NEGATIVE) Urine Barbiturates (NEGATIVE) Ur Phencyclidine (PCP) (NEGATIVE) Urine Amphetamine (NEGATIVE) U Benzodiazepine Level (NEGATIVE) Urine Cocaine (NEGATIVE) Urine Marijuana (THC) (NEGATIVE) C. difficile Screen (NEGATIVE) C.difficile 027-NAP1-B1 (NEGATIVE) - Radiology Exams Ordered Rad Exams-Entire Visit: Radiology Procedures Category Date Time Status ABDOMEN AND PELVIS W CONTRAST [CT] Stat Exams 02/27/25 08:24 Completed CHEST 1 VIEW (PORTABLE) Stat Exams 02/27/25 13:47 Completed Discharge Exam General Appearance: no apparent distress Neurologic Exam: alert, oriented x 3, cooperative Eye Exam: PERRL Ears, Nose, Throat Exam: normal ENT inspection Neck Exam: normal inspection Respiratory Exam: normal breath sounds, lungs clear Cardiovascular Exam: regular rate/rhythm, normal heart sounds Gastrointestinal/Abdomen Exam: soft, normal bowel sounds, tenderness Male Genitalia Exam: deferred Rectal Exam: deferred Back Exam: normal inspection Extremity Exam: normal inspection Final Diagnosis/Problem List - Final Discharge Diagnosis/Problem (1) Diarrhea Current Visit: Yes Status: Acute Assessment & Plan: Monitor for recurrence; maintain hydration Stool studies pending (C. diff negative; cultures in process) Outpatient follow-up with Surgery 03/01/25 for further evaluation Code(s): R19.7 - DIARRHEA, UNSPECIFIED (2) GI bleed Current Visit: Yes Status: Acute Assessment & Plan: Occult stool negative; no evidence of active bleed at discharge Continue PPI therapy (Protonix) Outpatient EGD scheduled 03/01 for further evaluation Monitor hemoglobin as outpatient; transfuse if <7 g/dL or symptomatic Code(s): K92.2 - GASTROINTESTINAL HEMORRHAGE, UNSPECIFIED (3) Abdominal pain Current Visit: Yes Status: Acute Assessment & Plan: Resolved with conservative management Continue Protonix daily Monitor for recurrence; return precautions given Code(s): R10.9 - UNSPECIFIED ABDOMINAL PAIN (4) Symptomatic anemia Current Visit: Yes Status: Acute Assessment & Plan: Likely multifactorial (chronic disease vs transient GI loss) Hemoglobin stable at 10 g/dL; no transfusion indicated Outpatient follow-up with PCP for CBC, iron studies, and anemia workup Code(s): D64.9 - ANEMIA, UNSPECIFIED (5) Sore throat Current Visit: Yes Status: Acute Assessment & Plan: Resolved; strep A negative Supportive care as needed Code(s): J02.9 - ACUTE PHARYNGITIS, UNSPECIFIED (6) Cough Current Visit: Yes Status: Acute Assessment & Plan: CXR unremarkable; viral panel negative Monitor symptoms; supportive care only Code(s): R05.9 - COUGH, UNSPECIFIED (7) HTN (hypertension) Current Visit: Yes Status: Acute Code(s): I10 - ESSENTIAL (PRIMARY) HYPERTENSION (8) HLD (hyperlipidemia) Current Visit: Yes Status: Acute Code(s): E78.5 - HYPERLIPIDEMIA, UNSPECIFIED (9) Depression Current Visit: Yes Status: Acute Code(s): F32.A - DEPRESSION, UNSPECIFIED (10) History of colon cancer Current Visit: No Status: Chronic Assessment & Plan: Continue oncology and surgical follow-up for surveillance Colonoscopy per surgery recommendations Code(s): Z85.038 - PERSONAL HISTORY OF MALIGNANT NEOPLASM OF LARGE INTESTINE - Discharge Discharge Date: 02/28/25 Disposition: Home, Self-Care Condition: Stable Prescriptions: New PANTOPRAZOLE 40 mg Tablet [Protonix 40MG Tablet] 40 mg PO QAM 30 Days #30 tab Ondansetron ODT 4 MG [Zofran Odt 4 mg] 4 mg PO Q6HPRN PRN #30 tab PRN Reason: Nausea Continue Atorvastatin Calcium [Lipitor] 40 mg PO DAILY Tamsulosin HCl 0.4 mg [Flomax 0.4 MG] 0.4 mg PO BID Sumatriptan Succinate [Imitrex] 100 mg PO DAILY PRN PRN PRN Reason: Headache Modafinil 100 mg [Provigil 100MG Tablet] 200 mg PO BID Amlodipine Besylate 5 mg [Norvasc 5 mg] 5 mg PO BID Pregabalin 75 mg PO .1800,2200 tadalafiL [Tadalafil] 5 mg PO DAILY Testosterone Cypionate 200 mg IM Q14D Losartan Potassium 50 mg [Cozaar 50 MG] 50 mg PO DAILY Non-Formulary Drug [Non-Formulary Item] 1 each PO Q4-6HPRN PRN PRN Reason: Pain Venlafaxine HCl ER 75 mg [Effexor XR 75 MG] 75 mg PO DAILY Albuterol 8 gm Mdi Hfa [Ventolin Hfa MDI] 2 puffs IH Q4H PRN PRN PRN Reason: Shortness Of Breath Discontinued Celecoxib 100 mg [celeBREX 100 MG] 200 mg PO BID Instructions: Abdominal pain in adults - Discharge instructions Follow up with: NELDA CASTRO MD [Primary Care Provider, [facility]] - 03/07/25 2:15 pm JUAN PABLO MCKENZIE NP [Non-Physician Practitioner, GENERAL SURGERY] - 03/01/25 11:10 am Referral Note: [facility] Forms: Discharge Instructions
== END 2025-02-28 18:16 | disposition home or self-care (01) ==
LOC: ED 07:50 → MED SURG 12:32
PROVIDERS: ADMIT Internal Medicine; ATTEND Internal Medicine
DX: R19.7 Diarrhea, unspecified (principal); K92.2 Gastrointestinal hemorrhage, unspecified; R10.9 Unspecified abdominal pain; D64.9 Anemia, unspecified; J02.9 Acute pharyngitis, unspecified; R05.8 Other specified cough; I10 Essential (primary) hypertension; E78.5 Hyperlipidemia, unspecified; F32.A Depression, unspecified; Z85.038 Personal history of other malignant neoplasm of large intestine; Z79.899 Other long term (current) drug therapy
CPT/HCPCS: 36415; 71045; 74177; 80053; 80307; 81001; 82607; 82728; 82746; 83540; 83550; 83690; 84484; 85025; 86850; 86900; 86901; 87045; 87046; 87177; 87209; 87328; 87329; 87427; 87493; 87637; 87651; 93005; 93041; 93268; 96374; 96375; 99285; G0328; G0378; Q3014